=== PATIENT | female | born 1955 | race Caucasian/White ===

== ENCOUNTER 2020-06-28 16:14 | Emergency (ER) | payer MEDICARE, SELFPAY ==
--- NOTE | 2020-06-28 16:24 | ED.GENADULT ---
HPI - General Adult General Chief complaint: Skin/Abscess/Foreign Body Stated complaint: Rash Time Seen by Provider: 06/28/20 16:23 Source: patient Mode of arrival: ambulatory Limitations: no limitations History of Present Illness HPI narrative: 65-year-old female patient presents to the the medical center with complaints of a rash to the abdomen, back and lower extremities for the past month. Patient states she has had issues with bedbugs before in the past but states that she had never had a rash before in the past. Patient states they are very itchy. Patient states she has been treated with Bactrim and hydroxyzine for this which gave her no relief. Denies any fevers, chest pain or shortness of breath. Denies any new lotions detergents or soaps. Related Data Home Medications Medication Instructions Recorded Confirmed aspirin [Adult Low Dose Aspirin] 81 mg PO DAILY 06/28/20 06/28/20 cholecalciferol (vitamin D3) 125 mcg PO EVERY OTHER DAY 06/28/20 06/28/20 [Vitamin D3] glipizide 10 mg PO BID 06/28/20 06/28/20 hydrochlorothiazide 25 mg PO DAILY 06/28/20 06/28/20 lisinopril 10 mg PO DAILY 06/28/20 06/28/20 loratadine 10 mg PO DAILY 06/28/20 06/28/20 lovastatin 10 mg PO DAILY 06/28/20 06/28/20 oxybutynin chloride 10 mg PO DAILY 06/28/20 06/28/20 pioglitazone 30 mg PO DAILY 06/28/20 06/28/20 sitagliptin [Januvia] 100 mg PO DAILY 06/28/20 06/28/20 Allergies Allergy/AdvReac Type Severity Reaction Status Date / Time No Known Allergies Allergy Verified 06/28/20 16:40 Review of Systems Review of Systems: Narrative: CONSTITUTIONAL: Denies fever, chills, or sweats. EYES: Denies visual changes, redness, or discharge. ENT: Denies rhinorrhea, congestion, sore throat, or otalgia. CARDIOVASCULAR: Denies chest pain, palpitations, or edema. RESPIRATORY: Denies cough or dyspnea. GASTROINTESTINAL: Denies abdominal pain, nausea, vomiting, or diarrhea. GENITOURINARY: Denies dysuria or hematuria. SKIN: Positive rash with itchiness to the lower abdomen, back and bilateral lower extremities x1 month MUSCULOSKELETAL: Denies back pain, joint pain, or myalgia. NEUROLOGIC: Denies headache, numbness, or weakness. PSYCHIATRIC: Denies anxiety or depression. [facility] Past Medical History Medical History (Updated 06/28/20 @ 16:46 by FELIPE Meek) Cardiac disorder Vein stripping Diabetes Hypercholesterolemia Hypertension Surgical History Surgical History (Updated 06/28/20 @ 16:27 by FELIPE Meek) History of cholecystectomy Comments At the time of my signature I agree with nursing past medical history, surgical, social, and family history. There is no relevant family history pertinent to the presenting complaint. Exam Narrative: Exam Narrative: GENERAL: Well-appearing, well-nourished, and in no acute distress. HEAD: Normocephalic, atraumatic. EYES: PERRLA and EOMI. ENT: Nares clear, no rhinorrhea or epistaxis. Mucous membranes moist. NECK: Supple. No lymphadenopathy CHEST: Clear to auscultation. No respiratory distress. HEART: Regular rate and rhythm. No murmur heard. Normal peripheral pulses. ABDOMEN: Soft, nontender, nondistended, normal active bowel sounds. EXTREMITIES: Normal range of motion. No edema. SKIN: Warm, dry, patient has small red bumps surrounded by erythema. There is some blistered areas and papular eruptions and flat patches that seem to be inflamed to the areas of the belt area that wraps around to the lower back that goes into the buttocks as well as similar rash noted to bilateral lower extremities below the knee. NEURO: No focal deficits. Alert and oriented x3. Course Vital Signs Vital signs: Vital Signs Temperature 36.7 C 06/28/20 16:29 Pulse Rate 79 06/28/20 16:29 Respiratory Rate 16 06/28/20 16:29 Blood Pressure 105/62 06/28/20 16:29 Pulse Oximetry 98 06/28/20 16:29 Temperature 36.7 C 06/28/20 16:29 Pulse Rate 79 06/28/20 16:29 Respiratory Rate 16 06/28/20 16:29
[2020-06-28 16:29] VITALS: BP 105/62; PULSE 79; RESP 16; TEMP 36.7; O2SAT 98
== END 2020-06-28 16:53 | disposition home or self-care (01) ==
PROVIDERS: Emergency Provider Nurse Practitioner Family; PCP Internal Medicine
DX: S30.861A Insect bite (nonvenomous) of abdominal wall, initial encounter (principal); S20.469A Insect bite (nonvenomous) of unspecified back wall of thorax, initial encounter; S30.860A Insect bite (nonvenomous) of lower back and pelvis, initial encounter; W57.XXXA Bitten or stung by nonvenomous insect and other nonvenomous arthropods, initial encounter; E11.9 Type 2 diabetes mellitus without complications; E78.00 Pure hypercholesterolemia, unspecified; I10 Essential (primary) hypertension
CPT/HCPCS: 99213; G0463

== ENCOUNTER 2025-08-22 17:52 | Emergency (ER) | payer MEDICARE, SELFPAY ==
--- OUTSIDE RECORDS SUMMARY | 2025-08-22 17:55 | XMS_ITS | Encounter Summary ---
Author Organization [facility] Address [address] [place] [address] Phone Care Team Providers Care Basket Hand Weaver Name Role Phone Trish Og MD Primary Care Provider [phone] Lisa Porter MD Unavailable Guy Roche MD Primary Care Provider [phone] Ryan Coats MD Primary Care Provider + Reason for Visit * Reason Comments Medication Refill Encounter Details Date Type Department Care Team (Late st Contact Info) Description 04/04/2023 Refill [facility] - Endocrinology - [place] [address] [place] [address] Lisa Porter MD [address] [address] Medication Refill Social History Tobacco Use Types Packs/Day Years Used Date Smoking Tobacco: Former Cigarettes Smokeless Tobacco: Never Alcohol Use Standard Drinks/Week Comments No 0 (1 standard drink = 0.6 oz pur e alcohol) Comments No Sex and Gender Information Value Date Recorded Sex Assigned at Female 07/06/2023 9:19 AM CDT Legal Sex Female 7:46 PM CDT Gender Identity Female 07/06/2023 9:19 AM CDT Sexual Orientation Not on file documented as of this encounter Miscellaneous Notes * Telephone Encounter - Tonya Nieto RN - 04/05/2023 8:44 AM CDT Requested Prescriptions Pending Prescriptions Disp Refills ??? glipiZIDE (GLUCOTROL) 10 MG Tablet [Pharmacy Med Name: GLIPIZIDE 10MG TABLETS] 180 Tablet 1 Sig: TAKE 1 TABLET BY MOUTH TWICE DAILY ??? Ozempic, 1 MG/DOSE, 4 MG/3ML Solution Pen-injector [Pharmacy Med Name: OZEMPIC 1MG PER DOSE (1X4MG PEN)] 9 mL 1 Sig: INJECT 1 MG UNDER THE SKIN ONCE WEEKLY ??? Glucose Blood (OneTouch Verio) Strip 100 Strip 3 Sig: Test blood glucose 1x daily. E11.42, non-insulin dependent ??? Blood Glucose Monitoring Suppl (OneTouch Verio) w/Device Kit 1 Kit 0 Si Kit by Does not apply route daily. Test blood glucose 1x daily. E11.42, non-insulin dependent ??? OneTouch Delica Lancets 33G Misc Sig: by Does not apply route. Next appt: 04/13/2023 documented in this encounter Plan of Treatment Upcoming Encounters Date Type Department Care Team (Late st Contact Info) Description 11/13/2025 10:30 AM EFFICIENCY MINER Office Visit [facility] - Endocrinology - [place] [address] [place] [id number] Lisa Porter MD [address] [phone] documented as of this encounter Visit Diagnoses Diagnosis Type 2 diabetes mellitus with diabetic polyneuropathy, without long-term current use of insulin- Primary documented in this encounter Care Teams Basket Hand Weaver Relationship Specialty Start Date End Date Trish Og MD PCP - General Internal Medicine 12/09/17 03/06/24 Guy Roche MD [address] [place] [address] [address] [place] [address] PCP - General Family Medicine 03/07/24 04/17/25 Ryan Coats MD [address] [place] [address] [address] [place] [address] PCP - General Family Medicine 04/18/25 Lisa Porter MD #2 [facility] [address] [address] Consulting Physician Endocrinology 05/26/22 documented as of this encounter
--- OUTSIDE RECORDS SUMMARY | 2025-08-22 17:55 | XMS_ITS | Encounter Summary ---
Author Organization [facility] Address [address] [place] [address] Phone Care Team Providers Care Roller Picker Name Role Phone Lisa Porter MD Unavailable Ryan Coats MD Primary Care Provider + Reason for Referral * Radiology Services (Routine) - Closed Specialty Diagnoses / Procedures Referred By Dorothy noel Referred To Contact Radiology Diagnoses Encounter for screening mammogram for breast cancer Procedures [facility] SCREENING BILATERAL DIGITAL W CAD W KILEY Ryan Coats MD [address] [place] [address] [address] [place] [address] Phone: tel: fax: Referral ID Status Reason Start Date Expiration Date Visits Re quested Visits Authorized [id number] Closed 04/18/2025 1 1 Encounter Details Date Type Department Care Team (Late st Contact Info) Description 04/18/2025 Transcribe Orders [facility] Call Center [address] [place], [place] [id number] Ryan Coats MD [address] [place] [address] [address] [place] [address] Encounter for screening mammogram for breast cancer (Primary Dx) Social History Tobacco Use Types Packs/Day Years [...] on file documented as of this encounter Plan of Treatment Upcoming Encounters Date Type Department Care Team (Late st Contact Info) Description 11/13/2025 10:30 AM 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 Office Visit [facility] - Endocrinology [facility] [address]2 [place] [address] Lisa Porter MD #[address] [address] documented as of this encounter Results * [facility] SCREENING BILATERAL DIGITAL W CAD W KILEY (06/05/2025 10:55 AM CDT) Anatomical Region Laterality Modality breast Bilateral Mammography 06/05/2025 10:1 7 AM CDT Narrative 06/06/2025 12:08 PM CDT - [facility] SCREENING BILATERAL DIGITAL W CAD W KILEY BILATERAL DIGITAL SCREENING MAMMOGRAM 3D/2D WITH CAD WITH MEDIOLATERAL OBLIQUE CRANIOCAUDAL: 06/05/2025 The study was acquired using digital technology and interpreted from soft copy. Current study was also evaluated with ICAD version 7.2. 2D digital mammographic views, as well as 3D digital tomosynthesis were performed in the CC and MLO projections. CLINICAL: Routine screening. Patient has no complaints. No personal history of cancer. No family history of breast cancer. COMPARISONS: Comparison is made to exams dated: 03/17/2024, 02/11/2022, 12/03/2020, [facility] BREAST TISSUE:The breasts are heterogeneously dense, which may obscure small masses. FINDINGS: There are benign calcifications in both breasts. No significant masses, calcifications, or other findings are seen in either breast. There has been no significant interval change. IMPRESSION: BENIGN There is no mammographic evidence of malignancy. A 1 year screening mammogram is recommended. A letter will be sent to the patient with these results. The patient will be entered into a reminder system with a target due date of 1 year for her next screening exam. Electronically signed by: Nhi holden/penrad:06/06/2025 10:48:48 Legal Referee(s): RT Zara(R)(M), [facility] letter sent: Normal Exam Reading location: [facility] Mammogram BI-RADS: Category 2: Benign Procedure Note Nhi Leone MD - 06/06/2025 - [facility] SCREENING BILATERAL DIGITAL W CAD W KILEY BILATERAL DIGITAL SCREENING MAMMOGRAM 3D/2D WITH CAD WITH MEDIOLATERAL OBLIQUE CRANIOCAUDAL: 06/05/2025 The study was acquired using digital technology and interpreted from soft copy. Current study was also evaluated with ICAD version 7.2. 2D digital mammographic views, as well as 3D digital tomosynthesis were performed in the CC and MLO projections. CLINICAL: Routine screening. Patient has no complaints. No personal history of cancer. No family history of breast cancer. COMPARISONS: Comparison is made to exams dated: 03/17/2024, 02/11/2022, 12/03/2020, and 11/05/2020 [facility]. BREAST TISSUE:The breasts are heterogeneously dense, which may obscure small masses. FINDINGS: There are benign calcifications in both breasts. No significant masses, calcifications, or other findings are seen in either breast. There has been no significant interval change. IMPRESSION: BENIGN There is no mammographic evidence of malignancy. A 1 year screening mammogram is recommended. A letter will be sent to the patient with these results. The patient will be entered into a reminder system with a target due date of 1 year for her next screening exam. Electronically signed by: Nhi holden/penrad:06/06/2025 10:48:48 Legal Referee(s): Lois Diaz, RT(R)(M), [facility] letter sent: Normal Exam Reading location: [place] Mammogram BI-RADS: Category 2: Benign Ryan Coats MD IMG MAMMO ORDERABLES Fin al Result documented in this encounter Visit Diagnoses Diagnosis Encounter for screening mammogram for breast cancer- Primary Encounter for screening mammogram for breast cancer documented in this encounter Care Teams Roller Picker Relationship Specialty Start Date End Date Ryan Coats MD [address] [facility] [address] [place] [address] PCP - General Family Medicine 04/18/25 Lisa Porter MD #2 [facility] [address] [place] [address] Consulting Physician Endocrinology 05/26/22 documented as of this encounter
--- OUTSIDE RECORDS SUMMARY | 2025-08-22 17:55 | XMS_ITS | Encounter Summary ---
Author Organization [facility] Address [address] [place] [address] Phone Care Team Providers Care Barrel Builder Name Role Phone Trihs Og MD Primary Care Provider Lisa Porter MD Unavailable Guy Roche MD Primary Care Provider [phone] Ryan Coats MD Primary Care Provider + Reason for Visit * Reason Comments Medication Refill Encounter Details Date Type Department Care Team (Late st Contact Info) Description 10/18/2022 Refill [facility] - Endocrinology - [place] [address] [place] [address] Lisa Porter MD [address] [address] Medication Refill Social History Tobacco [...] AM CDT Sexual Orientation Not on file COVID-19 Exposure Response Date Recorded In the last 10 days, have yo u been in contact with someone who was confirmed or suspected to have Coronavirus/COVID-19? No / Unsure 10/08/2022 10:04 AM CARDIOLOGY MANAGER documented as of this encounter Miscellaneous Notes * Telephone Encounter - Tonya Nieto, RN - 10/19/2022 9:22 AM CARDIOLOGY MANAGER Requested Prescriptions Pending Prescriptions Disp Refills ??? Ozempic, 1 MG/DOSE, 4 MG/3ML Solution Pen-injector [Pharmacy Med Name: OZEMPIC 1MG PER DOSE (1X4MG PEN)] 9 mL Sig: INJECT 1 MG UNDER THE SKIN ONCE A WEEK Next appt: 01/14/2023 IOLOGY MANAGER documented in this encounter Plan of Treatment Upcoming Encounters Date Type Department Care Team (Late st Contact Info) Description 11/13/2025 10:30 AM CARDIOLOGY MANAGER Office Visit [facility] - Endocrinology - [place] [address] [place] [address] Lisa Porter MD [address] [address] documented as of this encounter Visit Diagnoses Not on filedocumented in this encounter Care Teams Barrel Builder Relationship Specialty Start Date End Date Trish Og MD PCP - General Internal Medicine 12/09/17 03/06/24 Guy Roche MD [address] [place] [address] PCP - General Family Medicine 03/07/24 04/17/25 Ryan Coats MD [address] [facility] [address] [place] [address] PCP - General Family Medicine 04/18/25 Lisa Porter MD #2 [facility] [address] [place] [address] Consulting Physician Endocrinology 05/26/22 documented as of this encounter
--- OUTSIDE RECORDS SUMMARY | 2025-08-22 17:55 | XMS_ITS | Clinical Summary ---
Author Organization [facility] Address [address] [facility], [place] [address] Phone Care Team Providers Care Marble Chip Terrazzo Worker Name Role Phone Lisa Porter MD Unavailable Ryan Coats MD Primary Care Provider + Allergies No known active allergies Medications lisinopril (PRINIVIL, ZESTRIL) 10 MG Tablet 8 Active hydroCHLOROthia zide 25 MG Tablet 8 Active oxybutynin (DITROPAN) 5 MG Tablet 8 Active Aspirin 81 MG Tablet Take 81 mg by mouth daily. Active ergocalciferol (VITAMIN D) 20491 UNIT Capsule 8 Active Lancets (VITALET 26 GAUGE LANCET) [facility] [place] test blood sugar once daily 5 Active Blood Glucose Monitoring Suppl (TRUERESULT BLOOD GLUCOSE) w/Device Kit test blood sugars once daily 5 Active loratadine (CLARITIN) 10 MG Tablet TK 1 T PO QD PRN 0 9 Active triamcinolone (KENALOG) 0.1 % Cream Apply. 0 Active diphenhydrAMINE (BENADRYL) 25 MG Capsule Take 25 mg by mouth. 0 Active cetirizine (ZyrTEC) 10 MG Tablet TAKE 1 TABLET BY MOUTH DAILY NEEDED 3 Active Blood Glucose Monitoring Suppl (OneTouch Verio) w/Device KitIndications: Type 2 diabetes mellitus with diabetic polyneuropathy, without long-term current use of insulin 1 Kit by Does not apply route daily. Test blood glucose 1x daily. E11.42, non-insulin dependent 1 Kit 3 Active Glucose Blood (OneTouch Ultra) Strip Once a day 100 Each 3 4 Active Lancets (OneTouch Delica Plus [id number]) MiscIndications :Type 2 diabetes mellitus with diabetic polyneuropathy, without long-term current use of insulin USE DAILY 100 Each 3 4 Active glipiZIDE (GLUCOTROL) 5 MG Tablet Take 1 Tablet by mouth 2 times daily. 180 Tablet 1 5 Active semaglutide, 1 MG/DOSE, (Ozempic, 1 MG/DOSE,) 4 MG/3ML Solution Pen-injectorInd ications:Type 2 diabetes mellitus with diabetic polyneuropathy, without long-term current use of insulin 1 mg by Subcutaneous route once a week. 9 mL 1 5 Active Active Problems Problem Noted Date Diagnosed Date Thyroid nodule greater than or equal to 1.5 cm in diameter incidentally noted on imaging study 03/26/2021 Class 1 obesity due to exces s calories with serious comorbidity and body mass index (BMI) of 33.0 to 33.9 in adult 05/15/2019 Dyslipidemia 05/15/2019 High blood pressure 05/15/2019 Type 2 diabetes mellitus wit h diabetic polyneuropathy, without long-term current use of insulin 01/14/2018 Diabetic polyneuropathy asso ciated with type 2 diabetes mellitus 01/14/2018 Encounters Date Type Department Care Team Description 06/05/2025 10:14 AM CDT - 06/05/2025 11:59 PM CDT Hospital Encounter [facility] [address] [place] [address] Ryan Coats MD Discharge Disposition: Discharged to home or Selfcare 06/05/2025 Travel from Last 3 Months Family History Medical History Relation Name Comments Hypertension Brother Hypertension Mother Relation Name Status Comments Brother Father Mother Social History Tobacco Use Types Packs/Day Years Used Date Smoking Tobacco: Former Cigarettes Smokeless Tobacco: Never Tobacco Cessation:Counseling Given: Not Answered Alcohol Use Standard Drinks/Week Comments No 0 (1 standard drink = 0.6 oz pur e alcohol) Comments No Sex and Gender Information Value Date Recorded Sex Assigned at Female 07/06/2023 9:19 AM CDT Legal Sex Female 7:46 PM CDT Gender Identity Female 07/06/2023 9:19 AM CDT Sexual Orientation Not on file Last Filed Vital Signs Vital Sign Reading Time Taken Comments Blood Pressure 118/70 05/08/2025 10:14 AM CDT Pulse 75 05/08/2025 10:14 AM CDT Temperature 36.3 C (97.3 F) 05/08/2025 10:14 AM CDT Respiratory Rate 22 05/08/2025 10:14 AM CDT Oxygen Saturation 95% 05/08/2025 10:14 AM CDT Inhaled Oxygen Concentration - - Weight 86 kg (189 lb 9.6 oz) 05/08/2025 10:14 AM CDT Height 170.2 cm (5' 7) 11/06/2024 10:34 AM BIOINFORMATICS RESEARCH TECHNICIAN Body Mass Index 29.7 11/06/2024 10:34 AM BIOINFORMATICS RESEARCH TECHNICIAN Plan of Treatment Upcoming Encounters Date Type Department Care Team (Late st Contact Info) Description 11/13/2025 10:30 AM BIOINFORMATICS RESEARCH TECHNICIAN Office Visit [facility] [place] [address] [place] [address] Lisa Porter MD [address] [address] Health Maintenance Due Date Last Done Comments Hepatitis C Virus (HCV) Screening 1955 TdaP Immunization 1955 Pneumococcal Immunization (50+ years) (1 of 2 - PCV) 1974 Cologuard 2000 Colonoscopy 2000 Colorectal Cancer Screening 2000 Immunochemical Fecal Occult Blood 2000 Zoster Immunization (1 of 2) 2005 Respiratory Syncytial Virus (RSV) Immunization (Adult) (1 - Risk 60-74 years 1-dose series) 2015 Medicare Initial AWV [id number] 05/22/2020 Diabetes: Nephropathy Screening 04/06/2024 04/06/2023, 04/06/2023, 01/12/2023, Additional history exists Influenza Immunization (#1) 2025 SARS-COV-2 Immunization ( season) 2025 Diabetes: Hemoglobin A1c 11/07/2025 025, 02/05/2025, 11/06/2024, Additional history exists Diabetes: Eye Exam 12/26/2025 12/26/2024, 03/06/2019 Diabetes: Foot Exam 02/05/2026 02/05/2025, Mammogram 06/05/2026 06/05/2025, 02/21, 02/11/2022, Additional history exists DEXA Bone Density 06/27/2026 06/27/2024 Hepatitis B Immunization Aged Out No longer eligible based on patient's age to complete this topic Human Papillomavirus (HPV) Immunization Aged Out No longer eligible based on patient's age to complete this topic Meningococcal Immunization (ACWY) Aged Out No longer eligible based on patient's age to complete this topic Rotavirus Immunization Aged Out No lo nger eligible based on patient's age to complete this topic Procedures Procedure Name Priority Date/Time Associated Diagnosis Comments [facility] SCREENING BILATERAL DIGITAL W CAD W KILEY Routine 06/05/2025 10:55 AM CDT Encounter for screening mammogram for breast cancer POCT GLYCOSYLATED HEMOGLOBIN Routine 05/08/2025 10:21 AM CDT Type 2 diabetes mellitus with diabetic polyneuropathy, without long-term current use of insulin (HCC) HM DILATED EYE EXAM 12/26/2024 1 2:00 AM BIOINFORMATICS RESEARCH TECHNICIAN AK[facility]IL BONE DENSITOMETRY AXIAL SKELETON Routine 06/27/2024 1:45 PM CDT Encounter for osteoporosis screening in asymptomatic postmenopausal patient UR MICROALBUMIN/CREATIN INE RATIO RANDOM 04/06/2023 12:00 AM CDT from Last 3 Months or Most Recently Relevant to Health Maintenance Results * [facility] SCREENING BILATERAL DIGITAL W CAD W KILEY (06/05/2025 10:55 AM CDT) Anatomical Region Laterality Modality breast Bilateral Mammography 06/05/2025 10:1 7 AM CDT Narrative 06/06/2025 12:08 PM CDT - [facility] SCREENING BILATERAL DIGITAL W CAD W KILEY BILATERAL DIGITAL SCREENING MAMMOGRAM 3D/2D WITH CAD WITH MEDIOLATERAL OBLIQUE CRANIOCAUDAL: 06/05/2025 The study was acquired using digital technology and interpreted from soft copy. Current study was also evaluated with [employer] FIMA version 7.2. 2D digital mammographic views, as well as 3D digital tomosynthesis were performed in the CC and MLO projections. CLINICAL: Routine screening. Patient has no complaints. No personal history of cancer. No family history of breast cancer. COMPARISONS: Comparison is made to exams dated: 03/17/2024, 02/11/2022, 12/03/2020, and [facility]. BREAST TISSUE:The breasts are heterogeneously dense, which [...] next screening exam. Electronically signed by: Nhi holden/isabel:06/06/2025 10:48:48 Braid Pattern Setter(s): RT Zara(Ghada)(M), [facility] letter sent: Normal Exam Reading location: [facility] Mammogram BI-RADS: Category 2: Benign Procedure Note Nhi Leone MD - 06/06/2025 - [facility] SCREENING BILATERAL DIGITAL W CAD W KILEY [...] exams dated: 03/17/2024, 02/11/2022, 12/03/2020, and 11/05/2020 [facility]. BREAST TISSUE:The breasts are heterogeneously dense, [...] next screening exam. Electronically signed by: Nhi Leone M.D. ab/isabel:06/06/2025 10:48:48 Braid Pattern Setter(s): RT Zara(R)(M), [facility] letter sent: Normal Exam Reading location: [place] Mammogram BI-RADS: Category 2: Benign Ryan Coats MD IMG MAMMO ORDERABLES Fin al Result * (ABNORMAL) POCT GLYCOSYLATED HEMOGLOBIN (05/08/2025 10:21 AM CDT) HGB-A1C 6.7(A) 4 - 6 % Blood 05/08/2025 10:2 1 AM CDT Lisa Porter MD POINT OF CARE TESTING (MANUAL) F inal Result * HM DILATED EYE EXAM (12/26/2024 12:00 AM BIOINFORMATICS RESEARCH TECHNICIAN) 12/26/2024 us Provider Scan PROCEDURE/MINOR SURGICAL ORDERAB LES Final Result SCAN * [facility] BONE DENSITOMETRY AXIAL SKELETON (06/27/2024 1:45 PM CDT) Anatomical Region Laterality Modality BODY N/A Computed Radiogr aphy 06/27/2024 8:31 PM CDT Impressions 06/27/2024 8:34 PM CDT IMPRESSION: Low Bone Mass. REFERENCE: Bone mineral density: T-Score: Normal (T-score above or = -1.0) Low bone mass (T-score between -1.0 and -2.5) replaces the previously used term osteopenia Osteoporosis (T-score = or below -2.5) Z-Score: Within the expected range for age (Z-score above -2.0) Below the expected range for age (Z-score is -2.0 or below) Please see below follow up recommendations. Medical evaluation for secondary causes of low bone mineral density may be appropriate. FRAX is a World Health Organization validated fracture risk assessment tool that calculates a person's 10 year probability of a major osteoporosis related fracture and hip fracture. According to the National Osteoporosis Foundation guidelines, postmenopausal women and men age 50 or older with low bone mass and a 10 year probability of a major osteoporosis related fracture = or greater than 20% or a 10 year probability of a hip fracture = or greater than 3% should be considered for pharmacological treatment for the prevention of osteoporosis. For further information, including treatment recommendations, please refer to the 2019 ISCD Official Positions (http://www.iscd.org) and the NOF's Clinician's Guide to Prevention and Treatment of Osteoporosis (http://www.nof.org/professionals/clinical-guidelines) Narrative 06/27/2024 8:34 PM CDT EXAM DESCRIPTION: [facility] BONE DENSITOMETRY AXIAL SKELETON REASON FOR STUDY: 69 y/o year old F with given history of: Encounter for osteoporosis screening in asymptomatic postmenopausal patient Curing Room Supervisor/Model: [employer] (S/N [id number]) CLINICAL INFORMATION: Current height: 67 inches Maximum height: 67 inches Weight: 184 pounds Risk factors: Postmenopausal COMPARISON: None available FINDINGS: AP LUMBAR SPINE L1-L4: Total BMD is 1.184 g/cm2 T-score is -0.1 LEFT HIP: Total BMD is 0.781 g/cm2 T-score is -1.8 Femoral neck BMD is 0.854 g/cm2 T-score is -1.3 FRAX: 10 year risk for a major osteoporotic fracture is 9.4 %, 10 year risk for a hip fracture is 1.2 % THIS IS AN ELECTRONICALLY VERIFIED FINAL REPORT 06/27/2024 8:31 PM - Electronically signed by Robi Drummond M.D. MF: [email or web address] Report ID: [id number] Reading Location: [place] [id number] Procedure Note Robi Drummond MD - 06/27/2024 EXAM DESCRIPTION: [facility] BONE DENSITOMETRY AXIAL SKELETON REASON FOR STUDY: 69 y/o year old F with given history of: Encounter for osteoporosis screening in asymptomatic postmenopausal patient Curing Room Supervisor/Model: [employer] (S/N [id number]) CLINICAL INFORMATION: Current height: 67 inches Maximum height: 67 inches Weight: 184 pounds Risk factors: Postmenopausal COMPARISON: None available FINDINGS: AP LUMBAR SPINE L1-L4: Total BMD is 1.184 g/cm2 T-score is -0.1 LEFT HIP: Total BMD is 0.781 g/cm2 T-score is -1.8 Femoral neck BMD is 0.854 g/cm2 T-score is -1.3 FRAX: 10 year risk for a major osteoporotic fracture is 9.4 %, 10 year risk for a hip fracture is 1.2 % THIS IS AN ELECTRONICALLY VERIFIED FINAL REPORT 06/27/2024 8:31 PM - Electronically signed by Robi Drummond M.D. MF: [email or web address] Report ID: [id number] Reading Location: [id number] IMPRESSION: Low Bone Mass. REFERENCE: Bone mineral density: T-Score: Normal (T-score above or = -1.0) Low bone mass (T-score between -1.0 and -2.5) replaces the previously used term osteopenia Osteoporosis (T-score = or below -2.5) Z-Score: Within the expected range for age (Z-score above -2.0) Below the expected range for age (Z-score is -2.0 or below) Please see below follow up recommendations. Medical evaluation for secondary causes of low bone mineral density may be appropriate. FRAX is a World Health Organization validated fracture risk assessment tool that calculates a person's 10 year probability of a major osteoporosis related fracture and hip fracture. According to the National Osteoporosis Foundation guidelines, postmenopausal women and men age 50 or older with low bone mass and a 10 year probability of a major osteoporosis related fracture = or greater than 20% or a 10 year probability of a hip fracture = or greater than 3% should be considered for pharmacological treatment for the prevention of osteoporosis. For further information, including treatment recommendations, please refer to the 2019 ISCD Official Positions (http://www.iscd.org) and the NOF's Clinician's Guide to Prevention and Treatment of Osteoporosis (http://www.nof.org/professionals/clinical-guidelines) Gyu Roche MD IMG DEXA ORDERABLES Final Re sult * UR MICROALBUMIN/CREATININE RATIO RANDOM (04/06/2023 12:00 AM CDT) ALB/CREAT RATIO 8 Normal - Normal SCAN 04/06/2023 us Provider Scan URINE ORDERABLES Final Result SCAN from Last 3 Months or Most Recently Relevant to Health Maintenance Insurance MEDICARE C [employer] Care Teams Marble Chip Terrazzo Worker Relationship Specialty Start Date End Date Ryan Coats MD [address] [facility] [address] [place] [address] PCP - General Family Medicine 04/18/25 Lisa Porter MD #[address] [facility] [address] [place] [address] Consulting Physician Endocrinology 05/26/22
--- OUTSIDE RECORDS SUMMARY | 2025-08-22 17:55 | XMS_ITS | Clinical Summary ---
Author Organization [facility] Address [address] [place] [address] Care Team Providers Care Lead Recoverer Name Role Phone Trish Og MD Primary Care Provider Allergies No known active allergies Medications glyBURIDE (DIABETA) 5 mg tablet TAKE 1 TABLET BY MOUTH BEFORE BREAKFAST 60 6 2 Active oxybutynin XL (DITROPAN-XL) 10 mg 24 hr tablet take 1 tablet by oral route every day 30 0 7 Active Additional Information Patient not taking.Reported on 05/11/2017 blood glucose diagnostic (TRUETEST TEST STRIPS) strip test daily 1 by finger stick route 100 strip 5 5 Active lancets (LANCETS,ULTRA THIN) 26 gauge [facility] test blood sugar once daily 100 each 5 5 Active blood-glucose meter (TRUERESULT BLOOD GLUCOSE SYSTM) kit test blood sugars once daily 1 kit 0 5 Active blood-glucose meter (TRUERESULT BLOOD GLUCOSE SYSTM) kit test blood sugars once daily 1 kit 0 5 Active lisinopril (PRINIVIL,ZESTR IL) 10 mg tablet TAKE 1 TABLET BY MOUTH EVERY DAY 30 0 0 Active Additional Information Patient not taking.Reported on 05/11/2017 lisinopril (PRINIVIL,ZESTR IL) 10 mg tablet Take 1 tablet (10 mg total) by mouth daily. 30 tablet 3 7 Active hydroCHLOROthia zide (HYDRODIURIL) 25 mg tablet Take 1 tablet (25 mg total) by mouth daily. 30 tablet 3 7 Active diphenhydrAMINE (diphenhydrAMIN E) 25 mg capsule Take 1 tablet/capsule (25 mg total) by mouth every 6 (six) hours as needed for itching 20 capsule 0 Active triamcinolone (KENALOG) 0.1 % cream Apply topically 2 (two) times a day 453.6 g 0 Active Active Problems No known active problems Surgical History Surgery Date Site/Laterality Comments CHOLECYSTECTOMY 1986 gallbladder removed HYSTERECTOMY Hysterectomy Medical History Medical History Date Comments Arthritis Arthritis Hypertension Hypertension Hx Other Medical cellulitis; Com ments: follow-up Hx Other Medical Diabetes Family History Medical History Relation Name Comments Coronary artery disease Father Duane nary artery disease; Cause of : Coronary artery disease Heart disease Father Heart disease; Hypertension Mother Hypertension; Relation Name Status Comments Father (Age 78) Mother Social History Tobacco Use Types Packs/Day Years Used Date Smoking Tobacco: Never Alcohol Use Standard Drinks/Week Comments No 0 (1 standard drink = 0.6 oz pur e alcohol) Comments Unknown Sex and Gender Information Value Date Recorded Sex Assigned at Not on file Legal Sex Female 8:35 AM ENGINEER Gender Identity Not on file Sexual Orientation Not on file Obstetrics History Last Filed Vital Signs Vital Sign Reading Time Taken Comments Blood Pressure 111/76 02/13/2021 3:30 PM CDT Pulse 88 02/13/2021 4:30 PM CDT Temperature 36.5 C (97.7 F) 02/13/2021 3:53 PM CDT Respiratory Rate 15 02/13/2021 4:30 PM CDT Oxygen Saturation 96% 02/13/2021 4:30 PM CDT Inhaled Oxygen Concentration - - Weight 97.5 kg (215 lb) 02/13/2021 11:22 AM CDT Height 170.2 cm (5' 7) 02/13/2021 11:22 AM CDT Body Mass Index 33.67 02/13/2021 11:22 AM CDT Plan of Treatment Not on file Insurance IDPA Care Teams Lead Recoverer Relationship Specialty Start Date End Date Trish Og MD PCP - General 02/13/21
--- OUTSIDE RECORDS SUMMARY | 2025-08-22 17:55 | XMS_ITS | Data Portability ---
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 Plan of Treatment Reminders Order Date Submit Date Provider Last Modified By Organization Details Last Modified Time Details Appointments None recorded. Lab lipid panel, serum 2024 025 [facility] [address], [place], [address], 5 06:44:46 noninvasive colorectal cancer DNA + occult blood screening, QL, stool 2024 025 AUDUBON [facility] (Cologuard Orders Only), [address], [address], [place], [address], 5 17:49:54 CMP, serum or plasma 2024 025 [facility], 2022 Sharon Silva, [address], [place], [address], 5 06:44:48 CMP, serum or plasma 2023 024 [facility], 2022 Sharon Silva, [address], [place], [address], 4 10:13:19 albumin/cre atinine, mass ratio, urine 2023 024 [facility], 2022 Sharon Silva, [address], [place], [address], 4 10:13:18 Referral None recorded. Procedures None recorded. Surgeries None recorded. Imaging DEXA, axial skeleton + vertebral fracture assessment 2023 AUDUBON Os ([facility]) Scheduling, [address] [place], [address], 4 21:36:54 MAMMO, screening, digital, bilateral 2023 [facility] ([facility]) Scheduling, [address] [place], [address], 4 13:39:29 Medication Orders Ozempic 2 mg/dose (8 mg/3 mL) subcutaneou s pen injector [facility]23 [id number], [address] , [place], [place], [id number], 5 11:53:12 Patient TargetsNo targets recorded. Patient Instructions Encounter Date Encounter Id Patient Instructions Last Modified By Organization Details Last Modified Time 01/03/2024 [id number] mammogram: about this test ssuthan Not available 01/03/2024 11:49:41 A healthy lifestyle: care instructions ssuthan Not available 01/03/2024 11:49:41 high cholesterol : care instructions ssuthan Not available 01/03/2024 11:49:41 learning about type 2 diabetes ssuthan Not available 01/03/2024 11:49:41 type 2 diabetes: care instructions ssuthan Not available 01/03/2024 11:49:41 learning about high blood pressure ssuthan Not available 01/03/2024 11:49:41 03/20/2024 [id number] Attending Physician Addendum I did not personally see or examine the patient with the resident. I was physically present to provide indirect supervision through entire encounter. I have reviewed the documentation and agree with the history, physical findings, work-up, and medical decision making as recorded. Kenya Corley MD Not available 03/24/2024 18:09:55 02/02/2025 [id number] learning about type 2 diabetes dshehata Not available 02/02/2025 11:28:50 type 2 diabetes: care instructions dshehata Not available 02/02/2025 11:28:50 high cholesterol : care instructions dshehata Not available 02/02/2025 11:28:50 tetanus and diphtheria booster: care instructions dshehata Not available 02/02/2025 11:35:34 A healthy lifestyle: care instructions dshehata Not available 02/02/2025 11:28:50 learning about high blood pressure dshehata Not available 02/02/2025 11:28:50 I was present in the clinic to discuss this patient at the time of the visit. I agree with the documented assessment and plan MD reyna [email or web address] Not available 02/05/2025 17:02:53 05/07/2025 [id number] advance care planning: care instructions dshehata Not available 05/07/2025 11:34:41 preventing falls : care instructions dshehata Not available 05/07/2025 11:34:42 Quitting Tobacco : Care Instructions dshehata Not available 05/07/2025 11:34:42 Medicare Wellnes s Preventive Checklist dshehata Not available 05/07/2025 11:34:42 eating healthy foods: care instructions dshehata Not available 05/07/2025 11:34:41 AD8 Dementia Screening Interview dshehata Not available 05/07/2025 11:34:42 I was present in the clinic to discuss this patient at the time of the visit. I agree with the documented assessment and plan Enrrique Montalvo MD [email or web address] Not available 05/07/2025 11:55:05 08/14/2025 [id number] A healthy lifestyle: care instructions Not available 08/15/2025 12:45:21 I was present an d available in the clinic during the encounter. I discussed the patient's history, exam findings, and plan with the resident physician and agree with the assessment and plan as documented. Ramakrishna Yadav MD Not available 08/15/2025 12:45:10 Reason for Referral None Reported. Results Created Date Observation Date Name Description Value Unit Range Abnormal Flag Note LastModifiedBy Organization Detail LastModifiedTime 03/20/20 24 03/21/2024 ALBUM IN/CR EATIN INE RATIO ,URIN E creatinine, urine 60.1 mg/dL notest ab. Not Available [facility] ([facility]) [address] [place], [address], 03/21/2024 10:13:18 03/20/20 24 03/21/2024 ALBUM IN/CR EATIN INE RATIO ,URIN E albumin, urine <3.0 ug/mL notest ab. Not Available [facility] ([facility]) [address] [place], [address], 03/21/2024 10:13:18 03/20/20 24 03/21/2024 ALBUM IN/CR EATIN INE RATIO ,URIN E alb/creat ratio <5 Brittney l: 0 - 29 Moder ately incre ased: 30 - 300 Sever ramiro incre ased: >300 Not Available [facility] ([facility]) [address] [place], [address], 03/21/2024 10:13:18 03/20/20 24 03/21/2024 COMP. METAB OLIC PANEL (14) glucose 137 mg/dL 70-99 above high normal Not Available [facility] ([facility]) [address] [place], [address], 03/21/2024 10:13:18 03/20/20 24 03/21/2024 COMP. METAB OLIC PANEL (14) BUN 19 mg/dL 8-27 Not Available [facility] ([facility]) [address] [place], [address], 03/21/2024 10:13:18 03/20/20 24 03/21/2024 COMP. METAB OLIC PANEL (14) creatinine 0.84 mg/dL 0.57-1 .00 Not Available [facility] ([facility]) [address] [facility], [place], [address], 03/21/2024 10:13:18 03/20/20 24 03/21/2024 COMP. METAB OLIC PANEL (14) eGFR 75 mL/mi n/1.7 3 >59 Not Available [facility] ([facility]) [address] [place], [address], 03/21/2024 10:13:18 03/20/20 24 03/21/2024 COMP. METAB OLIC PANEL (14) BUN/creatini ne ratio 23 12-28 Not Available [facility] ([facility]) [address] [place], [address], 03/21/2024 10:13:18 03/20/20 24 03/21/2024 COMP. METAB OLIC PANEL (14) sodium 139 mmol/ L 134-14 4 Not Available [facility] ([facility]) [address] [place], [address], 03/21/2024 10:13:18 03/20/20 24 03/21/2024 COMP. METAB OLIC PANEL (14) potassium 3.7 mmol/ L 3.5-5. 2 Not Available [facility] ([facility]) [address] [place], [address], 03/21/2024 10:13:18 03/20/20 24 03/21/2024 COMP. METAB OLIC PANEL (14) chloride 98 mmol/ L 96-106 Not Available [facility] ([facility]) [address] [place], [address], 03/21/2024 10:13:18 03/20/20 24 03/21/2024 COMP. METAB OLIC PANEL (14) carbon dioxide, total 26 mmol/ L 20-29 Not Available [facility] ([facility]) [address] [place], [address], 03/21/2024 10:13:18 03/20/20 24 03/21/2024 COMP. METAB OLIC PANEL (14) calcium 9.4 mg/dL 8.7-10 .3 Not Available [facility] ([facility]) [address], [place], [address], 03/21/2024 10:13:18 03/20/20 24 03/21/2024 COMP. METAB OLIC PANEL (14) protein, total 6.9 g/dL 6.0-8. 5 Not Available [facility] ([facility]) [address] [place], [address], 03/21/2024 10:13:18 03/20/20 24 03/21/2024 COMP. METAB OLIC PANEL (14) albumin 4.3 g/dL 3.9-4. 9 Not Available [facility] ([facility]) [address] [facility], [place], [address], 03/21/2024 10:13:18 03/20/20 24 03/21/2024 COMP. METAB OLIC PANEL (14) globulin, total 2.6 g/dL 1.5-4. 5 Not Available [facility] ([facility]) [address] [facility] [place], [address], 03/21/2024 10:13:18 03/20/20 24 03/21/2024 COMP. METAB OLIC PANEL (14) A/G ratio 1.7 1.2-2. 2 Not Available [facility] ([facility]) [address] [facility] [place], [address], 03/21/2024 10:13:18 03/20/20 24 03/21/2024 COMP. METAB OLIC PANEL (14) bilirubin, total 0.5 mg/dL 0.0-1. 2 Not Available [facility] ([place] [facility]) [address] [facility] [place], [address], 03/21/2024 10:13:18 03/20/20 24 03/21/2024 COMP. METAB OLIC PANEL (14) alkaline phosphatase 78 IU/L 44-121 Not Available [facility] ([facility]) [address] [facility], [place], [address], 03/21/2024 10:13:18 03/20/20 24 03/21/2024 COMP. METAB OLIC PANEL (14) AST (SGOT) 13 IU/L 0-40 Not Available [facility] ([facility]) [address] [facility], [place], [address], 03/21/2024 10:13:18 03/20/20 24 03/21/2024 COMP. METAB OLIC PANEL (14) ALT (SGPT) 12 IU/L 0-32 Not Available [facility] ([facility]) [address] [facility], [place], [address], 03/21/2024 10:13:18 08/07/20 24 08/07/2024 Hemog lobin A1c/H emogl obin. total in Blood hemoglobin A1C/hemoglob in.total in blood 7.1 % low: 4%high : 6% abnormal HGB-A 1C 7.1 (A) 4 - 6 % Not Available Not Available 02/02/2025 11:52:26 08/07/20 24 08/07/2024 Hemog lobin A1c/H emogl obin. total in Blood interpretati on and review of laboratory results Abnorm al Not Available Not Available 11:52:26 11/06/20 24 11/06/2024 Hemog lobin A1c/H emogl obin. total in Blood hemoglobin A1C/hemoglob in.total in blood 6.7 % low: 4%high : 6% abnormal HGB-A 1C 6.7 (A) 4 - 6 % Not Available Not Available 01/08/2025 10:09:57 11/06/20 24 11/06/2024 Hemog lobin A1c/H emogl obin. total in Blood interpretati on and review of laboratory results Abnorm al Not Available Not Available 10:09:57 02/03/2002/04/2025 LIPID PANEL cholesterol, total 177 mg/dL 100-19 9 Not Available [facility] ([facility]) [address] [place], [address], 02/04/2025 06:44:46 02/03/20 25 02/04/2025 LIPID PANEL triglyceride s 94 mg/dL 0-149 Not Available [facility] ([facility]) [address] [place], [address], 02/04/2025 06:44:46 02/03/20 25 02/04/2025 LIPID PANEL HDL cholesterol 67 mg/dL >39 Not Available [facility] ([facility]) [address] [place], [address], 02/04/2025 06:44:46 02/03/20 25 02/04/2025 LIPID PANEL VLDL cholesterol jd 17 mg/dL 5-40 Not Available [facility] ([facility]) [address] [place], [address], 02/04/2025 06:44:46 02/03/20 25 02/04/2025 LIPID PANEL LDL chol calc ([facility]) 93 mg/dL 0-99 Not Available [facility] ([facility]) [address] [place], [address], 02/04/2025 06:44:46 02/03/20 25 02/04/2025 COMP. METAB OLIC PANEL (14) glucose 156 mg/dL 70-99 above high normal Not Available [facility] ([facility]) [address] [place], [address], 02/04/2025 06:44:48 02/03/20 25 02/04/2025 COMP. METAB OLIC PANEL (14) BUN 17 mg/dL 8-27 Not Available [facility] ([facility]) [address] [place], [address], 02/04/2025 06:44:48 02/03/20 25 02/04/2025 COMP. METAB OLIC PANEL (14) creatinine 0.89 mg/dL 0.57-1 .00 Not Available [facility] ([facility]) [address] [place], [address], 02/04/2025 06:44:48 02/03/20 25 02/04/2025 COMP. METAB OLIC PANEL (14) eGFR 70 mL/mi n/1.7 3 >59 Not Available [facility] ([facility]) [address] [place], [address], 02/04/2025 06:44:48 02/03/20 25 02/04/2025 COMP. METAB OLIC PANEL (14) BUN/creatini ne ratio 19 12-28 Not Available [facility] ([facility]) [address] [facility] [place], [address], 02/04/2025 06:44:48 02/03/2002/04/2025 COMP. METAB OLIC PANEL (14) sodium 137 mmol/ L 134-14 4 Not Available [facility] ([facility]) [address] [facility] [place], [address], 02/04/2025 06:44:48 02/03/20 25 02/04/2025 COMP. METAB OLIC PANEL (14) potassium 3.4 mmol/ L 3.5-5. 2 below low normal Not Available [facility] ([facility]) [address] [place], [address], 02/04/2025 06:44:48 02/03/20 25 02/04/2025 COMP. METAB OLIC PANEL (14) chloride 95 mmol/ L 96-106 below low normal Not Available [facility] ([facility]) [address] [facility] [place], [address], 02/04/2025 06:44:48 02/03/20 25 02/04/2025 COMP. METAB OLIC PANEL (14) carbon dioxide, total 24 mmol/ L 20 Not Available [facility] ([facility]) [address] [place], [address], 02/04/2025 06:44:48 02/03/20 25 02/04/2025 COMP. METAB OLIC PANEL (14) calcium 9.7 mg/dL 8.7-10 .3 Not Available [facility] ([facility]) [address] [place], [address], 02/04/2025 06:44:48 02/03/2002/04/2025 COMP. METAB OLIC PANEL (14) protein, total 7.0 g/dL 6.0-8. 5 Not Available [facility] ([facility]) [address] [place], [address], 02/04/2025 06:44:48 02/03/20 25 02/04/2025 COMP. METAB OLIC PANEL (14) albumin 4.3 g/dL 3.9-4. 9 Not Available [facility] ([facility]) [address] [place], [address], 02/04/2025 06:44:48 02/03/20 25 02/04/2025 COMP. METAB OLIC PANEL (14) globulin, total 2.7 g/dL 1.5-4. 5 Not Available [facility] ([facility]) [address] [place], [address], 02/04/2025 06:44:48 02/03/2002/04/2025 COMP. METAB OLIC PANEL (14) bilirubin, total 0.5 mg/dL 0.0-1. 2 Not Available [facility] ([facility]) [address] [place], [address], 02/04/2025 06:44:48 02/03/20 25 02/04/2025 COMP. METAB OLIC PANEL (14) alkaline phosphatase 81 IU/L 44-121 Not Available [facility] ([facility]) [address] [place], [address], 02/04/2025 06:44:48 02/03/20 25 02/04/2025 COMP. METAB OLIC PANEL (14) AST (SGOT) 16 IU/L 0-40 Not Available [facility] ([facility]) [address] [place] [address], [address], 02/04/2025 06:44:48 02/03/20 25 02/04/2025 COMP. METAB OLIC PANEL (14) ALT (SGPT) 10 IU/L 0-32 Not Available [facility] ([facility]) [address] [place], [address], 02/04/2025 06:44:48 02/06/20 25 02/05/2025 Hemog lobin A1c/H emogl obin. total in Blood hemoglobin A1C/hemoglob in.total in blood 7.2 % low: 4%high : 6% abnormal HGB-A 1C 7.2 (A) 4 - 6 % Not Available Not Available 02/06/2025 14:34:59 02/06/20 25 02/05/2025 Hemog lobin A1c/H emogl obin. total in Blood interpretati on and review of laboratory results Abnorm al Not Available Not Available 14:34:59 02/17/2002/16/2025 COLOG UARD cologuard result reportable NEGATI VE negati ve normal NEGAT RUI TEST RESUL T. A negat rui Colog uard resul t indic ates a low likel ihood that a color ectal cance r (CRC) or advan natividad adeno ma (hamzah omato us polyp s with more advan natividad pre-m align ant featu res) is prese nt. The chanc e that a perso n with a negat rui Colog uard test has a color ectal cance r is less than 1 in 1500 (nega tive predi ctive value >99.9 %) or has an advan natividad adeno ma is less than 5.3% (nega tive predi ctive value 94.7% ). These data are based on a prosp ectiv e cross -sect ional study of 10,00 0 indiv idual s at [facility] risk for color ectal cance r who were scree germain with both Colog uard and colon oscop y. (Douglas Gonzalez et al, N Engl J Med 2014; 370(1 4):12 86-12 97) The brittney l value (refe rence range ) for this assay is negat rui. COLOG UARD RE-SC REENI NG RECOM MENDA TION: Perio dic color ectal cance r scree fred is an impor tant part of preve ntive healt hcare for asymp tomat ic indiv idual s at [place] [facility] risk for color ectal cance r. Follo wing a negat rui Colog uard resul t, the Ameri can Cance r Socie ty and U.S. Multi -Soci ety Task Force scree fred guide lines recom mend a Colog uard re-sc reeni ng inter dominga of 3 years . Refer ences : Ameri can Cance r Socie ty Guide line for Color ectal Cance r Scree fred: https ://fortino w.can cer.o rg/ca ncer/ colon -rect al-ca ncer/ detec tion- diagn osis- stagi ng/ac s-rec ommen datio ns.ht ml.; Bc MESA, Ochoa toth CR, Marleen dubois JK, Color ectal Cance r Scree fred: Recom menda tions for Physi cians and Patie nts from the U.S. Multi -Soci ety Task Force on Color ectal Cance r Scree fred , Perry tang rolog y 2017; 112:1 016-1 030. TEST DESCR IPTIO N: Tab site algor ithmi c karthik sis of stool DNA-b iomar kers with hemog lobin immun oassa y. Quant itati ve value s of indiv idual bioma rkers are not repor table and are not assoc iated with indiv idual bioma rker resul t refer ence range s. Colog uard is inten ded for color ectal cance r scree fred of adult s of eithe r sex, 45 years or older , who are at [facility] for color ectal cance r (CRC) . Colog uard has been appro mariia for use by the U.S. FDA. The perfo rmanc e of Colog uard was estab lishe d in a cross secti onal study of [facility] adult s aged 50-84 . Colog uard perfo rmanc e in patie nts ages 45 to 49 years was estim ated by sub-g roup karthik sis of near- age group s. Colon oscop ies perfo rmed for a posit rui resul t may find as the most clini augustine signi fican t lesio n: color ectal cance r [4.0% ], advan natividad adeno ma (incl uding sessi le gurpreet tika polyp s great er than or equal to 1cm diame ter) [20%] or non- advan natividad adeno ma [31%] ; or no color ectal neopl evelio [45%] . These estim ates are deriv ed from a prosp ectiv e cross -sect ional scree fred study of 10,00 0 indiv idual s at [facility] risk for color ectal cance r who were scree germain with both Colog uard and colon oscop y. (Douglas Gonzalez et al, N Engl J Med 2014; 370(1 4):12 86-12 97.) Colog uard may produ ce a false negat rui or false posit rui resul t (no color ectal cance r or preca ncero us polyp prese nt at colon oscop y follo w up). A negat rui Colog uard test resul t does not guara ntee the absen ce of CRC or advan natividad adeno ma (pre- cance r). The curre nt Colog uard scree fred inter dominga is every 3 years . (Amer ican Cance r Socie ty and U.S. Multi -Soci ety Task Force ). Colog uard perfo rmanc e data in a 10,00 0 patie nt pivot al study using colon oscop y as the refer ence metho d can be acces sed at the follo wing locat ion: www.e xactl abs.c om/re suljenny . Addit ional descr iptio n of the Colog uard test proce ss, warni ngs and preca ution s can be found at www.c keithogu liang.c om. Not Available [facility] (Cologuard Orders Only) [address], [place], [address], 02/20/2025 17:49:54 02/28/20 25 02/28/2025 POTAS SIUM potassium 3.6 mmol/ L 3.5-5. 2 Not Available [facility] ([facility]) [address] [facility], [place], [address], 02/28/2025 06:48:07 05/08/20 25 05/08/2025 Hemog lobin A1c/H emogl obin. total in Blood hemoglobin A1C/hemoglob in.total in blood 6.7 % low: 4%high : 6% abnormal Not Available Not Available 07/13/2025 11:29:42 05/08/20 25 05/08/2025 Hemog lobin A1c/H emogl obin. total in Blood interpretati on and review of laboratory results Abnorm al Not Available Not Available 11:29:42 03/20/20 24 03/17/2024 MAMMO , scree fred, digit al, bilat eral No observ ation record ed. etodaroma [facility] [address] [place], [address], 03/24/2024 09:53:39 06/27/20 24 06/27/2024 DEXA, axial skele ton + verte bral fract ure asses sment No observ ation record ed. dshehata [facility] [address] [place], [address], 06/28/2024 15:12:45 06/27/20 24 06/27/2024 imagi ng inter preta tion No observ ation record ed. etodaroma [facility] (Radiology) [address] [place], [address], 07/07/2024 16:46:21 06/06/20 25 06/05/2025 MAMMO , scree fred, digit al, bilat eral No observ ation record ed. smarshallma [facility] (Radiology) [address] [place], [address], 06/08/2025 16:10:32 Result Notes None recorded. Problems Name Problem SNOMED Code Status Onset Date Resolution Date Notes Provider Name and Address Organization Details Recorded Time Type 2 diabetes mellitus 28231133 Active 2016 Ryan Coats MD Attn: Accounting, [address] [place], [address], [facility] 5 11:24:37 Essential hypertens ion 54683536 Active 2016 Ryan Coats MD Attn: Accounting, [address] [place], [address], [facility] 5 11:24:24 History of varicose veins 499573732 Active 2016 Not Available [facility] 3 07:33:44 Pure hyperchol esterolem ia 089045711 Active 2017 Enrrique Montalvo MD Attn: Accounting, [address] [place], [address], [facility] 5 11:50:48 Vitamin D deficienc y 45720449 Completed 201701/18/2020 Trish Og MD Attn: Accounting, [address] [place], [address], [facility] 0 12:08:53 Generaliz ed anxiety disorder 01681496 Completed 201709/13/2018 Trish Og MD Attn: Accounting, [address] [facility], [place], [address], [place] [facility] 8 16:51:23 Obesity 979730211 Completed 201709/13/2018 Trish Og MD Attn: Accounting, [address] [facility], [place], [address], [place] [facility] 2 10:32:09 Thoracic back pain 311867401 Completed 201701/18/2020 Trish Og MD Attn: Accounting, [address] [facility], [place], [address], [place] [facility] 0 10:28:43 Body mass index 30+ - obesity 426361881 Active 2017 Not Available [facility] 3 07:33:44 Posterior rhinorrhe a 97539563 Active 2018 Not Available [facility] 3 07:33:44 Multinodu lar goiter 635641608 Active 2020 Not Available [facility] 3 07:33:44 Overactiv e urinary bladder 868465019 Active 2021 Not Available [facility] 3 07:33:44 Obesity 475127373 Active 2021 Not Available [facility] 3 07:33:44 Occult blood detected in feces 31000258 Active 2021 Not Available [facility] 3 07:33:44 Varicose veins of lower extremity 21986318 Active 2021 Not Available [facility] 3 07:33:44 Postmenop ausal state 74617658 Active 2022 Not Available [facility] 3 07:33:44 Hypokalem ia 40507904 Active 2024 Ryan Coats MD Attn: Accounting, [address] [facility], [place], [address], [place] [facility] 5 09:54:27 Problem Notes None recorded. Procedures Surgical History Date Name Laterality Status Provider Name and Address Organization Details Recorded Time Tubal Ligation completed SAMIRA Sapp [facility] 09/27/2017 11:25:56 Breast Surgery completed SAMIRA Sapp [facility] 09/27/2017 11:26:03 Imaging Results None recorded. Procedure Notes None recorded. Medical Equipment None Reported. Allergies Allergen ID Allergen Name Allergen Category Reaction Reaction Severity Criticality Documentation Date Start Date Code Code System Note Provider Name and Address Organization Details Recorded Time 649005 No known allergy (situatio n) Not available Not available Not available Not available 06/05/2021 24994 [id number] SNSAMIRA Duff [facility] 5 10:34:50 No known drug allergies Medications Name Sig Start Date Stop Date Status Note LastModified by Organization Details LastModified Time Prescript ion - Prior Authoriza tion Request 03/07 completed Not Available Not Available Not Available OneTouch Ultra Blue Test Strips USE TO TEST BLOOD SUGAR ONCE DAILY 2023 active Not Available Not Available Not Avai lable amoxicill in 500 mg capsule TAKE 1 CAPSULE BY MOUTH THREE TIMES DAILY FOR 5 DAYS 08/16 completed Not Available Not Available Not Available pioglitaz one 15 mg tablet 10/06 completed Not Available Not Available Not Available cetirizin e 10 mg tablet TAKE 1 TABLET BY MOUTH EVERY DAY NEEDED *PATIENT NEEDS APPOINTM ENT FOR FURTHER REFILLS* active Not Available Not Available No t Available atorvasta tin 10 mg tablet Take 1 tablet every day by oral route. 03/20 completed Not Available Not Available Not Available oxybutyni n chloride ER 10 mg tablet,ex tended release 24 hr TAKE 1 TABLET BY MOUTH EVERY DAY active Not Available Not Available No t Available azithromy viri 250 mg tablet TK 2 TS PO ON DAY 1, THEN TK 1 T PO D FOR 4 DAYS 02/26 completed Not Available Not Available Not Available glyburide 5 mg tablet TAKE 1 TABLET BY MOUTH TWICE DAILY 04/18 completed Not Available Not Available Not Available tizanidin e 4 mg tablet Take 1 tablet every day by oral route as needed. 09/13 completed Not Available Not Available Not Available fluconazo le 150 mg tablet 10/06 completed Not Available Not Available Not Available hydrocort isone 1 % topical ointment 09/27 completed Not Available Not Available Not Available glipizide 10 mg tablet TAKE 1 TABLET BY MOUTH TWICE DAILY 11/03 completed per endo taking half in am and other half in pm ie 5mg BID as of 08/17/23 Not Available Not Available Not Available permethri n 5 % topical cream APPLY TOPICALL Y UTD. MAY USE A SECOND TREATMEN T 14 DAYS AFTER FIRST IF LIVE LICE REMAIN 10/08 completed Not Available Not Available Not Available clindamyc in HCl 150 mg capsule 10/08 completed Not Available Not Available Not Available potassium chloride ER 10 mEq tablet,ex tended release Take 1 tablet every day by oral route after meals. 01/14 completed Not Available Not Available Not Available sulfameth oxazole 800 mg-trimet hoprim 160 mg tablet TK 1 T PO Q 12 H FOR 7 DAYS 10/08 completed Not Available Not Available Not Available lovastati n 10 mg tablet TAKE 1 TABLET BY MOUTH EVERY DAY AT DINNER active Not Available Not Available No t Available tramadol 50 mg tablet 03/07 completed Not Available Not Available Not Available triamcino lone acetonide 0.1 % topical cream APPLY TOPICALL Y TO THE AFFECTED AREA TWICE DAILY 10/08 completed Not Available Not Available Not Available OneTouch Ultra Test strips USE TO TEST ONCE DAILY active Not Available Not Available No t Available benzonata te 100 mg capsule TAKE 1 CAPSULE BY MOUTH THREE TIMES DAILY FOR 5 DAYS 06/09 completed Not Available Not Available Not Available doxycycli ne monohydra te 100 mg capsule TAKE 1 CAPSULE BY MOUTH TWICE DAILY FOR 7 DAYS active Not Available Not Available No t Available erythromy viri 5 mg/gram (0.5 %) eye ointment APPLY 1 CM RIBBON INTO THE LOWER CONJUNCT IVAL SAC(S) IN THE AFFECTED EYE(S) BY OPHTHALM IC ROUTE 3 TIMES PER DAY 10/06 completed Not Available Not Available Not Available lisinopri l 10 mg tablet TAKE 1 TABLET BY MOUTH DAILY active Not Available Not Available No t Available Banophen 25 mg capsule 02/03 completed Not Available Not Available Not Available hydroxyzi ne HCl 25 mg tablet TK 1 T PO BID PRN 03/15 /2022 completed Not Available Not Available Not Available ampicilli n 250 mg capsule 09/27 completed Not Available Not Available Not Available hydrochlo rothiazid e 25 mg tablet TAKE 1 TABLET BY MOUTH EVERY DAY IN THE MORNING active Not Available Not Available No t Available furosemid e 20 mg tablet Take 1 tablet every day by oral route in the morning. 01/29 completed Not Available Not Available Not Available ergocalci ferol (vitamin D2) 1,250 mcg (50,000 unit) capsule TAKE 1 CAPSULE BY MOUTH EVERY WEEK 03/07 completed Not Available Not Available Not Available levofloxa viir 500 mg tablet 05/13 completed Not Available Not Available Not Available methylpre dnisolone 4 mg tablets in a dose pack TAKE DIRECTED WITH MEAL 02/26 completed Not Available Not Available Not Available pioglitaz one 30 mg tablet 11/09 completed Due to weight gain/leg swelling Not Available Not Available Not Available oxybutyni n chloride 5 mg tablet TAKE 1 TABLET BY MOUTH TWICE DAILY 05/13 completed Not Available Not Available Not Available fluoxetin e 20 mg capsule Take 1 capsule every day by oral route at dinner. 03/07 completed Not Available Not Available Not Available fluticaso ne propionat e 50 mcg/actua tion nasal spray,porfirio pension 12/21 completed Not Available Not Available Not Available metformin ER 500 mg tablet,ex tended release 24 hr TAKE 2 TABLETS BY MOUTH TWICE DAILY 08/17 completed Not Available Not Available Not Available loratadin e 10 mg tablet TAKE 1 TABLET BY MOUTH EVERY DAY NEEDED 04/28 completed Not Available Not Available Not Available glipizide 5 mg tablet TAKE 1 TABLET BY MOUTH TWICE DAILY active Not Available Not Available No t Available Ventolin HFA 90 mcg/actua tion aerosol inhaler INHALE 2 PUFFS BY MOUTH EVERY 6 HOURS NEEDED FOR WHEEZING OR COUGH active Not Available Not Available No t Available Vitamin D3 25 mcg (1,000 unit) tablet Take 1 tablet every day by oral route. 01/29 completed Not Available Not Available Not Available Lancets,U ltra Thin active Not Available Not Available No t Available Januvia 100 mg tablet TAKE 1 TABLET BY MOUTH DAILY 11/23 completed per Endo d/c Not Available Not Available Not Available blood glucose test strips with disposabl e meter kit use once daily DX code E11.9 active Not Available Not Available No t Available aloglipti n 25 mg tablet TAKE 1 TABLET BY MOUTH EVERY DAY 04/18 completed Not Available Not Available Not Available aloglipti n 12.5 mg tablet TAKE 1 TABLET BY MOUTH EVERY DAY 12/21 completed Not Available Not Available Not Available Farxiga 5 mg tablet Take 1 tablet every day by oral route in the morning. 03/21 completed Not Available Not Available Not Available Jardiance 25 mg tablet TAKE 1 TABLET BY MOUTH DAILY 09/23 completed Not Available Not Available Not Available Trulicity 1.5 mg/0.5 mL subcutane ous pen injector Inject 1.5 mg every week by subcutan eous route. 04/06 completed Endo as of 07/07/22 Not Available Not Available Not Available Ozempic 0.25 mg or 0.5 mg (2 mg/1.5 mL) subcutane ous pen injector Inject by subcutan eous route. 06/[address] Porter Not Available Not Available Not Available Steglatro 5 mg tablet TAKE 1 TABLET BY MOUTH EVERY DAY IN THE MORNING 10/06 completed Not Available Not Available Not Available OneTouch Ultra2 Meter USE DIRECTED active Not Available Not Available No t Available OneTouch Delica Plus Lancet 33 gauge USE DAILY active Not Available Not Available No t Available Ozempic 1 mg/dose (4 mg/3 mL) subcutane ous pen injector INJECT 1 MG UNDER THE SKIN ONCE A WEEK active Not Available Not Available No t Available Rashaun MONTOYAID-19 Home Test kit Check as directed 08/16 completed Not Available Not Available Not Available Ozempic 2 mg/dose (8 mg/3 mL) subcutane ous pen injector INJECT 2 MG UNDER THE SKIN ONE DAY A WEEK active injects 1 mg Not Available Not Available Not Available Vitals Date Recorded Body height Body mass index (BMI) Body weight Heart rate Respiratory rate Body temperature Systolic And Diastolic Provider Name and Address Organization Details Last Updated DateTime 4 170.18 cm 27.3 kg/m2 78471.5 1 g 65 /min 14 /min 96.9 [degF] 117/65 mm[Hg] Enedina Kinerd, [place] [facility] 4 11:07:52 Date Recorded Body height Body mass index (BMI) Body weight Body temperature Heart rate Respiratory rate Systolic And Diastolic Provider Name and Address Organization Details Last Updated DateTime 5 170.18 cm 30.3 kg/m2 03156.0 8 g 98.3 [degF] 84 /min 18 /min 128/80 mm[Hg] Tana Mercado [place] [facility] 5 11:12:29 Date Recorded Body height Body temperature Heart rate Oxygen saturation Oxygen saturation in Arterial blood by Pulse oximetry Respiratory rate Body mass index (BMI) Body weight Systolic And Diastolic Provider Name and Address Organization Details Last Updated DateTime 4 170.18 cm 97.3 [degF] 65 /min 99 % 99 % 16 /min 29 kg/m2 90421.2 9 g 137/77 mm[Hg] Jeana Cunningham [place] [facility] 4 11:33:31 Date Recorded Body height Body mass index (BMI) Body weight Respiratory rate Body temperature Oxygen saturation Oxygen saturation in Arterial blood by Pulse oximetry Heart rate Systolic And Diastolic Provider Name and Address Organization Details Last Updated DateTime 5 170.18 cm 29.6 kg/m2 73614.1 3 g 20 /min 98.2 [degF] 98 % 98 % 80 /min 112/72 mm[Hg] SAMIRA Sinha [facility] 5 10:58:06 Date Recorded Body height Body mass index (BMI) Body weight Heart rate Body temperature Respiratory rate Oxygen saturation Oxygen saturation in Arterial blood by Pulse oximetry Systolic And Diastolic Provider Name and Address Organization Details Last Updated DateTime 5 170.18 cm 29 kg/m2 40093.5 9 g 77 /min 98 [degF] 16 /min 99 % 99 % 108/73 mm[Hg] Jeana Cunningham [place] [facility] 5 11:57:17 Social History Question Answer Notes LastModified by Organizat ion Details LastModified Time Tobacco Smoking Status Never Smoker SAMIRA Sapp null, [facility] 06/17/2018 11:29:06 Do You Have An Advance Directive? No Information not available 07/07/2021 Are You Blind Or Do You Have Difficulty Seeing? No Information not available 01/29/2021 What Is Your Level Of Caffeine Consumption? Occasional Information not available 02/26/2021 In The 14 Days Before Symptom Onset, Have You Had Close Contact With A Laboratory-confir med COVID-19 While That Case Was Ill? No Information not available 07/07/2021 In The 14 Days Before Symptom Onset, Have You Had Close Contact With A Person Who Is Under Investigation For COVID-19 While That Person Was Ill? No Information not available 07/07/2021 Have You Been To An Area Known To Be High Risk For COVID-19? No Information not available 07/07/2021 Are You Deaf Or Do You Have Serious Difficulty Hearing? No Information not available 01/29/2021 What Type Of Diet Are You Following? REGULAR Information not available 01/29/2021 Are There Any Guns Present In Your Home? No Information not available 01/29/2021 In The Past 7 Days, How Many Days Did You Exercise? 4 Information not available 05/07/2025 On The Days When You Exercised, How Long Did You Exercise Each Day (in Minutes)? 30 Information not available 05/07/2025 How Intense Was Your Typical Exercise? Light (stretching Or Slow Walking) Information not available 05/07/2025 In The Past 7 Days, How Much Pain Have You [place]? None Information not available 05/07/2025 In General, Would You Say You Health Is: Good Information not available 05/07/2025 Each Night, How Many Hours Of Sleep Do You Get? 8 Information no t available 05/07/2025 In The Past 7 Days, How Often Have You Madison Sleepy In The Daytime? Rarely Information not available 05/07/2025 On They Days When You Drank Alcohol, How Often Did You Have 4 Or More Drinks At A Time? Never Information no t available 05/07/2025 # Alcohol Drinks Per Week 0 Information not available 05/07/2025 What Was The Date Of Your Most Recent Tobacco Screening? 08/14/2025 Information not available 08/14/2025 Do You Use Your Seat Belt Or Car Seat Routinely? Yes Information not available 07/07/2021 Do You Have Smoke And Carbon Monoxide Detectors In Your Home? Yes Information not available 01/29/2021 How Much Tobacco Do You Smoke? No Information not available 06/19/2020 Do You Use Sunscreen Routinely? No Information not available 01/29/2021 Has Tobacco Cessation Counseling Been Provided? No Information not available 08/14/2025 On What Date Was Tobacco Cessation Counseling Provided? 05/07/2025 Information not available 05/07/2025 Sex: Female Functional Status Question Answer Note LastModified by Organizat ion Details LastModified Time Do you use any illicit or recreational drugs? No Information not available 06/09/2022 Do you or have you ever used any other forms of tobacco or nicotine? No Information not available 04/28/2022 What is your level of alcohol consumption? None Information not available 03/20/2024 Do you or have you ever used smokeless tobacco? Never used smokeless tobacco Information not available 06/19/2020 Are you currently employed? Yes Information not available 05/07/2025 Are you able to care for yourself independently? Yes Information not available 01/29/2021 What is your occupation? [employer] 05/07/25 Information not available 05/07/2025 Do you or have you ever used e-cigarettes or vape? Never used electronic cigarettes Information not available 06/19/2020 Mental Status Question Answer Note LastModified by Organization D etails LastModified Time Do you feel stressed (tense, restless, nervous, or anxious, or unable to sleep at night)? [id number] Information not available 07/07/2021 Family History Relationship Description Onset Age of this Age Resolved Age Notes LastModified by Organization Details LastModified Time Mother Dementia [email or web address] Not availa ble 09/27/2017 11:24:43 Mother Hypertensive disorder [email or web address] Not available 04/2017 11:25:03 Brother Hypertensive disorder [email or web address] Not available 04/2017 11:25:03 Notes:05/07/25 Medical History Condition Response Coronary Artery Disease N Other N Atrial Fibrillation N High Blood Pressure Y Kidney or Bladder Problems N Thyroid Problems N GI Problems N Depression N COPD N Blood Clots N Have you had a mammogram in the last yea r? N Skin Problems N Anemia N Heart Attack ([place]) N Anxiety Disorder N Diabetes Y Muscle, Joint, or Bone Problems N Seizures/Epilepsy N Have you had a colonoscopy in the last 1 0 years? N Acid Reflux (GERD) N Cancer N Stroke N Asthma N Allergies N Have you had a PSA blood test in the las t year? N High Cholesterol N Hepatitis N Liver Disease N Headaches N Heart Failure N Osteoporosis N Gynecological History Statement/Question Response Current Control Method Hysterectom y LMP Unknown Obstetrics History GPAL:G 2 P 0 0 0 2 Type Value Living 2 Total 2 Past Encounters Encounter ID Performer Location Encounter Start Date Encounter Closed Date Diagnosis/Indication Diagnosis SNOMED-CT Code Diagnosis ICD10 Code Diagnosis IMO Codes Diagnosis Note [id number] MD Franko Shipman ([facility]) [address] [place] [address] 09/27/2017 10:47:56 09/29/2017 11:38:30 Type 2 diabetes mellitus 45874062 E11.9 Home BS fairly controlled .Ct with diet control and exercise, medication as prescribed F/u with eye and foot providersC heck BS at least once/day at home before meal/bedti me Essential hypertension 08897946 I10 Controlled . Ct same with low salt diet Overweight 228949867 E66 .3 Recommend to loose weight with diet control and exercise. Screening for malignant neoplasm of colon 210544488 Z12.11 Refuses colonoscop y Health liliam ntenance alteration 70539263 Z78.9 Baseline labs History of varicose veins 752410892 Z86.79 Had surgery before. Using tika hose while on her feet. [id number] MD Franko Sanders [facility] ([facility]) [address] [place] [address] 10/08/2017 10:38:42 10/20/2017 08:43:22 Gynecologic examination 97628419 Z01.419 Safe sex counseling was done. Patient was advised against the use of alcohol, tobacco and drugs. BSE was reviewed and recommende d. Will obtain last mammogram record. Fecal occult blood testing was ordered. Will do DEXA scan at 65. Bladder mu scle dysfunction - overactive 081313697 N32.81 Will send rx fo oxybutynin to the pharmacy. [id number] MD Franko Shipman ([facility]) [address] [place] [address] 11/03/2017 09:49:32 11/23/2017 11:13:58 Acute upper respiratory infection 85243428 J06.9 Hydrate well. Use humidifier Take medication as prescribed , If getting worse come in / go to [facility] to ct with OTC robitussin you bought before. [id number] MD Franko Shipman ([facility]) [address] [place] [address] 12/07/2017 10:45:01 12/07/2017 14:30:20 Type 2 diabetes mellitus 82805198 E11.9 Home BS fairly controlled .Ct with diet control and exercise, medication as prescribed F/u with eye and foot providersC heck BS at least once/day at home before meal/bedti me Addendum 12/07/17A1C 10.2Does not want injection. Increase glyburide to 5 mm GID and add januvia 100mg daily.Does not want to be on metformin- causes diarrhoea. Call back with BS readings in 2 wks.diet control emphasized .Refer to [facility] . Essential hypertension 90399148 I10 Controlled [address] Ct same with low salt diet Varicose v eins of lower extremity 29377536 I83.893 Had stripping 10-15 yrg ago, bothering lately.Ct with support hose. refer Generalize d anxiety disorder 13761049 F41.1 Empiricall y try fluoxetine 20mg daily, aware if weird dream/suic idal thoughts to stop and call the office. Vitamin D deficiency 347 06902 E55.9 weekly Vit D for 8 wks sent. Pure hypercholesterolemia 457621806 E78.00 LDL 110. Started on lovastatin and low cholestrol diet emphasized . [id number] MD Franko Shipman [facility] ([facility]) [address] [place] [address] 03/07/2018 10:32:17 03/07/2018 13:55:47 Type 2 diabetes mellitus 95410620 E11.9 Home BS fairly controlled .Ct with diet control and exercise, medication as prescribed F/u with eye and foot providersC heck BS at least once/day at home before meal/bedti me Addendum 12/07/17A1C 10.2Does not want injection. Increase glyburide to 5 mm GID and add januvia 100mg daily.Does not want to be on metformin- causes diarrhoea. Call back with BS readings in 2 wks.diet control emphasized .Refer to [employer] . Addendum 03/07/18Hom e BS lot better. Ct same with diet control and exercise. Essential hypertension 68083852 I10 Controlled . Ct same with low salt diet Generalize d anxiety disorder 92541289 F41.1 Empiricall y try fluoxetine 20mg daily, aware if weird dream/suic idal thoughts to stop and call the office. Addendum 03/07/18ym ptomatical y lot better, not started the medication . Pure hypercholesterolemia 852392134 E78.00 LDL 110. Started on lovastatin and low cholestrol diet emphasized . History of varicose veins 488474846 Z86.79 Had surgery before. Using tika hose while on her feet. Vitamin D deficiency 347 80652 E55.9 check level Obesity 118372128 E66.9 Recommend to loose weight with diet control and exercise. Screening mammography 24 371149 Z12.31 [id number] MD Franko Shipman 14 IM [address] [facility] [place] [address] 04/04/2018 10:39:22 04/04/2018 12:19:40 Acute upper respiratory infection 61560033 J06.9 Hydrate well. Use humidifier Take medication as prescribed , If getting worse come in / go to [facility] to ct with OTC robitussin you bought before. [id number] MD Franko Shipman 14 IM [address] [facility] [place] [address] 05/13/2018 10:35:58 05/13/2018 17:33:56 Type 2 diabetes mellitus 46740042 E11.9 Home BS fairly controlled .Ct with diet control and exercise, medication as prescribed F/u with eye and foot providersC heck BS at least once/day at home before meal/bedti me Addendum 12/07/17A1C 10.2Does not want injection. Increase glyburide to 5 mm GID and add januvia 100mg daily.Does not want to be on metformin- causes diarrhoea. Call back with BS readings in 2 wks.diet control emphasized .Refer to [employer] . Addendum 03/07/18Hom e BS lot better. Ct same with diet control and exercise. Addendum 05/13/18A1c 8.2Increas e alogliptin to 25mg daily.Ct with diet control and exercise, medication as prescribed F/u with eye and foot providersC heck BS at least once/day at home before meal/bedti me Essential hypertension 91056944 I10 Controlled . Ct same with low salt diet Generalize d anxiety disorder 68485357 F41.1 Empiricall y try fluoxetine 20mg daily, aware if weird dream/suic idal thoughts to stop and call the office. Addendum 05/13/18ym ptomatical ly lot better, not started the medication . Pure hypercholesterolemia 849869516 E78.00 LDL 84.Low cholestrol diet emphasised Ct medication as prescribed Obesity 053896927 E66.9 Recommend to loose weight with diet control and exercise. History of varicose veins 699457542 Z86.79 Had surgery before. Using tika hose while on her feet.Adden dum 05/13/18 Wearing tika hose, feels better, no cramps lately Bladder mu scle dysfunction - overactive 285559783 N32.81 Under care by , on oxybutynin daily, recommende d Kegel exercise. Vitamin D deficiency 347 88064 E55.9 Take daily vit D 3 100units. [id number] MD Franko ANAYA [address] [facility] [place] [address] 06/02/2018 14:34:14 06/14/2018 09:34:12 Thoracic back pain 560430669 M54.6 Vague history. DM, HTN. SBP on different arms ok. Evaluate for ACS, pancreatit is. Atypical chest pain 1025 58532 R07.89 Differenti als - Costochond ritis, pneumonia. CXR to evaluate. [id number] MD Franko Shipman 14 IM [address] [facility] [address] [place] [address] 06/17/2018 11:04:02 06/20/2018 09:42:23 Pure hypercholesterolemia 504874861 E78.00 LDL 84.Low cholestrol diet emphasised Ct medication as prescribed Type 2 uri betes mellitus 94252771 E11.9 Home BS fairly controlled .Ct with diet control and exercise, medication as prescribed F/u with eye and foot providersC heck BS at least once/day at home before meal/bedti me Addendum 12/07/17A1C 10.2Does not want injection. Increase glyburide to 5 mm GID and add januvia 100mg daily.Does not want to be on metformin- causes diarrhoea. Call back with BS readings in 2 wks.diet control emphasized .Refer to [employer] . Addendum 03/07/18Hom e BS lot better. Ct same with diet control and exercise. Addendum 05/13/18A1c 8.2Increas e alogliptin to 25mg daily.Ct with diet control and exercise, medication as prescribed F/u with eye and foot providersC heck BS at least once/day at home before meal/bedti me Addendum 06/17/18A1c 8.0Home lot better since last visit.Ct with diet control and exercise, medication as prescribed F/u with eye and foot providersC heck BS at least once/day at home before meal/bedti me Essential hypertension 93307678 I10 Controlled . Ct same with low salt diet Generalize d anxiety disorder 39550115 F41.1 Empiricall y try fluoxetine 20mg daily, aware if weird dream/suic idal thoughts to stop and call the office. Addendum 06/17/18ym ptomatical ly lot better, not started the medication . Bladder mu scle dysfunction - overactive 689143221 N32.81 Under care by , on oxybutynin daily, recommende d Kegel exercise. Obesity 094361071 E66.9 Recommend to loose weight with diet control and exercise. Strain of right trapezius muscle 8243007229 7141698 S29.012D On & off issue. Do stretching exercise.B nalini now [id number] MD Franko Shipman 14 IM [address] [facility] [place] [address] 07/01/2018 13:57:33 07/06/2018 16:45:53 Contact dermatitis 06569430 L25.9 Probably due to sumac.Use the cream, Avoid exposureIf no better in few days / getting worse, come in / go to ER. [id number] MD Franko Shipman 14 IM [address] [facility] [place] [address] 09/13/2018 15:53:45 09/14/2018 14:43:53 Essential hypertension 48362082 I10 [address]rolled . Ct same with low salt diet Type 2 uri betes mellitus 65511951 E11.9 Home BS fairly controlled .Ct with diet control and exercise, medication as prescribed F/u with eye and foot providersC heck BS at least once/day at home before meal/bedti me Pure hypercholesterolemia 230285155 E78.00 LDL 84.Low cholestrol diet emphasised Ct medication as prescribed Bladder mu scle dysfunction - overactive 206252053 N32.81 Under care by , on oxybutynin daily, recommende d Kegel exercise. Body mass index 30+ - obesity 543463635 Z68.39 Recommend to loose weight with diet control and exercise. Vitamin D deficiency 347 53165 E55.9 check level [id number] MD Franko Shipman [address] [facility] [place] [address] 09/22/2018 10:22:54 09/22/2018 15:43:11 Type 2 diabetes mellitus 97003514 E11.9 Home BS fairly controlled .Ct with diet control and exercise, medication as prescribed F/u with eye and foot providersC heck BS at least once/day at home before meal/bedti meAddendum 09/22/18A1c 8.1Agree to try metformin ER 500mg 2 in the morning and repeat A1c in 3 months before next visit. Recommende d diet control and exercise. [id number] MD Franko Shipman 14 IM [address] [facility] [place] [address] 10/10/2018 15:01:48 10/11/2018 17:25:04 [place] eye disease 657338190 H10.89 Use the medication , If getting worse go to ER. [id number] MD Franko Shipman [address] [facility] [place] [address] 12/21/2018 14:38:45 12/22/2018 10:44:34 Type 2 diabetes mellitus 02678459 E11.9 Home BS fairly controlled .Ct with diet control and exercise, medication as prescribed F/u with eye and foot providersC heck BS at least once/day at home before meal/bedti meAddendum 09/22/18A1c 8.1Agree to try metformin ER 500mg 2 in the morning and repeat A1c in 3 months before next visit. Recommende d diet control and exercise.Home BS better per the pt, Check A1c by next visit. Essential hypertension 06926820 I10 [address] same with low salt diet Pure hypercholesterolemia 532471304 E78.00 LDL 84.Low cholestrol diet emphasised Ct medication as prescribed Body mass index 30+ - obesity 627001243 Z68.39 Recommend to loose weight with diet control and exercise. Bladder mu scle dysfunction - overactive 925432806 N32.81 Under care by , on oxybutynin daily, recommende d Kegel exercise. Posterior rhinorrhea 758 32830 R09.82 Avoid known allergens. Taking loratadine PRN [id number] MD Franko Shipman 14 [address] [facility] [place] [address] 03/20/2019 11:27:39 03/21/2019 10:03:49 Type 2 diabetes mellitus 05580205 E11.9 Home BS fairly controlled .Ct with diet control and exercise, medication as prescribed F/u with eye and foot providersC heck BS at least once/day at home before meal/bedti meAddendum 09/22/18A1c 8.1Agree to try metformin ER 500mg 2 in the morning and repeat A1c in 3 months before next visit. Recommende d diet control and exercise.Home BS better per the pt, Check A1c by next visit.03/20A1c 8.9- pt refuses to be on insulin/an y type of shots- agree to see Endo and nutritinis t, will refer.Add Farxiga 5mg daily with morning mealStop soda/yovany lates Essential hypertension 62106545 I10 Controlled [address] same with low salt diet Pure hypercholesterolemia 851594507 E78.00 Low cholestrol diet emphasised Ct medication as prescribed Body mass index 30+ - obesity 805195878 Z68.39 Recommend to loose weight with diet control and exercise. Bladder mu scle dysfunction - overactive 059608896 N32.81 Under care by , on oxybutynin daily, recommende d Kegel exercise. Vitamin D deficiency 347 85003 E55.9 check level Screening for malignant neoplasm of colon 032587120 Z12.11 Refuses colonoscop y [id number] MD Franko Shipman 14 IM 4 [facility] [address] [address] 07/06/2019 09:59:05 07/07/2019 11:43:02 Pure hypercholesterolemia 348601358 E78.00 Low cholestrol diet emphasised Ct medication as prescribed Type 2 uri betes mellitus 53617580 E11.9 03/20/19A1c 8.9- pt refuses to be on insulin/an y type of shots- agree to see Endo and nutritinis t, will refer.Add Farxiga 5mg daily with morning mealStop soda/yovany lates 07/06/19Did see Dr.TaeHome DEVLIN [facility] k A1c today- 6.6 Essential hypertension 63471507 I10 [address] same with low salt diet Body mass index 30+ - obesity 818950130 Z68.39 Recommend to loose weight with diet control and exercise. Bladder mu scle dysfunction - overactive 370213544 N32.81 Under care by , on oxybutynin daily, recommende d Kegel exercise. Screening for malignant neoplasm of colon 802582113 Z12.11 Refuses colonoscop y History of varicose veins 969909809 Z86.79 Had surgery before. Using tika hose while on her feet.Adden dum 05/13/18 Wearing tika hose, feels better, no cramps lately 07/06/19Not wearing stockings. [id number] MD Franko Shipman 14 IM [address] [facility] [place] [address] 08/02/2019 11:19:10 08/03/2019 12:10:53 Conjunctivitis 4361029 H10.9 Use the eye drops. If no better call/ go to ER [id number] MD Franko Shipman 14 IM [address] [facility] [place] [address] 10/06/2019 10:35:07 10/09/2019 11:38:41 Essential hypertension 78300150 I10 Controlled [address] same with low salt diet Type 2 uri betes mellitus 90590784 E11.9 07/06/19 Did see BS betterChec k A1c today- 6.6 10/06/19 On alogliptin and glyburide 5 of 2 tabs BID per the EndoContro l BS better Pure hypercholesterolemia 578578330 E78.00 Low cholestrol diet emphasised Ct medication as prescribed Body mass index 30+ - obesity 864193896 Z68.39 Recommend to loose weight with diet control and exercise. Bladder mu scle dysfunction - overactive 436432486 N32.81 Under care by , on oxybutynin daily, recommende d Kegel exercise. Vitamin D deficiency 347 59839 E55.9 check level [id number] MD Franko Shipman 14 IM [address] [facility] [place] [address] 11/28/2019 11:30:06 11/29/2019 12:28:19 Acute gingivitis 02400196 K05.00 recommend to f/u with your dentist.Am oxilOral care recommende d.Note for jury duty given Please excuse the above patient from jury duty as she cannot stay longer at a place for a long time, had to use bathroom frequently ' [id number] MD Franko Shipman 14 IM [address] [facility] [place] [address] 01/18/2020 10:19:51 01/19/2020 08:55:31 Essential hypertension 07174210 I10 [address]rolled [address] same with low salt diet Type 2 uri betes mellitus 07243085 E11.9 10/06/19 On alogliptin and glyburide 5 of 2 tabs BID per the EndoContro l BS better 01/18/20Und er care by A1c was 7.1recomme nd to control BS better.f/u with your eye provider too yearly Pure hypercholesterolemia 766767065 E78.00 Low cholestrol diet emphasised Ct medication as prescribed Bladder mu scle dysfunction - overactive 481955447 N32.81 Under care by , on oxybutynin daily before recommende d Kegel exercise. Body mass index 30+ - obesity 860298640 Z68.39 Recommend to loose weight with diet control and exercise. [id number] MD Franko Shipman 14 IM [address] [facility] [place] [address] 04/18/2020 08:40:46 04/19/2020 07:33:11 Essential hypertension 66830500 I10 Clinically feels well.Ct same with low salt diet Type 2 uri betes mellitus 21617504 E11.9 10/06/19 On alogliptin and glyburide 5 of 2 tabs BID per the EndoContro l BS better 01/18/20Und er care by A1c was 7.1recomme nd to control BS better.f/u with your eye provider too yearly04/18Home BS improving. Does see Pure hypercholesterolemia 378328631 E78.00 Low cholestrol diet emphasised Ct medication as prescribed Bladder mu scle dysfunction - overactive 424028611 N32.81 Under care by , on oxybutynin daily before recommende d Kegel exercise.Feel s well clinically . [id number] MD Franko Shipman 14 IM [address] [facility] [place] [address] 06/19/2020 13:19:05 06/20/2020 14:01:38 Pruritic rash 26134032 L28.2 ? blistery with various healing stages.try bactrim and hydroxyzin e for itching Long-term drug therapy 321287555 Z79.202 [id number] MD Franko Shipman 14 IM [address] [facility] [place] [address] 10/08/2020 15:27:32 10/09/2020 11:06:04 Essential hypertension 76938096 I10 Clinically feels well.Ct same with low salt diet Type 2 uri betes mellitus 67088464 E11.9 01/18/20 Under care by A1c was 7.1recomme nd to control BS better.f/u with your eye provider too yearly04/18Home BS improving. Does see 11/22 06/10A1c at Endo office in May 2020 was 10.5!home BS improving per the pt Pure hypercholesterolemia 364990239 E78.00 Low cholestrol diet emphasised Ct medication as prescribed Bladder mu scle dysfunction - overactive 892480785 N32.81 Feels well clinically . Long-term drug therapy 013178597 Z79.899 Edema of l ower extremity 422971610 R60.0 Take the medication keep the leg elevated while restingif no better call back Acute gingivitis 1705708 5 K05.00 recommend to f/u with your dentist.Am oxilOral care recommende d. [id number] MD Franko Shipman 14 IM [address] [facility] [place] [address] 01/29/2021 08:50:49 01/30/2021 17:44:53 Essential hypertension 81779593 I10 Clinically feels well.Ct same with low salt diet Type 2 uri betes mellitus 52378858 E11.9 10/08/20 A1c at Endo office in May 2020 was 10.5!home BS improving per the pt01/29/21A 1c in Sep 2020 6.9on jardiance 25 + Januvia 100+ glipizide 10 BIDHome BS better Pure hypercholesterolemia 088963043 E78.00 Low cholestrol diet emphasised Ct medication as prescribed Bladder mu scle dysfunction - overactive 972974375 N32.81 Feels well clinically . Long-term drug therapy 843238788 Z79.899 Acute uppe r respiratory infection 00134952 J06.9 Hydrate well. Use humidifier Take medication as prescribed , If getting worse come in / go to ER [id number] MD Franko Shipman 14 IM [address] [facility] [address] [place] [address] 02/05/2021 11:04:44 02/06/2021 19:32:32 Acute upper respiratory infection 12736992 J06.9 Hydrate well. Use humidifier Take medication as prescribed , If getting worse come in / go to ER02/05/21n o much improvemen ttake Z shazia and medrol dos pakHydrate wellUse humifierGo to ErR if getting worse [id number] MD Franko Shipman 14 IM [address] [facility] [place] [address] 02/26/2021 08:24:35 02/27/2021 07:23:35 COVID-19 939613443 U07.1 recovering . Asymptomat ic Imaging of lung abnormal 398202585 R91.8 Probably due to # 1 above. Will do f/u CXR as recommende d Multinodular goiter [address] at the ER Left morales thyroid 19 mm Refer to Endo also do u/s [id number] MD Franko Shipman 14 IM [address] [facility] [place] [address] 06/05/2021 08:33:52 06/06/2021 13:38:34 Type 2 diabetes mellitus 58949532 E11.9 10/08/20A1 c at Endo office in May 2020 was 10.5!home BS improving per the pt01/29/21A 1c in Sep 2020 6.9on jardiance 25 + Januvia 100+ glipizide 10 BIDHome BS better06/05Doing well at homerecomm end f/u with eye Essential hypertension 95582595 I10 Clinically feels well.Ct same with low salt diet Pure hypercholesterolemia 389445409 E78.00 Low cholestrol diet emphasised Ct medication as prescribed Bladder mu scle dysfunction - overactive 655210340 N32.81 Feels well clinically . Multinodular goiter [address] at the ER Left morales thyroid 19 mm Refer to Endo also do u/06/05/21 FNA was benign [id number] MD Franko Shipman 14 IM [address] [facility] [place] [address] 07/07/2021 14:30:04 07/08/2021 10:32:01 Acute upper respiratory infection 92667243 J06.9 Hydrate well. Use humidifier Take medication as prescribed , If getting worse come in / go to ER [id number] MD Franko Shipman 14 IM [address] [facility] [place] [address] 09/23/2021 15:23:31 09/25/2021 15:41:36 Essential hypertension 79108039 I10 [address] same with low salt diet Type 2 uri betes mellitus 38870827 E11.9 01/29/21A1c in Sep 2020 6.9on jardiance 25 + Januvia 100+ glipizide 10 BIDHome BS better06/05Doing well at homerecomm end f/u with eye09/23/21 A1c per Endo on 08/14/21 was 8.7No Jardiance back on metformin home BS lately better per the pt Pure hypercholesterolemia 308503893 E78.00 Low cholestrol diet emphasised Ct medication as prescribed Bladder mu scle dysfunction - overactive 139799528 N32.81 Feels well clinically . Acute gingivitis 3844122 5 K05.00 recommend to f/u with your dentist.Am oxilOral care recommende d. Influenza vaccination declined 485293581 Z28.21 Screening for malignant neoplasm of colon 410890456 Z12.11 Refuses colonoscop y Long-term drug therapy 519977260 Z79.777 [id number] MD Franko Shipman 14 IM [address] [facility] [place] [address] 02/03/2022 09:57:30 02/04/2022 10:38:43 Type 2 diabetes mellitus 57838416 E11.9 09/23/21A1c per Endo on 08/14/21 was 8.7No Jardiance back on metformin home BS lately better per the pt02/03/22 ndo office A1c was 8.0 on 11/20/21Oz empic started per the Endo, increased to 1 mg weekly nowHome BS better controlled Does see Eye regularly Essential hypertension 97170175 I10 [address] same with low salt diet Pure hypercholesterolemia 166224775 E78.00 Low cholestrol diet emphasised Ct medication as prescribed Body mass index 30+ - obesity 245028191 Z68.39 Recommend to loose weight with diet control and exercise. Long-term drug therapy 296751819 Z79.899 Overactive urinary bladder 244631821 N32.81 better controlled .rarely uses pads [id number] MD Franko Shipman 14 IM [address] [facility] [place] [address] 04/28/2022 11:52:24 04/28/2022 15:15:36 Acute upper respiratory infection 31967964 J06.9 Hydrate well. Use humidifier Take medication as prescribed , If getting worse come in / go to ER [id number] MD Franko Shipman 14 IM [address] [facility] [place] [address] 06/09/2022 10:13:17 06/10/2022 14:23:48 Type 2 diabetes mellitus 09968083 E11.9 under care per 1c 8.3 in January later 7.3 probably in March at Endo per the ptscrewed up ozempic pens, now wants refill , on 1 mg weekly per - f/u on 07/03/22 theref/u with eye yearly Essential hypertension 27476577 I10 Controlled [address] same with low salt diet Bladder mu scle dysfunction - overactive 626707862 N32.81 Feels well clinically . Pure hypercholesterolemia 644826241 E78.00 Low cholestrol diet emphasised Ct medication as prescribed Overactive urinary bladder 483859708 N32.81 better controlled .rarely uses pads Obesity 822997167 E66.9 Recommend to loose weight with diet control and exercise. Occult blo od detected in feces 81815642 R19.5 OB positive- refer for colonoscop y'Spoke with pt. Pt stated that she did speak with Dr. Rolon office and that they explained the test to her. Pt stated that she declined the testing at this time. Pt states that she does not want the referral at this time.'per 05/05/22 notes, still doesn't want even to repeat cologuard test! Posterior rhinorrhea 758 99871 R09.82 Avoid known allergens. cetirizine helping Varicose v eins of lower extremity 91884747 I83.893 Had stripping 10-15 yrg agoCt with support hose.asymp tomatic [id number] MD Franko Shipman 14 IM [address] [facility] [place] [address] 10/06/2022 10:17:23 10/07/2022 09:30:16 Pure hypercholesterolemia 892403007 E78.00 Low cholestrol diet emphasised Ct medication as prescribed Essential hypertension 57083986 I10 [address]rolled [address] same with low salt diet Type 2 uri betes mellitus 87375145 E11.9 under care per 8.3 in January later 7.3 probably in March at [facility] per the ptscrewed up ozempic pens, now wants refill , on 1 mg weekly per - f/u on 07/03/22 theref/u with eye tgydzf79/1 04/12A1c 7.5 in Jun at EndoHome BS betterNot see eye for sometime- recommend to f/u Bladder mu scle dysfunction - overactive 975509835 N32.81 Feels well clinically . History of varicose veins 895879244 Z86.79 Had surgery before. Using tika hose while on her feet.while wearing tika hose, feels better, no cramps lately Overactive urinary bladder 481795545 N32.81 better controlled .rarely uses pads Long-term drug therapy 610754607 Z79.899 Posterior rhinorrhea 758 71210 R09.82 Avoid known allergens. cetirizine sent before, not picked it up Screening for malignant neoplasm of colon 113460946 Z12.11 Refuses colonoscop y Influenza vaccination declined 808031025 Z28.21 Overweight 570383544 E66 .3 Recommend to loose weight with diet control and exercise. [id number] MD Franko Shipman 14 IM [address] [facility] [place] [address] 04/06/2023 09:39:41 04/06/2023 15:29:12 Type 2 diabetes mellitus 92567031 E11.9 under care per in Dec was 6.2 while on metformin 1G BID ,glipizide 10mg BID + ozempic 1 mg weeklyDoes see eye yearly Essential hypertension 48715461 I10 [address] same with low salt diet Overactive urinary bladder 185877944 N32.81 better controlled .rarely uses pads Pure hypercholesterolemia 247868293 E78.00 Low cholestrol diet emphasised Ct medication as prescribed Overweight 930408957 E66 .3 Recommend to loose weight with diet control and exercise. Posterior rhinorrhea 758 99948 R09.82 Avoid known allergens. cetirizine sent Long-term drug therapy 106272564 Z79.899 Administra tion of pneumococcal vaccine 44393579 Z23 Pt refused Postmenopausal state 764 03876 Z78.0 Refuses DEXA w/u [id number] MD Franko Shipman 14 IM [address] [facility] [place] [address] 07/27/2023 14:08:58 07/28/2023 11:08:35 Acute upper respiratory infection 50213531 J06.9 Hydrate well. Use humidifier Take medication as prescribed , If getting worse come in / go to [facility] at home next few days for sneezing issueDo home covid test and call back Exposure t o SARS-CoV-2 790014971 Z20.451 [id number] MD Franko Shipman 14 IM [address] [facility] [address] [place] [address] 08/17/2023 10:21:25 08/18/2023 14:10:06 Pure hypercholesterolemia 378577033 E78.00 Low cholestrol diet emphasised Ct medication as prescribed Type 2 uri betes mellitus 76079973 E11.9 Under care per in Dec was 6.2 while on metformin 1G BID ,glipizide 10mg BID + ozempic 1 mg weeklyDoes see eye yearly08/17A1c 5.8 Endo 07/19/23- Glipizide reduced (5mg BID)On ozempic toodoes see eye Essential hypertension 95115800 I10 Controlled [address] same with low salt diet Overactive urinary bladder 823841474 N32.81 better controlled .Uses pads Overweight 234508753 E66 .3 Recommend to loose weight with diet control and exercise.) n Ozempic too per the Endo [id number] MD Franko Shipman 14 IM [address] [facility] [address] [place] [address] 01/03/2024 10:07:40 01/04/2024 09:15:10 Type 2 diabetes mellitus 74637571 E11.9 08/17/23A1c 5.8 Endo 07/19/23- Glipizide reduced (5mg BID)On ozempic toodoes see eye Pure hypercholesterolemia 117153668 E78.00 Low cholestrol diet emphasised Ct medication as prescribed Essential hypertension 18077429 I10 [address] same with low salt diet Overactive urinary bladder 253966827 N32.81 better controlled .Uses pads Overweight 513640754 E66 .3 Recommend to loose weight with diet control and exercise.) on Ozempic too per the Endo Screening mammography 24 885051 Z12.31 [id number] MD Franko Holloway 14 IM [address] [facility] [place] [address] 03/20/2024 11:10:13 03/28/2024 09:08:13 Type 2 diabetes mellitus 55852364 E11.9 Most recent HbA1c: 6.0 last month; comorbid conditions : HLD, HTN, obesity- lifestyle modificati ons discussed- low carb diet discussed w/ pt. Advised to adopt the mediterran chhaya diet, and to avoid foods that are high in sugar and that are fried.- Only on ozempic increased today and glipizide 5mg which is going to be stopped. Does follow up w/ endocrinol carla next appointmen t in July. Dr. Porter Screening for osteoporosis 692845337 Z13.820 SARS-CoV-2 mRNA vaccine declined 6907591846 Z28.21 Influenza vaccination declined 279152335 Z28.21 [id number] MD Franko Ash 14 IM [address] [facility] [address] [place] [address] 02/02/2025 10:45:06 02/06/2025 13:28:11 Obesity 215899130 E66.9 lifestyle modificati ons discussed Essential hypertension 65679483 I10 chronic, controlled - continue HCTZ 25 mg po od, lisinopril 10 mg po od Type 2 uri betes mellitus 38643218 E11.9 chronic, controlled A1c (11/14): 6.7%on glipizide 5 mg po bid, ozempic 2 mg sc weeklyFoll sheila w/ Dr. Umaña- sugars controlled at home- discussed feet checks, eye checks (does diabetic foot exam for patient)- continue annual eye exams Pure hypercholesterolemia 393419497 E78.00 chronic, controlled - continue lovastatin 10 mg po od Screening for malignant neoplasm of colon 300654051 Z12.11 Options discussed with patient for CRC screening including: - High sensitivit y guiaic fecal occult blood test (HSgFOBT) or fecal immunochem ical test (FIT) every year- Stool DNA-FIT every 1-3 years- CT colonograp hy every 5 years- Flexibile sigmoidosc opy every 5 years- Flexible sigmoidosc opy every 10 years + annual FIT- Colonoscop y screening every 10 years These options start at age 45. In patients with first degree relatives with CRC or high-risk adenomatou s polyp, screening starts at age 40 and colonoscop y is repeated every 5 years. Patient has opted to proceed with cologuard Administra tion of diphtheria, pertussis, and tetanus vaccine 248897348 Z23 [id number] MD Franko Ash 14 IM [address] [facility] [address] [place] [address], [place] [address] 05/07/2025 10:21:08 05/11/2025 09:56:51 Adult health examination 237647090 Z00.00 Health Risk Assessment collected and reviewed History an d physical examination, annual for health maintenance 69553186 Z00.00 5903345 Health Risk Assessment collected and reviewedSL UMS: Patie nt is going to be moving in with her FianceeEver, who she states she will make the POA [id number] MD Franko Don 14 IM [address] [facility] [address] [place], [place] [address] [address] 08/14/2025 11:35:29 08/16/2025 09:25:59 Well woman health examination 597043321 Z01.419 084919 - 70 y/o F A0 here for well woman exam- Doing well- Breast exam normal- Genital exam deferred due to patient preference - Postmenopa usal- had partial hysterecto my about 35 years ago- Denies h/o abnormal pap smears- Mammogram up to date- f/u in 1 year Postmenopausal state 764 81737 Z78.0 - See above Overweight 840918362 E66 .3 Health Concerns Section Related Observation LastModified by Organization Detai ls LastModified Time None Recorded Concern Status LastModified by Organization Details LastModified Time None Recorded Advance Directives Directive N: Payers Insurance Date Sequence Insurance Name Policy Number Policy James Covered Member ID James Member ID Guarantor Name 06/03/2021 SLIDING FEE SCHEDULE - DISCOUNT Germaine Lui 06/06/2025 2 [place] WHEN MEDICARE OR MEDICARE REPLACEMENT PRIMARY) Germaine Lui [id number] Germaine Lui 06/06/2025 2 [place] [facility] Germaine Lui [id number] Germaine Lui 06/06/2025 [place] [facility] Germaine Lui [id number] Germaine Lui 06/06/2025 3 [place] Germaine Lui [id number] Germaine Lui 04/22/2023 1 UNSPECIFIED REMIT PAYOR Germaine Lui 06/06/2025 3 [employer] (MEDICARE REPLACEMENT/AD VANTAGE - PPO) Germaine Lui [id number] Germaine Lui 08/13/2025 1 [employer] [place] (MEDICARE [place]PLACEMENT [place]MO) Gemraine Lui [id number] Germaine Lui 06/06/2025 1 [facility] (MEDICAID HMO) [id number] Germaine Lui [id number] Germaine Lui 06/06/2025 1 [employer] (MEDICARE REPLACEMENT/AD VANTAGE - HMO) Germaine Lui [id number] Germaine Lui Notes Date Note Type Note Provider Name and Address Organization Details Recorded Time 4 text/htm l HyperlipidemiaReported by PatientHPIFor type of hyperlipidemia, patient reportshypercholesterolemi a. For duration, patient reportschronic. For risk factors, patient reportsdiabetes,hypertensi on, andobesity. For control, patient reportsimproving. For current therapy, patient reportscurrently taking: (med as prescribed-lovastatin). For compliance, patient reportscompliant with diet. For complications, patient reportsno coronary artery disease. Hypertension F/UReported by PatientHPIFor associated symptoms, patient reportsno dizziness,no chest pain,no palpitations, andno edema. For lifestyle, patient reportsregular exerciseandlimiting/avoidi ng salt. For medications, patient reportstaking medications as directedandno side effects from medication. Sinusitis/AllergyReported by PatientHPIFor severity, patient reportsno painanddoes not limit daily activities. For risk factors, patient reportsno current smoking or tobacco useandno history of smoking. Diabetes F/UReported by PatientHPIFor review finger sticks, patient reportsfastin-130. For labs, patient reportslast a1c result: a1c 5.8 endo 07/19/23- glipizide reduced.. For context, patient reportsnot missing doses of medicationsandno side effects from medications. 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 For review finger sticks, patient reportsfastin-130. For labs, patient reportslast a1c result: a1c 6.8 endo 07/19/23- glipizide reduced.. 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, [address], [facility] [place] 03/24/2024 18:10:13 5 text/htm l ROS as noted in the HPI 70 female presenting to [facility] [facility]. No concerns today.Pt denies headache, dizziness, syncope, change in vision, congestion, sore throat, nausea, vomiting, chest pain, cough, SOB, orthopnea, abdominal pain, diarrhea, constipation, or difficulty urinating. She denies tobacco use and drinks 1-2 drinks on occasion. HTN- on HCTZ 25 mg po od, lisinopril 10 mg po od- BP at home typically good hypercholesterolemia- on lovastatin 10 mg po od T2DM- Sees Dr. Umaña, had recent eye check, last A1c 6.7% (11/14)- on glipizide 5 mg po bid, ozempic 2 mg sc weekly Enrrique Montalvo MD Attn: Accounting,[address] [facility], [place], [address], [facility] 02/05/2025 17:03:25 5 text/htm l MAW 2Reported by PatientSocial/Behavioral HistoryFor diet and nutrition, patient reportshealthy diet. For fracture risk, patient reportsno history of fracturesandno sudden unexplained fractures.Mental Status:For concentration and memory, patient reportsno decreased concentrating ability,no memory lapses or loss, anddoes not forget words. For speech/motor difficulties, patient reportsno speech difficulties,no difficulty expressing formulated concepts,no difficulty with fine manipulative tasks,no difficulty writing/copying,no slowed reaction time, anddoes not knock things over when trying to pick them up.Functional AbilityFor vision, patient reportsworse with distance(wears glasses05/07/25). For hearing, patient reportsno loss of hearing. For activities of daily living, patient reportsable to bathe with limited or no assistance,able to contol urination and bowels,able to dress with limited or no assistance,able to feed self with limited or no assistance,able to get out of chair or bed with limited or no assistance,able to groom with limited or no assistance, andable to toilet with limited or no assistance. For instrumental activities of daily living, patient reportsable to do house work with limited or no assistance,able to grocery shop with limited or no assistance,able to manage medications with limited or no assistance,able to manage money with limited or no assistance,able to prepare meals with limited or no assistance, andable to use the phone with limited or no assistance. For falls risk assessment, patient reportsno frequent falls while walking,no fall in the past year,no fall since last visit, andno dizziness/vertigo. For home safety, patient reportsno unsafe klaudia hazzards,no unsafe stairs,working smoke/co detectors, andgood lighting in the home.ROS as noted in the HPI Enrrique Montalvo MD Attn: Accounting,[address] [facility], [place], [address], [facility] 05/10/2025 23:03:41 5 text/htm l Annual GYNReported by PatientHistoryFor history, patient reportsno gynecologic complaints.Genitourinary symptomsFor urinary symptoms, patient reportsincontinencebut reportsno hematuria(h/o incontinence- on oxybutynin doing well). For vulva, patient reportsno genital lesion. For vagina, patient reportsnormal vaginal discharge. For menstrual cycle, (postmenopausal- had partial hysterectomy about 35 years ago).Breast symptomsFor breast, patient reportsno breast pain,no breast lump, andno nipple discharge.ContraceptionFor current contraception, patient reportsmonogamous relationship.Endocrine symptomsFor sexual complaints, patient reportsno sexual complaints,no pain during intercourse, andnormal libido. For menopausal symptoms, patient reportsno menopausal symptomsandnormal vaginal lubrication.Psychological symptomsFor psychological symptoms, patient reportsno depressionandno anxiety.Preventative measuresFor preventive measures, patient reportsencourage regular exercise,encourage regular mammograms starting age 40, andmammogram performed within the past year.ROS as noted in the HPI 70 y/o F A0 presents to the clinic for well woman exam.Doing well.Patient reports a few days ago she had some abdominal discomfort which has now resolved- reports she usually gets this when her daughter is on her period and stops when her daughter stops her period.Denies dysuria, increased frequency of urination and urge to urinate.Has history of urinary incontinence- uses Oxybutynin and reports it is helping. Reports she does not need Oxybutynin refilled at this time.Postmenopausal. Had partial hysterectomy about 35 years ago.Last mammogram: June 05, 2025 was normalDenies history of abnormal pap smear.No other concerns. Ramakrishna Yadav MD Attn: Accounting[address] [place], [address], [facility] 08/15/2025 12:45:55 OBGyn Episode No OBEpisode recorded.
[2025-08-22 17:56] VITALS: BP 123/59; PULSE 70; RESP 16; TEMP 36.4; O2SAT 100
--- NOTE | 2025-08-22 18:15 | ED.FEMALEGU ---
HPI - Female Genitourinary General Chief complaint: Urogenital-Female Stated complaint: poss UTI Time Seen by Provider: 08/22/25 18:15 Source: patient, RN notes reviewed and old records reviewed Mode of arrival: ambulatory Limitations: no limitations History of Present Illness HPI Narrative: 70 year old female presents to [facility] care with complaints of 1 week duration of pelvic pressure after urinating with increased symptoms since last night. Patient reports no fevers, chills or sweats,denies any abdominal pain nausea vomiting or diarrhea. Patient admits to history of overactive bladder and does take medication for this diagnosis. Patient reports no burning with urination or any flank pain. MD elicited complaint: UTI Pertinent past history: other (overactive bladder) Onset (ago): week(s) (week) Location of symptoms: pelvis Quality of pain: other (pressure after voids) Vaginal discharge: none Vaginal bleeding: none Treatment prior to arrival: none Related Data Home Medications ?Medication ?Instructions ?Recorded ?Confirmed ?Last Taken ?Type cholecalciferol (vitamin D3) 125 125 mcg PO EVERY OTHER DAY 06/28/20 06/28/20 Unknown History mcg (5,000 unit) tablet (Vitamin D3) hydrochlorothiazide 25 mg tablet 25 mg PO DAILY 06/28/20 06/28/20 Unknown History lisinopril 10 mg tablet 10 mg PO DAILY 06/28/20 06/28/20 Unknown History lovastatin 10 mg tablet 10 mg PO DAILY 06/28/20 06/28/20 Unknown History oxybutynin chloride 10 mg 10 mg PO DAILY 06/28/20 06/28/20 Unknown History tablet,extended release 24 hr pioglitazone 30 mg PO DAILY 06/28/20 06/28/20 Unknown History cetirizine 10 mg tablet mg 08/22/25 Unknown History glipizide 5 mg tablet mg 08/22/25 Unknown History semaglutide 1 mg/dose (4 mg/3 mL) mg subcut 08/22/25 Unknown History subcutaneous pen injector (Ozempic) Allergies Allergy/AdvReac Type Severity Reaction Status Date / Time No Known Allergies Allergy Verified 08/22/25 17:58 Review of Systems Review of Systems: CONSTITUTIONAL: Denies fever, chills, or sweats. CARDIOVASCULAR: Denies chest pain, palpitations, or edema. RESPIRATORY: Denies cough or dyspnea. GASTROINTESTINAL: Denies abdominal pain, nausea, vomiting, or diarrhea. GENITOURINARY: Reports no dysuria, frequency, urgency, reports pelvic pressure Denies flank pain or hematuria. SKIN: Denies rash or itching. MUSCULOSKELETAL: Denies back pain or myalgia. Denies CVA tenderness NEUROLOGIC: Denies headache All systems reviewed & are unremarkable except as noted in HPI and below PMFSH Past Medical History Medical History (Updated 08/23/25 @ 12:57 by Elly Carlson NP) Cardiac disorder Vein stripping Diabetes Hypertension Hypercholesterolemia Surgical History Surgical History (Updated 06/28/20 @ 16:27 by FELIPE Meek) History of cholecystectomy Social History Social History (Updated 08/23/25 @ 12:54 by Elly Carlson NP) Smoking status: Never smoker Alcohol intake: current Alcohol use details: rare social Substance use type: does not use Gender identity (if verbalized by the patient): Female Comments At time of signature, agree with nursing past medical, surgical, social and family history. There is no relevant family history pertinent to the presenting complaint Exam Narrative: GENERAL: Well-appearing, well-nourished, and in no acute distress. HEAD: Normocephalic, atraumatic. NECK: Supple.no lymphadenopathy CHEST: Clear to auscultation. No respiratory distress.SAO2 100% on room air HEART: Regular rate and rhythm. No murmur heard. Normal peripheral pulses. ABDOMEN: Soft, nontender, nondistended, normal active bowel sounds. No CVA tenderness, no flank pain or any blood noted in urine. EXTREMITIES: Normal range of motion. No edema., reports pelvic pressure after voiding, denies any SKIN: Warm, dry, no rash. NEURO: No focal deficits. Alert and oriented x3. Course Course Emergency Course: Patient is aware of diagnosis, understands and agrees to treatment plan.? Anticipatory guidance given.? Patient agrees to follow-up as directed and is aware of reasons to seek care at the emergency department. Portions of this record may have been created with voice recognition software Level of Care: Express Care Visit Vital Signs Vital signs: Vital Signs Temperature 36.4 C 08/22/25 17:56 Pulse Rate 70 08/22/25 17:56 Respiratory Rate 16 08/22/25 17:56 Blood Pressure 123/59 L 08/22/25 17:56 Pulse Oximetry 100 08/22/25 17:56 Oxygen Delivery Room Air 08/22/25 17:56 Temperature 36.4 C 08/22/25 17:56 Pulse Rate 70 08/22/25 17:56 Respiratory Rate 16 08/22/25 17:56 Blood Pressure 123/59 L 08/22/25 17:56 Pulse Oximetry 100 08/22/25 17:56 Oxygen Delivery Room Air 08/22/25 17:56 MDM - Female Genitourinary MDM Narrative Medical decision making narrative: Exam findings and UA show no acute concerns or changes; patient is non-toxic appearing and is in no distress.? Patient is appropriate for outpatient treatment and follow-up. Differential Diagnosis Differential diagnosis: Likely urinary tract infection, cystitis and other (pelvic pressure) Medical Records Attestation: I reviewed the patient's medical records. Lab Data Attestation: I reviewed the patient's lab results. Lab results narrative: see urine dip:yellow cloudy trace blood in urine, positive nitrite, leukocytes 3+ urine culture sent Labs: Lab Results 08/22/25 Range/Units 18:10 POC Urine Color Yellow POC Urine Clarity Cloudy POC Urine pH 5.5 POC Ur Specif [place] 1.015 POC Urine Protein Negative (Negative) POC Ur Glucose (UA) Negative (Negative) POC Urine Ketones Negative (Negative) POC Urine Blood Trace (Negative) POC Urine Nitrite Positive (Negative) POC Urine Bilirubin Negative (Negative) POC Urine Urobilinogen 0.2 POC U Leukocyte Esteras 3+ (Negative) reviewed Critical Care Time Critical Care Time Critical Care Time: No Discharge Plan Discharge Clinical Impression: Urinary tract infection Qualifiers: Urinary tract infection type: site unspecified Hematuria presence: with hematuria Qualified Code(s): N39.0 - Urinary tract infection, site not specified; R31.9 - Hematuria, unspecified Patient Disposition: Home Condition: Stable Instructions: Antibiotic Form, Urinary Tract Infection in Women (ED) Additional Instructions: Increase fluids especially cranberry juice and water Avoid caffeine and carbonated beverages Antibiotic as directed Tylenol/ibuprofen for pain or fever Follow-up with her primary care provider if further problems or concerns Recheck if you have fever over 101, nausea and vomiting. If your symptoms persist, change or worsen significantly before you can contact your personal physician then please, without delay, go to the emergency department for further evaluation. Follow-up with PCP in 7-10 days or sooner if needed Patient Language: Welsh Prescriptions: New cefdinir 300 mg capsule 300 mg PO Q12H Qty: 14 0RF No Action cholecalciferol (vitamin D3) [Vitamin D3] 125 mcg (5,000 unit) Tablet 125 mcg PO EVERY OTHER DAY pioglitazone 30 MG 30 mg PO DAILY oxybutynin chloride 10 mg Tablet Extended Release 24hr 10 mg PO DAILY lovastatin 10 mg Tablet 10 mg PO DAILY lisinopril 10 mg Tablet 10 mg PO DAILY hydrochlorothiazide 25 mg Tablet 25 mg PO DAILY cetirizine 10 mg tablet glipizide 5 mg tablet Ozempic 1 mg/dose (4 mg/3 mL) pen injector SUBCUT Follow-up/Referrals: PHYSICIAN,QUALITY AND RELIABILITY ENGINEER [Primary Care Provider, Internal Medicine] Time of Disposition: 18:26 Quality [place] Coma Scale Eyes: Open Verbal: Oriented and Alert Motor: Follows Commands Jameel Coma Total Score: 15
[2025-08-22 18:38] LABS: EDUAAPPEAR Cloudy; EDUABILI Negative (Negative); EDUABLOOD Trace (Negative); EDUACOLOR1 Yellow; EDUAGLUCOSE Negative (Negative); EDUAKETONE Negative (Negative); EDUALEUKO 3+ (Negative); EDUANITRATE Positive (Negative); EDUAPH 5.5; EDUAPROTEIN Negative (Negative); EDUASPGRAVITY 1.015; EDUAUROBILI 0.2
== END 2025-08-22 18:39 | disposition home or self-care (01) ==
PROVIDERS: Emergency Provider Registered Nurse
DX: N39.0 Urinary tract infection, site not specified (principal); R31.9 Hematuria, unspecified; E11.9 Type 2 diabetes mellitus without complications; Z79.85 Long-term (current) use of injectable non-insulin antidiabetic drugs; Z79.84 Long term (current) use of oral hypoglycemic drugs; I10 Essential (primary) hypertension; E78.00 Pure hypercholesterolemia, unspecified; N32.81 Overactive bladder
CPT/HCPCS: 81003; 87086; 87186; 99213; G0463

== ENCOUNTER 2025-11-12 12:45 | Emergency (ER) | payer MEDICARE, SELFPAY ==
[2025-11-12 12:57] VITALS: BP 95/66; PULSE 92; RESP 16; TEMP 37.2; O2SAT 99
--- NOTE | 2025-11-12 13:01 | ED.URI ---
HPI - URI/Sore Throat General Chief Complaint: Upper Respiratory Infection Stated Complaint: Cough/Runny Nose/Nasal Congestion Time Seen by Provider: 11/12/25 12:58 Source: patient Mode of arrival: ambulatory Limitations: no limitations History of Present Illness HPI Narrative: Germaine is a 70-year-old female patient presenting to the clinic today with complaints of cough, runny nose, and nasal congestion x2 days. She has not taken any medications for her symptoms. She does take a daily Claritin. Denies any fevers, chills, body aches. Denies any chest pain or shortness of breath. She is a nonsmoker. No history of asthma or COPD. Related Data Home Medications ?Medication ?Instructions ?Recorded ?Confirmed ?Last Taken ?Type cholecalciferol (vitamin D3) 125 125 mcg PO EVERY OTHER DAY 06/28/20 06/28/20 Unknown History mcg (5,000 unit) tablet (Vitamin D3) hydrochlorothiazide 25 mg tablet 25 mg PO DAILY 06/28/20 06/28/20 Unknown History lisinopril 10 mg tablet 10 mg PO DAILY 06/28/20 06/28/20 Unknown History lovastatin 10 mg tablet 10 mg PO DAILY 06/28/20 06/28/20 Unknown History pioglitazone 30 mg PO DAILY 06/28/20 06/28/20 Unknown History cetirizine 10 mg tablet mg 08/22/25 Unknown History glipizide 5 mg tablet mg 08/22/25 Unknown History semaglutide 1 mg/dose (4 mg/3 mL) mg subcut 08/22/25 Unknown History subcutaneous pen injector (Ozempic) Allergies Allergy/AdvReac Type Severity Reaction Status Date / Time No Known Allergies Allergy Verified 08/22/25 17:58 Review of Systems Review of Systems: Pertinent positives per HPI. Patient denies any fever, chills, rash, headache, visual changes, dizziness, shortness of breath, chest pain, palpitations, nausea, vomiting, diarrhea, constipation, abdominal pain, or any urinary issues. [facility] Past Medical History Medical History (Updated 11/12/25 @ 13:02 by Jourdan Nava APRN) Cardiac disorder Vein stripping Diabetes Hypertension Hypercholesterolemia Surgical History Surgical History History of cholecystectomy Social History Social History Smoking status: Never smoker Alcohol intake: current Alcohol use details: rare social Substance use type: does not use Gender identity (if verbalized by the patient): Female Comments At the time of my signature, I reviewed and agree with the nursing past medical, surgical, social, and family history. There is no relevant family history pertinent to the patient complaint. Exam Narrative: General: Well-developed, well nourished, in no apparent distress Head: Normocephalic, atraumatic Eyes: Pupils equally round and reactive to light bilaterally, EOM intact, sclera and conjunctive clear, no discharge, lids normal Ears: TMs intact and clear, ear canals clear, no drainage, grossly hearing normal. Nose: Nares patent, clear discharge, mild inflammation, no sinus tenderness. Mouth: Oral pharynx without lesions or masses, good dentition, MMM. Postnasal drip Neck: Supple, trachea midline, no enlargement of anterior or posterior cervical nodes, no thyroid masses or goiter palpable. Cardio: Regular rate and rhythm, s1 and s2 normal, no murmur appreciated. Resp: Clear to auscultation bilaterally, no rhonchi, rales, wheezing or rubs Course Course Level of Care: Express Care Visit Vital Signs Vital signs: Vital Signs Temperature 37.2 C 11/12/25 12:57 Pulse Rate 92 11/12/25 12:57 Respiratory Rate 16 11/12/25 12:57 Blood Pressure 95/66 L 11/12/25 12:57 Pulse Oximetry 99 11/12/25 12:57 Oxygen Delivery Room Air 11/12/25 12:57 Temperature 37.2 C 11/12/25 12:57 Pulse Rate 92 11/12/25 12:57 Respiratory Rate 16 11/12/25 12:57 Blood Pressure 95/66 L 11/12/25 12:57 Pulse Oximetry 99 11/12/25 12:57 Oxygen Delivery Room Air 11/12/25 12:57 [facility] MDM Narrative Medical decision making narrative: At the time of visit patient is resting comfortably on the exam table. Patient appears to be nontoxic. Complaints of cough, runny nose, and nasal congestion x2 days. She has not taken any medications for her symptoms. She does take a daily Claritin. Denies any fevers, chills, body aches. Denies any chest pain or shortness of breath. She is a nonsmoker. No history of asthma or COPD. On exam patient has mild TMs intact and clear, clear nasal drainage, mild anterior turbinate inflammation, no sinus tenderness, oral pharynx with postnasal drip, no cervical lymphadenopathy, lung sounds are clear, heart rates regular rate and rhythm. Plan: I suspect patient has URI. Offered COVID testing and she declined in the clinic today. Supportive measures were discussed with the patient and they voiced understanding discharge instructions and agrees to treatment plan. Return precautions reviewed Differential Diagnosis Differential Diagnosis: Differential diagnostic considerations for upper respiratory infection include upper respiratory infection, croup, otitis media, sinusitis, viral infection, bronchitis, influenza, pharyngitis, strep, uvulitis. Discharge Plan Discharge Clinical Impression: Upper respiratory infection Qualifiers: URI type: unspecified URI Qualified Code(s): J06.9 - Acute upper respiratory infection, unspecified Patient Disposition: Home Condition: Stable Instructions: Antibiotic Form, Cold Symptoms (ED) Additional Instructions: Offered Covid testing and you declined. No sign of bacterial infection in the clinic today. Lung sounds are clear. May take sugar free DayQuil/NyQuil for cold/flu symptoms. Increase fluids and stay well hydrated May take Tylenol or motrin as directed on bottle for pain/fever May use Flonase 1 spray in each nare daily May take OTC antihistamines such as Zyrtec or Claritin daily as directed on bottle May apply Vicks vapor rub to chest to open sinuses Sinus rinses for congestion Cepacol spray, cough drops, throat lozenges, warm tea with honey/lemon, gargle salt water to soothe throat BRAT diet for diarrhea Clear liquids x 24 hours then advance as tolerated for nausea/vomiting Go to the ED if you develop a worsening in your condition- high fever not controlled by Tylenol or Motrin, dehydration, weakness, lethargy, shortness of breath, or chest pain. Follow up with your PCP in 3-5 days if symptoms persist. Patient Language: Polish Prescriptions: No Action cholecalciferol (vitamin D3) [Vitamin D3] 125 mcg (5,000 unit) Tablet 125 mcg PO EVERY OTHER DAY pioglitazone 30 MG 30 mg PO DAILY lovastatin 10 mg Tablet 10 mg PO DAILY lisinopril 10 mg Tablet 10 mg PO DAILY hydrochlorothiazide 25 mg Tablet 25 mg PO DAILY cetirizine 10 mg tablet glipizide 5 mg tablet Ozempic 1 mg/dose (4 mg/3 mL) pen injector SUBCUT Follow-up/Referrals: UNKNOWN,DOCTOR [Primary Care Provider] Time of Disposition: 13:02 Quality NIHSS Nursing Documentation ED NIHSS nursing documentation: reviewed/agree
--- OUTSIDE RECORDS SUMMARY | 2025-11-12 14:15 | XMS_ITS | Clinical Summary ---
Author Organization [facility] Address [address] [place] [address] Care Team Providers Care Hand Stitcher Name Role Phone Trish Og MD Primary [...] on file Legal Sex Female 8:35 AM [employer] Gender Identity Not on file Sexual Orientation Not on file Last Filed [...] Not on file Insurance IDPA Care Teams Hand Stitcher Relationship Specialty Start Date End Date Trish Og MD PCP - General 02/13/21
--- OUTSIDE RECORDS SUMMARY | 2025-11-12 14:15 | XMS_ITS | Clinical Summary ---
Author Organization [facility] Address [address] [facility] [address], [place] [address] Phone Care Team Providers Care Director Of Nuclear Medicine Name Role Phone Lisa Porter MD Unavailable Ryan Coats MD Primary Care Provider + Allergies No known active allergies Medications lisinopril (PRINIVIL, ZESTRIL) 10 MG Tablet 8 Active hydroCHLOROthia zide 25 MG Tablet 8 Active oxybutynin (DITROPAN) 5 MG Tablet 8 Active Aspirin 81 MG Tablet Take 81 mg by mouth daily. Active ergocalciferol (VITAMIN D) 77043 UNIT Capsule 8 Active Lancets (VITALET 26 GAUGE LANCET) [facility] [place] test blood sugar once daily 5 Active [...] NEEDED 3 Active Blood Glucose Monitoring Suppl (PureshieldTouch Verio) w/Device KitIndications: Type 2 diabetes mellitus with diabetic polyneuropathy, without long-term current use of insulin 1 Kit by Does not apply route daily. Test blood glucose 1x daily. E11.42, non-insulin dependent 1 Kit 3 Active Glucose Blood (OneTouch Ultra) Strip Once a day 100 Each 3 4 Active Lancets (OneTouch Delica Plus [id number]) MiscIndications :Type 2 diabetes mellitus with diabetic [...] ciated with type 2 diabetes mellitus 01/14/2018 Family History Medical History Relation Name Comments [...] 170.2 cm (5' 7) 11/06/2024 10:34 AM FLIGHT CREW ORDNANCEMAN Body Mass Index 29.7 11/06/2024 10:34 AM FLIGHT CREW ORDNANCEMAN Plan of Treatment Upcoming Encounters Date Type Department Care Team (Late st Contact Info) Description 11/13/2025 10:30 AM FLIGHT CREW ORDNANCEMAN Office Visit [facility] - Endocrinology - [place] [address] [place] [address] Lisa Porter MD [address] [address] Health Maintenance Due Date Last Done Comments Hepatitis C Virus (HCV) Screening 1955 TdaP Immunization 1955 Pneumococcal Immunization (50+ years) (1 of 2 - PCV) 1974 Cologuard 2000 Colonoscopy 2000 Colorectal Cancer Screening 2000 Immunochemical Fecal Occult Blood 2000 Respiratory Syncytial Virus (RSV) Immunization (Adult) (1 - Risk 50-74 years 1-dose series) 2005 Zoster Immunization (1 of 2) 2005 Medicare Initial AWV [id number] 05/22/2020 Diabetes: Nephropathy Screening 04/06/2024 04/06/2023, 04/06/2023, 01/12/2023, Additional history exists Influenza Immunization (#1) 2025 SARS-COV-2 Immunization (1 - 2025-26 season) 2025 Diabetes: Hemoglobin A1c 11/07/2025 025, 02/05/2025, 11/06/2024, Additional history exists Diabetes: Eye Exam 12/26/2025 12/26/2024, 03/06/2019 Diabetes: Foot Exam 02/05/2026 02/05/2025, Mammogram 06/05/2026 06/05/2025, 02/21, 02/11/2022, Additional history exists DEXA Bone Density 06/27/2026 06/27/2024 Hepatitis B Immunization Aged Out No longer eligible based on patient's age to complete this topic Human Papillomavirus (HPV) Immunization (No Doses Required) Completed Meningococcal Immunization (ACWY) Aged Out No longer [...] DILATED EYE EXAM 12/26/2024 1 2:00 AM FLIGHT CREW ORDNANCEMAN AKHIL BONE DENSITOMETRY AXIAL SKELETON Routine 06/27/2024 1:45 PM CDT Encounter for osteoporosis screening in asymptomatic postmenopausal patient UR MICROALBUMIN/CREATIN INE RATIO RANDOM 04/06/2023 12:00 AM CDT from Last 3 Months or Most Recently Relevant to Health Maintenance Results * AKHIL SCREENING BILATERAL DIGITAL W CAD W [...] exams dated: 03/17/2024, 02/11/2022, 12/03/2020, and 11/05/2020 [facility]. BREAST TISSUE:The breasts are heterogeneously dense, [...] exam. Electronically signed by: Nhi holden/isabel:06/06/2025 10:48:48 Asphalt Paving Superintendent(s): RT Zara(R)(M), [facility] letter sent: Normal Exam Reading location: [facility] Mammogram BI-RADS: Category 2: Benign Procedure Note [...] dated: 03/17/2024, 02/11/2022, 12/03/2020[facility] BREAST TISSUE:The breasts are heterogeneously dense, which [...] signed by: Nhi Leone M.D. ab/isabel:06/06/2025 10:48:48 Asphalt Paving Superintendent(s): RT Zara(R)(M), [facility] letter sent: Normal Exam Reading location: [facility] Mammogram BI-RADS: Category 2: Benign Ryan Coats MD IMG MAMMO ORDERABLES Fin al Result * (ABNORMAL) POCT GLYCOSYLATED HEMOGLOBIN (05/08/2025 10:21 AM CDT) HGB-A1C 6.7(A) 4 - 6 % Blood 05/08/2025 10:2 1 AM CDT Lisa Porter MD POINT OF CARE TESTING (MANUAL) F inal Result * HM DILATED EYE EXAM (12/26/2024 12:00 AM FLIGHT CREW ORDNANCEMAN) 12/26/2024 us Provider Scan PROCEDURE/MINOR SURGICAL ORDERAB LES Final Result SCAN * AKHIL BONE DENSITOMETRY AXIAL SKELETON (06/27/2024 1:45 PM [...] Narrative 06/27/2024 8:34 PM CDT EXAM DESCRIPTION: AKHIL BONE DENSITOMETRY AXIAL SKELETON REASON FOR STUDY: 69 y/o year old F with given history of: Encounter for osteoporosis screening in asymptomatic postmenopausal patient 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 MF: SHOLA Report ID: [id number] Reading Location: [place] [address] IMPRESSION: Low Bone Mass. REFERENCE: Bone mineral [...] to Prevention and Treatment of Osteoporosis (http://www.nof.org/professionals/clinical-guidelines) us Guy Roche MD IMG DEXA ORDERABLES Final Re sult * UR MICROALBUMIN/CREATININE RATIO RANDOM (04/06/2023 12:00 AM CDT) ALB/CREAT RATIO 8 Normal - Normal SCAN 04/06/2023 us Provider Scan URINE ORDERABLES Final Result SCAN from Last 3 Months or Most Recently Relevant to Health Maintenance Insurance MEDICARE C [employer] Care Teams Director Of Nuclear Medicine Relationship Specialty Start Date End Date Ryan Coats MD [address] [place] [address] [address] PCP - General Family Medicine 04/18/25 Lisa Porter MD [address] [address] Consulting Physician Endocrinology 05/26/22
--- OUTSIDE RECORDS SUMMARY | 2025-11-12 14:15 | XMS_ITS | Encounter Summary ---
Author Organization [facility] Address [address] [place] [address] Phone Care Team Providers Care Stock Receiver Name Role Phone Lisa Porter MD Unavailable Ryan Coats MD Primary Care Provider + Reason for Referral * Radiology Services (Routine) - Closed Specialty Diagnoses / Procedures Referred By Dorothy noel Referred To Contact Radiology Diagnoses Encounter for screening mammogram for breast cancer Procedures AKHIL SCREENING BILATERAL DIGITAL W CAD W KILEY Ryan Coats MD [address] [place] [address] [address] SINHA [address] [place] [address] Phone: tel: fax: Referral ID Status Reason Start Date Expiration Date Visits Re quested Visits Authorized [id number] Closed 04/18/2025 1 1 Encounter Details Date Type Department Care Team (Late st Contact Info) Description 04/18/2025 Transcribe Orders [facility] [address] [place] [address] Ryan Coats MD [address] [place] [address] [address] SINHA [address] [place] [address] Encounter for screening mammogram for breast [...] st Contact Info) Description 11/13/2025 10:30 AM 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 [facility] - Endocrinology [facility] [address] [place] [address] Lisa Porter MD [address] [address] documented as of this encounter Results * [facility] SCREENING BILATERAL DIGITAL W CAD W KILEY (06/05/2025 10:55 AM CDT) Anatomical Region Laterality Modality breast Bilateral Mammography 06/05/2025 10:1 7 AM CDT Narrative 06/06/2025 12:08 PM CDT - [facility] SCREENING BILATERAL DIGITAL W CAD [...] exams dated: 03/17/2024, 02/11/2022, 12/03/2020, [facility] BREAST TISSUE:The breasts are heterogeneously dense, [...] exam. Electronically signed by: Nhi holden/penrad:06/06/2025 10:48:48 Electrical Assembly Supervisor(s): Lois Diaz RT(R)(M), [facility] letter sent: Normal Exam Reading location: [facility] Mammogram BI-RADS: Category 2: Benign Procedure [...] exams dated: 03/17/2024, 02/11/2022, 12/03/2020, and 11/05/2020 [facility]. BREAST TISSUE:The breasts are heterogeneously dense, [...] exam. Electronically signed by: Nhi holden/penrad:06/06/2025 10:48:48 Electrical Assembly Supervisor(s): Lois Diaz RT(R)(M), [facility] letter sent: Normal Exam Reading location: [place] Mammogram BI-RADS: Category 2: Benign Ryan Coats MD IMG MAMMO ORDERABLES Fin al Result documented in this encounter Visit Diagnoses Diagnosis Encounter for screening mammogram for breast cancer- Primary Encounter for screening mammogram for breast cancer documented in this encounter Care Teams Stock Receiver Relationship Specialty Start Date End Date Ryan Coats MD [address] [facility] [address] [place] [address] PCP - General Family Medicine 04/18/25 Lisa Porter MD [address] [facility] [address] [place] [address] Consulting Physician Endocrinology 05/26/22 documented as of this encounter
--- OUTSIDE RECORDS SUMMARY | 2025-11-12 14:15 | XMS_ITS | Encounter Summary ---
Author Organization [facility] Address [address] [place] [address] Phone Care Team Providers Care Learning Support Services Director Name Role Phone Trish Og MD Primary Care Provider [phone] Lisa Porter MD Unavailable Guy Roche MD Primary Care Provider [phone] Ryan Coats MD Primary Care Provider + Reason for Visit * Reason Comments Medication Refill Encounter Details Date Type Department Care Team (Late st Contact Info) Description 04/04/2023 [facility]ill [facility] - [place] [address] [place] [address] Lisa Porter MD [address] [address] Medication Refill Social History Tobacco [...] st Contact Info) Description 11/13/2025 10:30 AM 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 [facility] - Endocrinology - [place] [address] [place] [phone] Lisa Porter MD [address] [address] documented as of this encounter Visit Diagnoses Diagnosis Type 2 diabetes mellitus with diabetic polyneuropathy, without long-term current use of insulin- Primary documented in this encounter Care Teams Learning Support Services Director Relationship Specialty Start Date End Date Trish Og MD PCP - General Internal Medicine 12/09/17 03/06/24 Guy Roche MD [address] [place] [address] [address] [place] [address] PCP - General Family Medicine 03/07/24 04/17/25 Ryan Coats MD [address] [place] [address] [address] [place] [address] PCP - General Family Medicine 04/18/25 Lisa Porter MD [address]2 [facility] [address] [address] Consulting Physician Endocrinology 05/26/22 documented as of this encounter
--- OUTSIDE RECORDS SUMMARY | 2025-11-12 14:15 | XMS_ITS | Encounter Summary ---
Author Organization [facility] Address [address] [place] [address] Phone Care Team Providers Care Croze Machine Operator Name Role Phone Trish Og MD Primary Care Provider [phone] Lisa Porter MD Unavailable Guy Roche MD Primary Care Provider [phone] Ryan Coats MD Primary Care Provider + Reason for Visit * Reason Comments Medication Refill Encounter Details Date Type Department Care Team (Late st Contact Info) Description 10/18/2022 [facility]ill [facility] [address] [place] [address] Lisa Porter MD [address] [address] Medication Refill Social History Tobacco [...] Coronavirus/COVID-19? No / Unsure 10/08/2022 10:04 AM MAINFRAME DEVELOPER documented as of this encounter Miscellaneous Notes * Telephone Encounter - Tonya Nieto, RN - 10/19/2022 9:22 AM MAINFRAME DEVELOPER Requested Prescriptions Pending Prescriptions Disp Refills ??? Ozempic, 1 MG/DOSE, 4 MG/3ML Solution Pen-injector [Pharmacy Med Name: OZEMPIC 1MG PER DOSE (1X4MG PEN)] 9 mL Sig: INJECT 1 MG UNDER THE SKIN ONCE A WEEK Next appt: 01/14/2023 FRAME DEVELOPER documented in this encounter Plan of Treatment Upcoming Encounters Date Type Department Care Team (Late st Contact Info) Description 11/13/2025 10:30 AM MAINFRAME DEVELOPER Office Visit [facility] - Endocrinology - [place] [address] [place] [address] Lisa Porter MD [address] [address] documented as of this encounter Visit Diagnoses Not on filedocumented in this encounter Care Teams Croze Machine Operator Relationship Specialty Start Date End Date Trish Og MD PCP - General Internal Medicine 12/09/17 03/06/24 Guy Roche MD [address] [place] [address] PCP - General Family Medicine 03/07/24 04/17/25 Ryan Coats MD [address] [place] [address] [address] [place] [address] PCP - General Family Medicine 04/18/25 Lisa Porter MD [address]2 [facility] [address] [place] [address] Consulting Physician Endocrinology 05/26/22 documented as of this encounter
--- OUTSIDE RECORDS SUMMARY | 2025-11-12 14:15 | XMS_ITS | Data Portability ---
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 Plan of Treatment Reminders Order Date Submit Date Provider Last Modified By Organization Details Last Modified Time Details Appointments ANY 60 2024 02:00P M Maria Alejandra Paez MD Not available Not available Not available Lab lipid panel, serum 2024 025 PECULIAR [facility], [address], [place], [address], 02/04/2025 06:44:46 noninvasi ve colorecta l cancer DNA + occult blood screening , QL, stool 2024 025 PECULIAR [facility], [address], [address], [place], [address], 02/20/2025 17:49:54 CMP, serum or plasma 2024 025 SOCORRO [facility], [address], [place], [address], 02/04/2025 06:44:48 CMP, serum or plasma 2023 024 PECULIAR [facility], [address], [place], [address], 03/21/2024 10:13:19 albumin/c reatinine , mass ratio, urine 2023 PECULIAR [facility], [address], [place], [address], 03/21/2024 10:13:18 Referral None recorded. Procedures None recorded. Surgeries None recorded. Imaging DEXA, axial skeleton + vertebral fracture assessmen t 2023 [facility] ([facility]) Scheduling, [address] [place], [address], 06/27/2024 21:36:54 MAMMO, screening , digital, bilateral 2023 [facility] ([facility]) Scheduling, [address] [place], [address], 03/20/2024 13:39:29 Medication Orders Ozempic 2 mg/dose (8 mg/3 mL) subcutane ous pen injector [id number] [address] [facility], [place], [place], [id number], 08/14/2025 11:53:12 Patient TargetsNo targets recorded. Patient Instructions Encounter Date Encounter Id Patient Instructions Last Modified By Organization Details Last Modified Time 01/03/2024 [id number] mammogram: about this test ssuthan Not available 01/03/2024 11:49:41 A healthy lifestyle: care instructions ssuthan Not available 01/03/2024 11:49:41 high cholesterol : care instructions ssuthan Not available 01/03/2024 11:49:41 learning about type 2 diabetes ssuthan Not available 01/03/2024 11:49:41 type 2 diabetes: care instructions ssuthan Not available 01/03/2024 11:49:41 learning about high blood pressure ssuthan Not available 01/03/2024 11:49:41 03/20/2024 [id number] Attending Physician Addendum I did not personally see or examine the patient with the resident. I was physically present to provide indirect supervision through entire encounter. I have reviewed the documentation and agree with the history, physical findings, work-up, and medical decision making as recorded. Kenya Corley MD [email or web address] Not available 03/24/2024 18:09:55 02/02/2025 [id number] learning about type 2 diabetes dshehata Not [...] reyna [email or web address] Not available 02/05/2025 17:02:53 05/07/2025 [id number] advance care planning: care instructions dshehata Not available 05/07/2025 11:34:41 preventing falls : care instructions dshehata Not available 05/07/2025 11:34:42 Quitting Tobacco : Care Instructions dshehata Not available 05/07/2025 11:34:42 [facility] Preventive Checklist dshehata Not available 05/07/2025 11:34:42 eating healthy foods: care instructions dshehata Not available 05/07/2025 11:34:41 AD8 Dementia Screening Interview dshehata Not available 05/07/2025 11:34:42 I was present in the clinic to discuss this patient at the time of the visit. I agree with the documented assessment and plan Enrrique Montalvo MD [email or web address] Not available 05/07/2025 11:55:05 08/14/2025 [id number] A healthy lifestyle: care instructions Not available [...] 60.1 mg/dL notest ab. Not Available [facility] ([facility]) [address] [place], [address], 03/21/2024 10:13:18 03/20/20 24 03/21/2024 ALBUM IN/CR EATIN INE RATIO ,URIN E albumin, urine <3.0 ug/mL notest ab. Not Available [facility] ([facility]) [address] [place], [address], 03/21/2024 10:13:18 03/20/20 24 03/21/2024 ALBUM IN/CR EATIN INE RATIO ,URIN E alb/creat ratio <5 Brittney l: 0 - 29 Moder ately incre ased: 30 - 300 Sever ramiro incre ased: >300 Not Available [facility] ([facility]) [address] [place], [address], 03/21/2024 10:13:18 03/20/2003/21/2024 COMP. METAB OLIC PANEL (14) glucose 137 mg/dL 70-99 above high normal Not Available [facility] ([facility]) [address] [place], [address], 03/21/2024 10:13:18 03/20/20 24 03/21/2024 COMP. METAB OLIC PANEL (14) BUN 19 mg/dL 8-27 Not Available [facility] ([facility]) [address] [place], [address], 03/21/2024 10:13:18 04/29/20 24 03/21/2024 COMP. METAB OLIC PANEL (14) creatinine 0.84 mg/dL 0.57-1 .00 Not Available [facility] ([facility]) [address] [facility], [place], [address], 03/21/2024 10:13:18 03/20/20 24 03/21/2024 COMP. METAB OLIC PANEL (14) eGFR 75 mL/mi n/1.7 3 >59 Not Available [facility] ([facility]) [address] [facility], [place], [address], 03/21/2024 10:13:18 03/20/20 24 03/21/2024 COMP. METAB OLIC PANEL (14) BUN/creatini ne ratio 23 12-28 Not Available [facility] ([facility]) [address] [facility], [place], [address], 03/21/2024 10:13:18 03/20/20 24 03/21/2024 COMP. METAB OLIC PANEL (14) sodium 139 mmol/ L 134-14 4 Not Available [facility] ([facility]) [address] [place], [address], 03/21/2024 10:13:18 03/20/20 24 03/21/2024 COMP. METAB OLIC PANEL (14) potassium 3.7 mmol/ L 3.5-5. 2 Not Available [facility] ([facility]) [address] [facility], [place], [address], 03/21/2024 10:13:18 03/20/20 24 03/21/2024 COMP. METAB OLIC PANEL (14) chloride 98 mmol/ L 96-106 Not Available [facility] ([facility]) [address] [place], [address], 03/21/2024 10:13:18 03/20/20 24 03/21/2024 COMP. METAB OLIC PANEL (14) carbon dioxide, total 26 mmol/ L 20-29 Not Available [facility] ([facility]) [address] [facility], [place], [address], 03/21/2024 10:13:18 03/20/20 24 03/21/2024 COMP. METAB OLIC PANEL (14) calcium 9.4 mg/dL 8.7-10 .3 Not Available [facility] ([facility]) [address] [facility], [place], [address], 03/21/2024 10:13:18 03/20/20 24 03/21/2024 COMP. METAB OLIC PANEL (14) protein, total 6.9 g/dL 6.0-8. 5 Not Available [facility] ([facility]) [address] [facility], [place], [address], 03/21/2024 10:13:18 03/20/20 24 03/21/2024 COMP. METAB OLIC PANEL (14) albumin 4.3 g/dL 3.9-4. 9 Not Available [facility] ([facility]) [address] [facility], [place], [address], 03/21/2024 10:13:18 03/20/20 24 03/21/2024 COMP. METAB OLIC PANEL (14) globulin, total 2.6 g/dL 1.5-4. 5 Not Available [facility] ([facility]) [address] [facility], [place], [address], 03/21/2024 10:13:18 03/20/20 24 03/21/2024 COMP. METAB OLIC PANEL (14) A/G ratio 1.7 1.2-2. 2 Not Available [facility] ([facility]) [address] [facility] [place], [address], 03/21/2024 10:13:18 03/20/20 24 03/21/2024 COMP. METAB OLIC PANEL (14) bilirubin, total 0.5 mg/dL 0.0-1. 2 Not Available [facility] ([facility]) [address] [facility], [place], [address], 03/21/2024 10:13:18 03/20/20 24 03/21/2024 COMP. METAB OLIC PANEL (14) alkaline phosphatase 78 IU/L 44-121 Not Available [facility] ([facility]) [address] [facility], [place], [address], 03/21/2024 10:13:18 03/20/20 24 03/21/2024 COMP. METAB OLIC PANEL (14) AST (SGOT) 13 IU/L 0-40 Not Available [facility] ([facility]) [address] [facility], [place], [address], 03/21/2024 10:13:18 03/20/20 24 03/21/2024 COMP. METAB OLIC PANEL (14) ALT (SGPT) 12 IU/L 0-32 Not Available [facility] ([facility]) [address] [facility], [place], [address], 03/21/2024 10:13:18 08/07/20 24 08/07/2024 Hemog lobin [...] 177 mg/dL 100-19 9 Not Available [facility] ([facility]) [address] [place], [address], 02/04/2025 06:44:46 02/03/20 25 02/04/2025 LIPID PANEL triglyceride s 94 mg/dL 0-149 Not Available [facility] ([facility]) [address] [place], [address], 02/04/2025 06:44:46 02/03/20 25 02/04/2025 LIPID PANEL HDL cholesterol 67 mg/dL >39 Not Available [facility] ([facility]) [address] [place], [address], 02/04/2025 06:44:46 02/03/20 25 02/04/2025 LIPID PANEL VLDL cholesterol jd 17 mg/dL 5-40 Not Available [facility] ([facility]) [address] [place], [address], 02/04/2025 06:44:46 02/03/20 25 02/04/2025 LIPID PANEL LDL chol calc ([facility]) 93 mg/dL 0-99 Not Available [facility] ([facility]) [address] [place], [address], 02/04/2025 06:44:46 02/03/20 25 02/04/2025 COMP. METAB OLIC PANEL (14) glucose 156 mg/dL 70-99 above high normal Not Available [facility] ([facility]) [address] [place], [address], 02/04/2025 06:44:48 02/03/20 25 02/04/2025 COMP. METAB OLIC PANEL (14) BUN 17 mg/dL 8-27 Not Available [facility] ([facility]) [address] [facility] [place], [address], 02/04/2025 06:44:48 02/03/20 25 02/04/2025 COMP. METAB OLIC PANEL (14) creatinine 0.89 mg/dL 0.57-1 .00 Not Available [facility] ([facility]) [address] [facility] [place], [address], 02/04/2025 06:44:48 02/03/20 25 02/04/2025 COMP. METAB OLIC PANEL (14) eGFR 70 mL/mi n/1.7 3 >59 Not Available [facility] ([facility]) [address] [facility] [place], [address], 02/04/2025 06:44:48 02/03/20 25 02/04/2025 COMP. METAB OLIC PANEL (14) BUN/creatini ne ratio 19 12-28 Not Available [facility] ([facility]) [address] [facility] [place], [address], 02/04/2025 06:44:48 02/03/20 25 02/04/2025 COMP. METAB OLIC PANEL (14) sodium 137 mmol/ L 134-14 4 Not Available [facility] ([facility]) [address] [place], [address], 02/04/2025 06:44:48 02/03/20 25 02/04/2025 COMP. METAB OLIC PANEL (14) potassium 3.4 mmol/ L 3.5-5. 2 below low normal Not Available [facility] ([facility]) [address] [place], [address], 02/04/2025 06:44:48 02/03/20 25 02/04/2025 COMP. METAB OLIC PANEL (14) chloride 95 mmol/ L 96-106 below low normal Not Available [facility] ([facility]) [address] [place], [address], 02/04/2025 06:44:48 02/03/20 25 02/04/2025 COMP. METAB OLIC PANEL (14) carbon dioxide, total 24 mmol/ L Not Available [facility] ([facility]) [address] [place], [address], 02/04/2025 06:44:48 02/03/20 25 02/04/2025 COMP. METAB OLIC PANEL (14) calcium 9.7 mg/dL 8.7-10 .3 Not Available [facility] ([facility]) [address] [place], [address], 02/04/2025 06:44:48 02/03/20 25 02/04/2025 COMP. METAB OLIC PANEL (14) protein, total 7.0 g/dL 6.0-8. 5 Not Available [facility] ([facility]) [address] [place], [address], 02/04/2025 06:44:48 02/03/20 25 02/04/2025 COMP. METAB OLIC PANEL (14) albumin 4.3 g/dL 3.9-4. 9 Not Available [facility] ([facility]) [address] [place], [address], 02/04/2025 06:44:48 02/03/20 25 02/04/2025 COMP. METAB OLIC PANEL (14) globulin, total 2.7 g/dL 1.5-4. 5 Not Available [facility] ([facility]) [address] [place], [address], 02/04/2025 06:44:48 02/03/20 25 02/04/2025 COMP. METAB OLIC PANEL (14) bilirubin, total 0.5 mg/dL 0.0-1. 2 Not Available [facility] ([facility]) [address] [place], [address], 02/04/2025 06:44:48 02/03/20 25 02/04/2025 COMP. METAB OLIC PANEL (14) alkaline phosphatase 81 IU/L 44-121 Not Available [facility] ([facility]) [address] [facility], [place], [address], 02/04/2025 06:44:48 02/03/20 25 02/04/2025 COMP. METAB OLIC PANEL (14) AST (SGOT) 16 IU/L 0-40 Not Available [facility] ([facility]) [address] [facility], [place], [address], 02/04/2025 06:44:48 02/03/20 25 02/04/2025 COMP. METAB OLIC PANEL (14) ALT (SGPT) 10 IU/L 0-32 Not Available [facility] ([facility]) [address] [place], [address], 02/04/2025 06:44:48 02/06/20 25 02/05/2025 Hemog lobin [...] Abnorm al Not Available Not Available 14:34:59 02/17/20 25 02/16/2025 COLOG UARD cologuard result reportable NEGATI VE negati ve normal NEGAT RUI TEST RESUL T. A negat rui Colog uard resul t indic ates a low likel ihood that a color ectal cance r (CRC) or advan natividad adeno ma (hamzah omato us polyp s with more advan natividad pre-m align ant featu res) is prese nt. The [facility] e that a perso n with a [...] of 10,00 0 indiv idual s at [facility] risk for color ectal cance r who were scree germain with both Colog uard and colon oscop y. (Impe anish Gonzalez et al, N Engl J Med 2014; 370(1 4):12 86-12 97) The brittney l value (refe rence range ) for this assay is negat rui. COLOG UARD RE-SC DANIEL GAMEZ RECOM MENDA TION: Perio dic color ectal cance r scree fred is an impor tant part of preve ntive healt hcare for asymp tomat ic indiv idual s at [facility] ge risk for color ectal cance r. Follo wing a negat rui Colog uard resul t, the Ameri can Cance r Socie ty and U.S. Multi -Soci ety Task Force scree fred guide lines recom mend a Colog uard re-sc daniel gamez inter dominga of 3 years . Refer [...] ectal Cance r Scree fred , Perry peraltantirene rolog y 2017; 112:1 016-1 030. TEST DESCR IPTIO N: [place] site algor ithmi c karthik sis of stool DNA-b karyn amaro with hemog lobin immun oassa y. Quant itati ve value s of indiv idual bioma rkers are not repor table and are not assoc iated with indiv idual bioma rker resul t refer ence range s. Colog uard is inten ded for color ectal cance r scree fred of adult s of eithe r sex, 45 years or older , who are at [facility] for color ectal cance r (CRC) . Colog uard has been appro mariia for use by the U.S. FDA. The perfo rmanc e of Colog uard was estab lishe d in a cross secti onal study of [facility] adult s aged 50-84 . Colog uard perfo rmanc e in patie nts ages 45 to 49 years was estim ated by pamela-jerry miller karthik sis of near- age group s. Colon oscop ies perfo rmed for a posit rui resul t may find as the most clini augustine signi ficfausto t lesio n: color ectal cance r [...] of 10,00 0 indiv idual s at [facility] risk for color ectal cance r who were scree germain with both Colog uard and colon oscop y. (Douglas Eduardo al, N Engl J Med 2014; 370(1 [...] wing locat ion: www.e xactl abs.c om/re sults . Addit ional descr iptio n of the Colog uard test proce ss, warni ngs and preca ution s can be found at www.c ologu liang.c om. Not Available [facility] [address], [place], [address], 02/20/2025 17:49:54 02/28/20 25 02/28/2025 POTAS SIUM potassium 3.6 mmol/ L 3.5-5. 2 Not Available [facility] ([facility]) [address], [place], [address], 02/28/2025 06:48:07 05/08/20 25 05/08/2025 Hemog lobin [...] eral No observ ation record ed. etodaroma [facility] [address] [place], [address], 03/24/2024 09:53:39 06/27/20 24 06/27/2024 DEXA, axial skele ton + verte bral fract ure asses sment No observ ation record ed. dshehata [facility] [address] [place], [address], 06/28/2024 15:12:45 06/27/20 24 06/27/2024 imagi ng inter preta tion No observ ation record ed. etodaroma [facility] ([facility]) [address] [place], [address], 07/07/2024 16:46:21 06/06/20 25 06/05/2025 MAMMO , scree fred, digit al, bilat eral No observ ation record ed. smarshallma [facility] ([facility]) [address] [place], [address], 06/08/2025 16:10:32 Result Notes None recorded. Problems Name Problem SNOMED Code Status Onset Date Resolution Date Notes Provider Name and Address Organization Details Recorded Time Type 2 diabetes mellitus 24464401 Active 2016 Ryan Coast MD Attn: Accounting, [address] [place], [address], [facility] 5 11:24:37 Essential hypertens ion 08283666 Active 2016 Ryan Coats MD Attn: Accounting, [address] [place], [address], [facility] 5 11:24:24 History of varicose veins 956368397 Active 2016 Not Available [facility] 3 07:33:44 Pure hyperchol esterolem ia 948244290 Active 2017 Enrrique Montalvo MD Attn: Accounting, [address] [place], [address], [facility] 5 11:50:48 Vitamin D deficienc y 26964622 Completed 201701/18/2020 Trish Og MD Attn: Accounting, [address] [place], [address], [facility] 0 12:08:53 Generaliz ed anxiety disorder 07482354 Completed 201709/13/2018 Trish Og MD Attn: Accounting, [address] [facility], [place], [address], [place] [facility] 8 16:51:23 Obesity 462327070 Completed 201709/13/2018 Trish Og MD Attn: Accounting, [address] [facility], [place], [address], [place] [facility] 2 10:32:09 Thoracic back pain 973678630 Completed 201701/18/2020 Trish Og MD Attn: Accounting, [address] [facility], [place], [address], [place] [facility] 0 10:28:43 Body mass index 30+ - obesity 230101947 Active 2017 Not Available [facility] 3 07:33:44 Posterior rhinorrhe a 79790304 Active 2018 Not Available [facility] 3 07:33:44 Multinodu lar goiter 825539384 Active 2020 Not Available [facility] 3 07:33:44 Overactiv e urinary bladder 473041457 Active 2021 Not Available [facility] 3 07:33:44 Obesity 753426220 Active 2021 Not Available [facility] 3 07:33:44 Occult blood detected in feces 97371499 Active 2021 Not Available [facility] 3 07:33:44 Varicose veins of lower extremity 53126483 Active 2021 Not Available [facility] 3 07:33:44 Postmenop ausal state 29723082 Active 2022 Not Available [facility] 3 07:33:44 Hypokalem ia 58546059 Active 2024 Ryan Coats MD Attn: Accounting, [address] [facility], [place], [address], [facility] 5 09:54:27 Problem Notes None recorded. Procedures Surgical History Date Name Laterality Status Provider Name and Address Organization Details Recorded Time Tubal Ligation completed SAMIRA Sapp [facility] 09/27/2017 11:25:56 Breast Surgery completed SAMIRA Sapp [facility] 09/27/2017 11:26:03 Imaging Results None recorded. Procedure Notes None recorded. Medical Equipment None Reported. Allergies Allergen ID Allergen Name Allergen Category Reaction Reaction Severity Criticality Documentation Date Start Date Code Code System Note Provider Name and Address Organization Details Recorded Time 504036 No known allergy (situatio n) Not available Not available Not available Not available 06/05/2021 98907 6003 SNSAMIRA Duff [facility] 5 10:34:50 No known drug allergies Medications [...] 1 TABLET BY MOUTH EVERY DAY NEEDED active Not Available Not Available No t [...] tablet TAKE 1 TABLET BY MOUTH DAILY DIRECTED active Not Available Not Available No t Available Banophen 25 mg capsule 02/03 completed Not Available Not Available Not Available hydroxyzi ne HCl 25 mg tablet TK 1 T PO BID PRN 02/03 completed Not Available Not Available Not [...] Not Available Not Available Not Available levofloxa viri 500 mg tablet 05/13 completed Not Available [...] completed Not Available Not Available Not Available cefdinir 300 mg capsule TAKE 1 CAPSULE BY MOUTH EVERY 12 HOURS 11/10 completed Not Available Not Available Not Available [...] subcutane ous pen injector INJECT 1 MG SUBCUTAN EOUSLY ONCE WEEKLY active Not Available Not Available No t Available Rashaun COVID-19 Home Test kit Check as directed 08/16 [...] Updated DateTime 4 170.18 cm 27.3 kg/m2 29144.5 1 g 65 /min 14 /min 96.9 [degF] 117/65 mm[Hg] Enedina Morrow MA [facility] 4 11:07:52 Date Recorded Body height Body mass index (BMI) Body weight Body temperature Heart rate Respiratory rate Systolic And Diastolic Provider Name and Address Organization Details Last Updated DateTime 5 170.18 cm 30.3 kg/m2 50628.0 8 g 98.3 [degF] 84 /min 18 /min 128/80 mm[Hg] Tana Mercado MA [facility] 5 11:12:29 Date Recorded Body height Body temperature Heart rate Oxygen saturation Respiratory rate Body mass index (BMI) Body weight Systolic And Diastolic Provider Name and Address Organization Details Last Updated DateTime 4 170.18 cm 97.3 [degF] 65 /min 99 % 16 /min 29 kg/m2 41262.2 9 g 137/77 mm[Hg] Jeana Cunningham MA [facility] 4 11:33:31 Date Recorded Body height Body mass index (BMI) Body weight Respiratory rate Body temperature Oxygen saturation Heart rate Systolic And Diastolic Provider Name and Address Organization Details Last Updated DateTime 5 170.18 cm 29.6 kg/m2 85219.1 3 g 20 /min 98.2 [degF] 98 % 80 /min 112/72 mm[Hg] SAMIRA Sinha [facility] 5 10:58:06 Date Recorded Body height Body mass index (BMI) Body weight Heart rate Body temperature Respiratory rate Oxygen saturation Systolic And Diastolic Provider Name and Address Organization Details Last Updated DateTime 5 170.18 cm 29 kg/m2 23088.5 9 g 77 /min 98 [degF] 16 /min 99 % 108/73 mm[Hg] Jeana Cunningham MA [facility] 5 11:57:17 Social History Question Answer Notes LastModified by Organizat ion Details LastModified Time Tobacco Smoking Status Never Smoker SAMIRA Sapp, [facility] 06/17/2018 11:29:06 Do You Have An Advance [...] 7 Days, How Much Pain Have You [place]? None Information not available 05/07/2025 In General, Would You Say You Health Is: Good Information not available 05/07/2025 Each Night, How Many Hours Of Sleep Do You Get? 8 Information no t available 05/07/2025 In The Past 7 Days, How Often Have You [place] Sleepy In The Daytime? Rarely Information not [...] anxious, or unable to sleep at night)? [id number] Information not available 07/07/2021 Family History Relationship Description Onset Age of this Age Resolved Age Notes LastModified by Organization Details LastModified Time Mother Dementia [email or web address] Not availa ble 09/27/2017 11:24:43 Mother Hypertensive disorder [email or web address] Not available 04/2017 11:25:03 Brother Hypertensive disorder [email or web address] Not available 04/2017 11:25:03 Notes:05/07/25 Medical History Condition Response Coronary Artery Disease N Other N High Blood Pressure Y Atrial Fibrillation N Kidney or Bladder Problems N Thyroid Problems N GI Problems N Depression N COPD N Blood Clots N Have you had a mammogram in the last yea r? N Skin Problems N Anemia N Heart Attack ([place]) N Anxiety Disorder N Diabetes Y Muscle, [...] ICD10 Code Diagnosis IMO Codes Diagnosis Note [id number] MD Franko Shipman ([facility]) [address] [place] [address] 09/27/2017 10:47:56 09/29/2017 11:38:30 Type 2 diabetes mellitus 78059684 E11.9 Home BS fairly controlled .Ct with diet control and exercise, medication as prescribed F/u with eye and foot providersC heck BS at least once/day at home before meal/bedti me Essential hypertension 09542200 I10 Controlled . Ct same with low salt diet Overweight 358574126 E66 .3 Recommend to loose weight with diet control and exercise. Screening for malignant neoplasm of colon 452470285 Z12.11 Refuses colonoscop y Health liliam ntenance alteration 21705213 Z78.9 Baseline labs History of varicose veins 332635990 Z86.79 Had surgery before. Using tika hose while on her feet. [id number] Mandy Morales MD [facility] ([facility]) [address] [place] [address] [facility] [address] [place] [address] 10/08/2017 10:38:42 10/20/2017 08:43:22 Gynecologic examination 23477697 Z01.419 Safe sex counseling was done. Patient was advised against the use of alcohol, tobacco and drugs. BSE was reviewed and recommende d. Will obtain last mammogram record. Fecal occult blood testing was ordered. Will do DEXA scan at 65. Bladder mu scle dysfunction - overactive 129979783 N32.81 Will send rx fo oxybutynin to the pharmacy. [id number] MD Franko Shipman (Fam Med) [address] [place] [address] 11/03/2017 09:49:32 11/23/2017 11:13:58 Acute upper respiratory infection 16386721 J06.9 Hydrate well. Use humidifier Take medication as prescribed , If getting worse come in / go to [facility] to [facility] with OTC robitussin you bought before. [id number] MD Franko Shipman (Fam Med) [address] [place] [address] 12/07/2017 10:45:01 12/07/2017 14:30:20 Type 2 diabetes mellitus 30839740 E11.9 Home BS fairly controlled .Ct with [...] in 2 wks.diet control emphasized .Refer to Project Management Advisor . Essential hypertension 14807602 I10 Controlled [address] Ct same with low salt diet Varicose v eins of lower extremity 82990609 I83.893 Had stripping 10-15 yrg ago, bothering lately.Ct with support hose. refer Generalize d anxiety disorder 21061069 F41.1 Empiricall y try fluoxetine 20mg daily, aware if weird dream/suic idal thoughts to stop and call the office. Vitamin D deficiency 347 93529 E55.9 weekly Vit D for 8 wks sent. Pure hypercholesterolemia 632231435 E78.00 LDL 110. Started on lovastatin and low cholestrol diet emphasized . [id number] MD Franko Shipman [facility] (Fam Med) [address] [place] [address] 03/07/2018 10:32:17 03/07/2018 13:55:47 Type 2 diabetes mellitus 26286059 E11.9 Home BS fairly controlled .Ct with [...] in 2 wks.diet control emphasized .Refer to Project Management Advisor . Addendum 03/07/18Hom e BS lot better. Ct same with diet control and exercise. Essential hypertension 47249579 I10 Controlled . Ct same with low salt diet Generalize d anxiety disorder 03554431 F41.1 Empiricall y try fluoxetine 20mg daily, aware if weird dream/suic idal thoughts to stop and call the office. Addendum 03/07/18ym ptomatical y lot better, not started the medication . Pure hypercholesterolemia 406894910 E78.00 LDL 110. Started on lovastatin and low cholestrol diet emphasized . History of varicose veins 658018018 Z86.79 Had surgery before. Using tika hose while on her feet. Vitamin D deficiency 347 23191 E55.9 check level Obesity 838168170 E66.9 Recommend to loose weight with diet control and exercise. Screening mammography 24 919371 Z12.31 [id number] MD Franko Shipman [address] [facility] [place] [address] 04/04/2018 10:39:22 04/04/2018 12:19:40 Acute upper respiratory infection 41594459 J06.9 Hydrate well. Use humidifier Take medication as prescribed , If getting worse come in / go to [facility] to [facility] with OTC robitussin you bought before. [id number] MD Franko Shipman [address] [facility] [place] [address] 05/13/2018 10:35:58 05/13/2018 17:33:56 Type 2 diabetes mellitus 69626015 E11.9 Home BS fairly controlled .Ct with [...] in 2 wks.diet control emphasized .Refer to Project Management Advisor . Addendum 03/07/18Hom e BS lot better. Ct same with diet control and exercise. Addendum 05/13/18A1c 8.2Increas e alogliptin to 25mg daily.Ct with diet control and exercise, medication as prescribed F/u with eye and foot providersC heck BS at least once/day at home before meal/bedti me Essential hypertension 00358012 I10 [address] Ct same with low salt diet Generalize d anxiety disorder 45238385 F41.1 Empiricall y try fluoxetine 20mg daily, aware if weird dream/suic idal thoughts to stop and call the office. Addendum 05/13/18ym ptomatical ly lot better, not started the medication . Pure hypercholesterolemia 768755060 E78.00 LDL 84.Low cholestrol diet emphasised Ct medication as prescribed Obesity 380078718 E66.9 Recommend to loose weight with diet control and exercise. History of varicose veins 760304212 Z86.79 Had surgery before. Using tika hose while on her feet.Adden dum 05/13/18 Wearing tika hose, feels better, no cramps lately Bladder mu scle dysfunction - overactive 042078280 N32.81 Under care by , on oxybutynin daily, recommende d Kegel exercise. Vitamin D deficiency 347 09436 E55.9 Take daily vit D 3 100units. [id number] MD Franko ANAYA [address] [facility] [address] 06/02/2018 14:34:14 06/14/2018 09:34:12 Thoracic back pain 039328266 M54.6 Vague history. DM, HTN. SBP on different arms ok. Evaluate for ACS, pancreatit is. Atypical chest pain 1025 95333 R07.89 Differenti als - Costochond ritis, pneumonia. CXR to evaluate. [id number] MD Franko Shipman [address] [facility] [address] [place] [address] 06/17/2018 11:04:02 06/20/2018 09:42:23 Pure hypercholesterolemia 936405811 E78.00 LDL 84.Low cholestrol diet emphasised Ct medication as prescribed Type 2 uri betes mellitus 38462997 E11.9 Home BS fairly controlled .Ct with [...] in 2 wks.diet control emphasized .Refer to Project Management Advisor . Addendum 03/07/18Hom e BS lot better. [...] at home before meal/bedti me Essential hypertension 39546174 I10 [address] same with low salt diet Generalize d anxiety disorder 48336182 F41.1 Empiricall y try fluoxetine 20mg daily, aware if weird dream/suic idal thoughts to stop and call the office. Addendum 06/17/18ym ptomatical ly lot better, not started the medication . Bladder mu scle dysfunction - overactive 826193083 N32.81 Under care by , on oxybutynin daily, recommende d Kegel exercise. Obesity 688735473 E66.9 Recommend to loose weight with diet control and exercise. Strain of right trapezius muscle 2444487244 5853854 S29.012D On & off issue. Do stretching exercise.B nalini now [id number] MD Franko Shipman [address] [facility] [place] [address] 07/01/2018 13:57:33 07/06/2018 16:45:53 Contact dermatitis 54922261 L25.9 Probably due to sumac.Use the cream, Avoid exposureIf no better in few days / getting worse, come in / go to ER. [id number] MD Franko Shipman [address] [facility] [place] [address] 09/13/2018 15:53:45 09/14/2018 14:43:53 Essential hypertension 31821013 I10 [address]rolled [address] Ct same with low salt diet Type 2 uri betes mellitus 80098612 E11.9 Home BS fairly controlled .Ct with diet control and exercise, medication as prescribed F/u with eye and foot providersC heck BS at least once/day at home before meal/bedti me Pure hypercholesterolemia 656399822 E78.00 LDL 84.Low cholestrol diet emphasised Ct medication as prescribed Bladder mu scle dysfunction - overactive 512443075 N32.81 Under care by , on oxybutynin daily, recommende d Kegel exercise. Body mass index 30+ - obesity 708624562 Z68.39 Recommend to loose weight with diet control and exercise. Vitamin D deficiency 347 49415 E55.9 check level [id number] MD Franko Shipman [address] [facility] [place] [address] 09/22/2018 10:22:54 09/22/2018 15:43:11 Type 2 diabetes mellitus 50343384 E11.9 Home BS fairly controlled .Ct with diet control and exercise, medication as prescribed F/u with eye and foot providersC heck BS at least once/day at home before meal/bedti meAddendum 09/22/18A1c 8.1Agree to try metformin ER 500mg 2 in the morning and repeat A1c in 3 months before next visit. Recommende d diet control and exercise. [id number] MD Franko Shipman [address] [facility] [place] [address] 10/10/2018 15:01:48 10/11/2018 17:25:04 [place] eye disease 095629735 H10.89 Use the medication , If getting worse go to ER. [id number] MD Franko Shipman [address] [place] [address] 12/21/2018 14:38:45 12/22/2018 10:44:34 Type 2 diabetes mellitus 22219722 E11.9 Home BS fairly controlled .Ct with [...] Check A1c by next visit. Essential hypertension 81975552 I10 [address] same with low salt diet Pure hypercholesterolemia 187671251 E78.00 LDL 84.Low cholestrol diet emphasised Ct medication as prescribed Body mass index 30+ - obesity 483733461 Z68.39 Recommend to loose weight with diet control and exercise. Bladder mu scle dysfunction - overactive 861302363 N32.81 Under care by , on oxybutynin daily, recommende d Kegel exercise. Posterior rhinorrhea 758 10176 R09.82 Avoid known allergens. Taking loratadine PRN [id number] MD Franko Shipman [address] [place] [address] 03/20/2019 11:27:39 03/21/2019 10:03:49 Type 2 diabetes mellitus 77521624 E11.9 Home BS fairly controlled .Ct with [...] with morning mealStop soda/yovany lates Essential hypertension 66444865 I10 [address]rolled [address] Ct same with low salt diet Pure hypercholesterolemia 319731857 E78.00 Low cholestrol diet emphasised Ct medication as prescribed Body mass index 30+ - obesity 187930197 Z68.39 Recommend to loose weight with diet control and exercise. Bladder mu scle dysfunction - overactive 774239568 N32.81 Under care by , on oxybutynin daily, recommende d Kegel exercise. Vitamin D deficiency 347 14763 E55.9 check level Screening for malignant neoplasm of colon 837362446 Z12.11 Refuses colonoscop y [id number] MD Franko Shipman [address] [facility] [address] [address] 07/06/2019 09:59:05 07/07/2019 11:43:02 Pure hypercholesterolemia 600720892 E78.00 Low cholestrol diet emphasised Ct medication as prescribed Type 2 uri betes mellitus 98061124 E11.9 03/20/19A1c 8.9- pt refuses to be on insulin/an y type of shots- agree to see Endo and nutritinis t, will refer.Add Farxiga 5mg daily with morning mealStop soda/yovany lates 07/06/19Did see Dr.TaeHome DEVLIN [facility] k A1c today- 6.6 Essential hypertension 88843686 I10 Controlled . Ct same with low salt diet Body mass index 30+ - obesity 869442420 Z68.39 Recommend to loose weight with diet control and exercise. Bladder mu scle dysfunction - overactive 846320992 N32.81 Under care by , on oxybutynin daily, recommende d Kegel exercise. Screening for malignant neoplasm of colon 927713639 Z12.11 Refuses colonoscop y History of varicose veins 531664729 Z86.79 Had surgery before. Using tika hose while on her feet.Adden dum 05/13/18 Wearing tika hose, feels better, no cramps lately 07/06/19Not wearing stockings. [id number] MD Franko Shipman [address] [facility] [place] [address] 08/02/2019 11:19:10 08/03/2019 12:10:53 Conjunctivitis 2356029 H10.9 Use the eye drops. If no better call/ go to ER [id number] MD Franko Shipman [address] [facility] [place] [address] 10/06/2019 10:35:07 10/09/2019 11:38:41 Essential hypertension 87735702 I10 Controlled . Ct same with low salt diet Type 2 uri betes mellitus 34385328 E11.9 07/06/19 Did see BS betterChec k A1c today- 6.6 10/06/19 On alogliptin and glyburide 5 of 2 tabs BID per the EndoContro l BS better Pure hypercholesterolemia 619609544 E78.00 Low cholestrol diet emphasised Ct medication as prescribed Body mass index 30+ - obesity 687950442 Z68.39 Recommend to loose weight with diet control and exercise. Bladder mu scle dysfunction - overactive 891872024 N32.81 Under care by , on oxybutynin daily, recommende d Kegel exercise. Vitamin D deficiency 347 51613 E55.9 check level [id number] MD Franko Shipman [address] [facility] [place] [address] 11/28/2019 11:30:06 11/29/2019 12:28:19 Acute gingivitis 82385128 K05.00 recommend to f/u with your dentist.Am oxilOral care recommende d.Note for jury duty given Please excuse the above patient from jury duty as she cannot stay longer at a place for a long time, had to use bathroom frequently ' [id number] MD Franko Shipman [address] [facility] [place] [address] 01/18/2020 10:19:51 01/19/2020 08:55:31 Essential hypertension 20108615 I10 [address]rolled [address] same with low salt diet Type 2 uri betes mellitus 11889264 E11.9 10/06/19 On alogliptin and glyburide 5 of 2 tabs BID per the EndoContro l BS better 01/18/20Und er care by A1c was 7.1recomme nd to control BS better.f/u with your eye provider too yearly Pure hypercholesterolemia 874501587 E78.00 Low cholestrol diet emphasised Ct medication as prescribed Bladder mu scle dysfunction - overactive 147455500 N32.81 Under care by , on oxybutynin daily before recommende d Kegel exercise. Body mass index 30+ - obesity 735081282 Z68.39 Recommend to loose weight with diet control and exercise. [id number] MD Franko Shipman [address] [facility] [place] [address] 04/18/2020 08:40:46 04/19/2020 07:33:11 Essential hypertension 72582947 I10 Clinically feels well.Ct same with low salt diet Type 2 uri betes mellitus 00552103 E11.9 10/06/19 On alogliptin and glyburide 5 of 2 tabs BID per the EndoContro l BS better 01/18/20Und er care by A1c was 7.1recomme nd to control BS better.f/u with your eye provider too yearly04/18Home BS improving. Does see Pure hypercholesterolemia 741213563 E78.00 Low cholestrol diet emphasised Ct medication as prescribed Bladder mu scle dysfunction - overactive 837586729 N32.81 Under care by , on oxybutynin daily before recommende d Kegel exercise.Feel s well clinically . [id number] MD Franko Shipman [address] [place] [address] 06/19/2020 13:19:05 06/20/2020 14:01:38 Pruritic rash 69495285 L28.2 ? blistery with various healing stages.try bactrim and hydroxyzin e for itching Long-term drug therapy 239600257 Z79.992 [id number] MD Franko Shipman [address] [facility] [place] [address] 10/08/2020 15:27:32 10/09/2020 11:06:04 Essential hypertension 13113296 I10 Clinically feels well.Ct same with low salt diet Type 2 uri betes mellitus 97163868 E11.9 01/18/20 Under care by A1c was 7.1recomme nd to control BS better.f/u with your eye provider too yearly04/18Home BS improving. Does see /06/10A1c at Endo office in May 2020 was 10.5!home BS improving per the pt Pure hypercholesterolemia 725699876 E78.00 Low cholestrol diet emphasised Ct medication as prescribed Bladder mu scle dysfunction - overactive 962358506 N32.81 Feels well clinically . Long-term drug therapy 000225614 Z79.899 Edema of l ower extremity 887396339 R60.0 Take the medication keep the leg elevated while restingif no better call back Acute gingivitis 7908928 5 K05.00 recommend to f/u with your dentist.Am oxilOral care recommende d. [id number] MD Franko Shipman [address] [facility] [address] [place] [address] 01/29/2021 08:50:49 01/30/2021 17:44:53 Essential hypertension 67533107 I10 Clinically feels well.Ct same with low salt diet Type 2 uri betes mellitus 32341365 E11.9 10/08/20 A1c at Endo office in May 2020 was 10.5!home BS improving per the pt01/29/21A 1c in Sep 2020 6.9on jardiance 25 + Januvia 100+ glipizide 10 BIDHome BS better Pure hypercholesterolemia 429356314 E78.00 Low cholestrol diet emphasised Ct medication as prescribed Bladder mu scle dysfunction - overactive 849034919 N32.81 Feels well clinically . Long-term drug therapy 532598647 Z79.899 Acute uppe r respiratory infection 96982839 J06.9 Hydrate well. Use humidifier Take medication as prescribed , If getting worse come in / go to ER [id number] MD Franko Shipman [address] [facility] [address] [place] [address] 02/05/2021 11:04:44 02/06/2021 19:32:32 Acute upper respiratory infection 39450125 J06.9 Hydrate well. Use humidifier Take medication as prescribed , If getting worse come in / go to ER02/05/21n o much improvemen ttake Z shazia and medrol dos pakHydrate wellUse humifierGo to ErR if getting worse [id number] MD Franko Shipman [address] [place] [address] 02/26/2021 08:24:35 02/27/2021 07:23:35 COVID-19 770594590 U07.1 recovering . Asymptomat ic Imaging of lung abnormal 252196919 R91.8 Probably due to # 1 above. Will do f/u CXR as recommende d Multinodular goiter [address] at the ER Left morales thyroid 19 mm Refer to Endo also do u/s [id number] MD Franko Shipman [address] [place] [address] 06/05/2021 08:33:52 06/06/2021 13:38:34 Type 2 diabetes mellitus 35496012 E11.9 10/08/20A1 c at Endo office in May 2020 was 10.5!home BS improving per the pt01/29/21A 1c in Sep 2020 6.9on jardiance 25 + Januvia 100+ glipizide 10 BIDHome BS better06/05Doing well at homerecomm end f/u with eye Essential hypertension 74768712 I10 Clinically feels well.Ct same with low salt diet Pure hypercholesterolemia 488075747 E78.00 Low cholestrol diet emphasised Ct medication as prescribed Bladder mu scle dysfunction - overactive 697453692 N32.81 Feels well clinically . Multinodular goiter [address] at the ER Left morales thyroid 19 mm Refer to Endo also do u/06/05/21 FNA was benign [id number] MD Franko Shipman [address] [facility] [place] [address] 07/07/2021 14:30:04 07/08/2021 10:32:01 Acute upper respiratory infection 28239336 J06.9 Hydrate well. Use humidifier Take medication as prescribed , If getting worse come in / go to ER [id number] MD Franko Shipman [address] [facility] [place] [address] 09/23/2021 15:23:31 09/25/2021 15:41:36 Essential hypertension 62228860 I10 [address] same with low salt diet Type 2 uri betes mellitus 59760409 E11.9 01/29/21A1c in Sep 2020 6.9on jardiance 25 + Januvia 100+ glipizide 10 BIDHome BS better06/05Doing well at homerecomm end f/u with eye09/23/21 A1c per Endo on 08/14/21 was 8.7No Jardiance back on metformin home BS lately better per the pt Pure hypercholesterolemia 647814890 E78.00 Low cholestrol diet emphasised Ct medication as prescribed Bladder mu scle dysfunction - overactive 410532881 N32.81 Feels well clinically . Acute gingivitis 2921582 5 K05.00 recommend to f/u with your dentist.Am oxilOral care recommende d. Influenza vaccination declined 668448632 Z28.21 Screening for malignant neoplasm of colon 822243552 Z12.11 Refuses colonoscop y Long-term drug therapy 209093476 Z79.999 [id number] MD Franko Shipman [address] [facility] [address] [place] [address] 02/03/2022 09:57:30 02/04/2022 10:38:43 Type 2 diabetes mellitus 30281826 E11.9 09/23/21A1c per Endo on 08/14/21 was 8.7No Jardiance back on metformin home BS lately better per the pt02/03/22 ndo office A1c was 8.0 on 11/20/21Oz empic started per the Endo, increased to 1 mg weekly nowHome BS better controlled Does see Eye regularly Essential hypertension 44960085 I10 [address] same with low salt diet Pure hypercholesterolemia 237078033 E78.00 Low cholestrol diet emphasised Ct medication as prescribed Body mass index 30+ - obesity 439532883 Z68.39 Recommend to loose weight with diet control and exercise. Long-term drug therapy 863864176 Z79.899 Overactive urinary bladder 742151073 N32.81 better controlled .rarely uses pads [id number] MD Franko Shipman [address] [facility] [place] [address] 04/28/2022 11:52:24 04/28/2022 15:15:36 Acute upper respiratory infection 52972078 J06.9 Hydrate well. Use humidifier Take medication as prescribed , If getting worse come in / go to ER [id number] MD Franko Shipman [address] [facility] [place] [address] 06/09/2022 10:13:17 06/10/2022 14:23:48 Type 2 diabetes mellitus 89692672 E11.9 under care per 1c 8.3 in January later 7.3 probably in March at Endo per the ptscrewed up ozempic pens, now wants refill , on 1 mg weekly per - f/u on 07/03/22 theref/u with eye yearly Essential hypertension 12818469 I10 [address]rolled [address] same with low salt diet Bladder mu scle dysfunction - overactive 763546803 N32.81 Feels well clinically . Pure hypercholesterolemia 241800944 E78.00 Low cholestrol diet emphasised Ct medication as prescribed Overactive urinary bladder 296116511 N32.81 better controlled .rarely uses pads Obesity 028043778 E66.9 Recommend to loose weight with diet control and exercise. Occult blo od detected in feces 81286255 R19.5 OB positive- refer for colonoscop y'Spoke with pt. Pt stated that she did speak with Dr. Rolon office and that they explained the test to her. Pt stated that she declined the testing at this time. Pt states that she does not want the referral at this time.'per 05/05/22 notes, still doesn't want even to repeat cologuard test! Posterior rhinorrhea 758 59438 R09.82 Avoid known allergens. cetirizine helping Varicose v eins of lower extremity 95486946 I83.893 Had stripping 10-15 yrg agoCt with support hose.asymp tomatic [id number] MD Franko Shipman [address] [facility] [address] [place] [address] 10/06/2022 10:17:23 10/07/2022 09:30:16 Pure hypercholesterolemia 536059616 E78.00 Low cholestrol diet emphasised Ct medication as prescribed Essential hypertension 72883600 I10 [address]rolled [address] same with low salt diet Type 2 uri betes mellitus 70559998 E11.9 under care per 8.3 in January later 7.3 probably in March at [facility] per the ptscrewed up ozempic pens, now wants refill , on 1 mg weekly per - f/u on 07/03/22 theref/u with eye ohblkr65/1 04/12[place] betterNot see eye for sometime- recommend to f/u Bladder mu scle dysfunction - overactive 517730763 N32.81 Feels well clinically . History of varicose veins 135665811 Z86.79 Had surgery before. Using tika hose while on her feet.while wearing tika hose, feels better, no cramps lately Overactive urinary bladder 726539046 N32.81 better controlled .rarely uses pads Long-term drug therapy 337677107 Z79.899 Posterior rhinorrhea 758 90443 R09.82 Avoid known allergens. cetirizine sent before, not picked it up Screening for malignant neoplasm of colon 868540070 Z12.11 Refuses colonoscop y Influenza vaccination declined 840830052 Z28.21 Overweight 313552042 E66 .3 Recommend to loose weight with diet control and exercise. [id number] MD Franko Shipman [address] [facility] [address] [place] [address] 04/06/2023 09:39:41 04/06/2023 15:29:12 Type 2 diabetes mellitus 81688376 E11.9 under care per in Dec was 6.2 while on metformin 1G BID ,glipizide 10mg BID + ozempic 1 mg weeklyDoes see eye yearly Essential hypertension 44215170 I[address] same with low salt diet Overactive urinary bladder 064104661 N32.81 better controlled .rarely uses pads Pure hypercholesterolemia 559090076 E78.00 Low cholestrol diet emphasised Ct medication as prescribed Overweight 836289261 E66 .3 Recommend to loose weight with diet control and exercise. Posterior rhinorrhea 758 32121 R09.82 Avoid known allergens. cetirizine sent Long-term drug therapy 126861217 Z79.899 Administra tion of pneumococcal vaccine 89413744 Z23 Pt refused Postmenopausal state 764 21412 Z78.0 Refuses DEXA w/u [id number] MD Franko Shipman [address] [facility] [address] [place] [address] 07/27/2023 14:08:58 07/28/2023 11:08:35 Acute upper respiratory infection 59202320 J06.9 Hydrate well. Use humidifier Take medication as prescribed , If getting worse come in / [facility] to [facility] at home next few days for sneezing issueDo home covid test and call back Exposure t o SARS-CoV-2 383997626 Z20.799 [id number] MD Franko Shipman [address] [facility] [address] [place] [address] 08/17/2023 10:21:25 08/18/2023 14:10:06 Pure hypercholesterolemia 851235451 E78.00 Low cholestrol diet emphasised Ct medication as prescribed Type 2 uri betes mellitus 31457564 E11.9 Under care per 1c in Dec was 6.2 while on metformin 1G BID ,glipizide 10mg BID + ozempic 1 mg weeklyDoes see eye yearly08/17A1c 5.8 Endo 07/19/23- Glipizide reduced (5mg BID)On ozempic toodoes see eye Essential hypertension 75127878 I10 Controlled [address] same with low salt diet Overactive urinary bladder 782974577 N32.81 better controlled .Uses pads Overweight 588951499 E66 .3 Recommend to loose weight with diet control and exercise.) n Ozempic too per the Endo [id number] MD Franko Shipman [address] [facility] [address] [place] [address] 01/03/2024 10:07:40 01/04/2024 09:15:10 Type 2 diabetes mellitus 20422311 E11.9 08/17/23A1c 5.8 Endo 07/19/23- Glipizide reduced (5mg BID)On ozempic toodoes see eye Pure hypercholesterolemia 812483203 E78.00 Low cholestrol diet emphasised Ct medication as prescribed Essential hypertension 75364769 I10 Controlled [address] same with low salt diet Overactive urinary bladder 150123607 N32.81 better controlled .Uses pads Overweight 370969625 E66 .3 Recommend to loose weight with diet control and exercise.) on Ozempic too per the Endo Screening mammography 24 225002 Z12.31 [id number] MD Franko Holloway [address] [facility] [place] [address] 03/20/2024 11:10:13 03/28/2024 09:08:13 Type 2 diabetes mellitus 87955082 E11.9 Most recent HbA1c: 6.0 last month; [...] in July. Dr. Porter Screening for osteoporosis 857617194 Z13.820 SARS-CoV-2 mRNA vaccine declined 3595744151 Z28.21 Influenza vaccination declined 817554368 Z28.21 [id number] MD Franko Ash [address] [facility] [address] [place] [address] 02/02/2025 10:45:06 02/06/2025 13:28:11 Obesity 347827869 E66.9 lifestyle modificati ons discussed Essential hypertension 45514976 I10 chronic, controlled - continue HCTZ 25 mg po od, lisinopril 10 mg po od Type 2 uri betes mellitus 18022219 E11.9 chronic, controlled A1c (11/14): 6.7%on glipizide 5 mg po bid, ozempic 2 mg sc weeklyFoll sheila w/ Dr. Leeroy- sugars controlled at home- discussed feet checks, eye checks (does diabetic foot exam for patient)- continue annual eye exams Pure hypercholesterolemia 960150402 E78.00 chronic, controlled - continue lovastatin 10 mg po od Screening for malignant neoplasm of colon 032377984 Z12.11 Options discussed with patient for CRC [...] tion of diphtheria, pertussis, and tetanus vaccine 540541493 Z23 [id number] MD Franko Ash [address] [facility] [address] [place] [address] 05/07/2025 10:21:08 05/11/2025 09:56:51 Adult health examination 879304247 Z00.00 Health Risk Assessment collected and reviewed History an d physical examination, annual for health maintenance 93450911 Z00.00 3531720 Health Risk Assessment collected and reviewedSL UMS: Patie nt is going to be moving in with her FianceeEver, who she states she will make the POA [id number] MD Franko Don [address] [facility] [address] [place] [address] 08/14/2025 11:35:29 08/16/2025 09:25:59 Well woman health examination 207030309 Z01.419 424901 - 70 y/o F A0 here for well woman exam- Doing well- Breast exam normal- Genital exam deferred due to patient preference - Postmenopa usal- had partial hysterecto my about 35 years ago- Denies h/o abnormal pap smears- Mammogram up to date- f/u in 1 year Postmenopausal state 764 42814 Z78.0 - See above Overweight 281906984 E66 .3 Health Concerns Section Related Observation [...] MEDICARE OR MEDICARE REPLACEMENT PRIMARY) Germaine Lui [id number] Germaine Lui 06/06/2025 2 [place] [facility] DEPARTMENT OF PUBLIC AID Germaine Lui [id number] Germaine Lui 06/06/2025 [place] [facility] Germaine Lui [id number] Germaine Lui 06/06/2025 3 [place] Germaine Lui [id number] Germaine Lui 04/22/2023 1 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 03/24/2024 18:10:13 5 text/htm l ROS as noted in the HPI 70 female presenting to [facility]. No concerns today.Pt denies headache, dizziness, [...] weekly Enrrique Montalvo MD Attn: Accounting[address] , [place], [address], [facility] 02/05/2025 17:03:25 5 text/htm l MAW 2Reported [...] HPI Enrrique Montalvo MD Attn: Accounting[address] [facility], [place], [address], [facility] 05/10/2025 23:03:41 5 text/htm l Annual GYNReported [...] concerns. Ramakrishna Yadav MD Attn: Accounting[address] [place], [address], [facility] 08/15/2025 12:45:55 OBGyn Episode No OBEpisode recorded.
--- OUTSIDE RECORDS SUMMARY | 2025-11-12 14:16 | XMS_ITS | Continuity of Care Document ---
Author Organization [facility] 14 Address [address] [facility] [address] [place] [address] Care Team Providers Care Police Officer Name Role Phone [facility] Spinneret Person [phone] Assessment No assessment recorded. Plan of Treatment Reminders Order Date Submit Date Provider Last Modified By Organization Details Last Modified Time Details Appointments ANY 60 025 02:00PM Maria Alejandra Paez MD Not available Not available Not available Lab None record ed. Referral None record ed. Procedures None record ed. Surgeries None record ed. Imaging None record ed. Medication Orders None record ed. Patient TargetsNo targets recorded. Patient Instructions Encounter Date Encounter Id Patient Instructions Last Modified By Organization Details Last Modified Time 08/14/2025 [id number] A healthy lifestyle: care instructions [email or web address] Not available 08/15/2025 12:45:21 I was present an d available in the clinic during the encounter. I discussed the patient's history, exam findings, and plan with the resident physician and agree with the assessment and plan as documented. MD [email or web address] Not available 08/15/2025 12:45:10 Reason for Referral None Reported. Problems Name Problem SNOMED Code Status Onset Date Resolution Date Notes Provider Name and Address Organization Details Recorded Time Type 2 diabetes mellitus 34441437 Active 2016 Ryan Coats MD Attn: Accounting[address] [place], [address], [place] [facility] 11:24:37 Essential hypertens ion 15946442 Active 2016 Ryan Coats MD Attn: Accounting, [address] [place], [address], [place] - [facility] 5 11:24:24 History of varicose veins 425182973 Active 2016 Not Available [facility] 3 07:33:44 Pure hyperchol esterolem ia 445586571 Active 2017 Enrrique Montalvo MD Attn: Accounting, [address] [place], [address], [place] [facility] 5 11:50:48 Vitamin D deficienc y 93999257 Completed 201701/18/2020 Trish Og MD Attn: Accounting, [address] [place], [address], [place] [facility] 0 12:08:53 Generaliz ed anxiety disorder 57147949 Completed 201709/13/2018 Trish Og MD Attn: Accounting, [address] [facility], [place], [address], [place] - [facility] 8 16:51:23 Obesity 942433500 Completed 201709/13/2018 Trsih Og MD Attn: Accounting, [address] [place], [address], [place] [facility] 2 10:32:09 Thoracic back pain 031015932 Completed 201701/18/2020 Trish Og MD Attn: Accounting, [address] [place], [address], [place] [facility] 0 10:28:43 Body mass index 30+ - obesity 832626539 Active 2017 Not Available [facility] 3 07:33:44 Posterior rhinorrhe a 96748265 Active 2018 Not Available [facility] 3 07:33:44 Multinodu lar goiter 073583001 Active 2020 Not Available [facility] 3 07:33:44 Overactiv e urinary bladder 226146616 Active 2021 Not Available [facility] 3 07:33:44 Obesity 857191190 Active 2021 Not Available [facility] 3 07:33:44 Occult blood detected in feces 63598881 Active 2021 Not Available [facility] 3 07:33:44 Varicose veins of lower extremity 28862201 Active 2021 Not Available [facility] 3 07:33:44 Postmenop ausal state 24568491 Active 2022 Not Available [facility] 3 07:33:44 Hypokalem ia 23537054 Active 2024 Ryan Coats MD Attn: Accounting, [address] [place], [address], [facility] 5 09:54:27 Problem Notes None recorded. Procedures Surgical History Date Name Laterality Status Provider Name and Address Organization Details Recorded Time Tubal Ligation completed SAMIRA Sapp [place] 09/27/2017 11:25:56 Breast Surgery completed SAMIRA Sapp [place] [facility] 09/27/2017 11:26:03 Imaging Results None recorded. Procedure Notes None recorded. Medical Equipment None Reported. Allergies Allergen ID Allergen Name Allergen Category Reaction Reaction Severity Criticality Documentation Date Start Date Code Code System Note Provider Name and Address Organization Details Recorded Time 736554 No known allergy (situatio n) Not available Not available Not available Not available 06/05/2021 58909 6003 SNOMED SAMIRA Sinha, [place] - [facility] 5 10:34:50 No known drug allergies Medications [...] completed Not Available Not Available Not Available [employer] Ultra Test strips USE TO TEST ONCE [...] subcutan eous route. 06/[address] Grace Not Available Not Available Not Available [employer] [...] Updated DateTime 5 170.18 cm 29 kg/m2 27857.5 9 g 77 /min 98 [degF] 16 /min 99 % 108/73 mm[Hg] Jeana Cunningham MA [facility] 5 11:57:17 Social History Question Answer Notes LastModified by Organizat ion Details LastModified Time Tobacco Smoking Status Never Smoker SAMIRA Sapp, [place] - [facility] 06/17/2018 11:29:06 Do You Have [...] 7 Days, How Much Pain Have You [place]? None Information not available 05/07/2025 In General, Would You Say You Health Is: Good Information not available 05/07/2025 Each Night, How Many Hours Of Sleep Do You Get? 8 Information no t available 05/07/2025 In The Past 7 Days, How Often Have You [place] Sleepy In The Daytime? Rarely Information not [...] anxious, or unable to sleep at night)? WE0864-5 Information not available 07/07/2021 Family History Relationship [...] High Blood Pressure Y Atrial Fibrillation N Thyroid Problems N Kidney or Bladder Problems N Depression N COPD N Blood Clots N GI Problems N Have you had a mammogram in [...] Hepatitis N Liver Disease N Headaches N Osteoporosis N Heart Failure N Gynecological History Statement/Question Response Current Control Method Hysterectom y LMP Unknown Obstetrics History GPAL:G 2 P 0 0 0 2 Type Value Living 2 Total 2 Past Encounters Encounter ID Performer Location Encounter Start Date Encounter Closed Date Diagnosis/Indication Diagnosis SNOMED-CT Code Diagnosis ICD10 Code Diagnosis IMO Codes Diagnosis Note [id number] Ramakrishna Yadav MD Benji 14 IM [address] [facility] [address] [place] [address] 08/14/2025 11:35:29 08/16/2025 09:25:59 Well woman health examination 816554253 Z01.419 205083 - 70 y/o F A0 here for well woman exam- Doing well- Breast exam normal- Genital exam deferred due to patient preference - Postmenopa usal- had partial hysterecto my about 35 years ago- Denies h/o abnormal pap smears- Mammogram up to date- f/u in 1 year Postmenopausal state 764 48627 Z78.0 - See above Overweight 518205386 E66 .3 Health Concerns Section Related Observation LastModified by Organization Detai ls LastModified Time None Recorded Concern Status LastModified by Organization Details LastModified Time None Recorded Payers Encounter Date Sequence Insurance Name Policy Number Policy James Covered Member ID James Member ID Guarantor Name 08/14/2025 1 [facility] (MEDICARE REPLACEMENT HMO) Germaine Lui [id number] Germaine Lui Notes Date Note Type Note Provider Name and Address Organization Details Recorded Time 5 text/html Annual GYNReported by PatientHistoryFor history, patient reportsno [...] smear.No other concerns. Ramakrishna Yadav MD Attn: Accounting[address] [place], [address], [facility] 08/15/2025 12:45:55 OBGyn Episode No OBEpisode recorded.
== END 2025-11-12 13:06 | disposition home or self-care (01) ==
PROVIDERS: Emergency Provider Nurse Practitioner Family
DX: J06.9 Acute upper respiratory infection, unspecified (principal); E11.9 Type 2 diabetes mellitus without complications; Z79.84 Long term (current) use of oral hypoglycemic drugs; I10 Essential (primary) hypertension; E78.00 Pure hypercholesterolemia, unspecified
CPT/HCPCS: 99211; G0463